=== PATIENT | female | born 1945 | race Caucasian/White ===

== ENCOUNTER 2018-11-07 16:55 | Inpatient (IN) | payer MEDICARE, OTHER ==
[2018-11-07] MEDS ORDERED: NORMAL SALINE 1000 ML 1,000 ML IV ONE ×2 (17:21→18:58)
[2018-11-07] MEDS ORDERED: ONDANSETRON HCL INJ/PF 4 MG/2 ML SDV IV ONE (17:22)
[2018-11-07 18:18] LABS: ABSOLUTE BASOPHILS # (AUTO) 0.2 10^3/uL (0.0-0.2); ABSOLUTE EOSINOPHILS # (AUTO) 0.2 10^3/uL (0.0-0.6); ABSOLUTE LYMPHOCYTES (AUTO) 2.1 10^3/uL (0.5-4.7); ABSOLUTE MONOCYTES (AUTO) 0.5 10^3/uL (0.1-1.4); ABSOLUTE NEUT (AUTO) 16.9 10^3/uL (1.7-8.2); EOSINOPHILS % (AUTO) 0.8 % (0-6); HEMATOCRIT 38.7 % (36.0-47.0); HEMOGLOBIN 12.6 g/dL (12.0-15.5); LYMPHOCYTES % (AUTO) 10.6 % (13-45); MEAN CORPUSCULAR HEMOGLOBIN 31.2 pg (27.0-33.4); MEAN CORPUSCULAR HGB CONC 32.7 g/dL (32.0-36.0); MEAN CORPUSCULAR VOLUME 96 fl (80-97); MONOCYTES % (AUTO) 2.7 % (3-13); PLATELET COUNT 299 10^3/uL (150-450); RED BLOOD COUNT 4.05 10^6/uL (3.72-5.28); SEGMENTED NEUTROPHILS % (AUTO) 84.9 % (42-78); TOTAL CELLS COUNTED % (AUTO) 100 %; WHITE BLOOD COUNT 19.8 10^3/uL (4.0-10.5)
[2018-11-07 18:19] LABS: VENOUS BLOOD BASE EXCESS -6.8 mmol/L; VENOUS BLOOD HCO3 18.5 mmol/L (20-32); VENOUS BLOOD PCO2 36.7 mmHg (35-63); VENOUS BLOOD PH 7.32 (7.30-7.42)
[2018-11-07 18:37] LABS: ALANINE AMINOTRANSFERASE 18 U/L (9-52); ALKALINE PHOSPHATASE 115 U/L (38-126); ANION GAP 16 (5-19); ASPARTATE AMINO TRANSFERASE 36 U/L (14-36); BILIRUBIN,DIRECT 0.2 mg/dL (0.0-0.4); BILIRUBIN,TOTAL 0.7 mg/dL (0.2-1.3); BLOOD UREA NITROGEN 23 mg/dL (7-20); CALCIUM 9.4 mg/dL (8.4-10.2); CARBON DIOXIDE 19 mmol/L (22-30); CHLORIDE 100 mmol/L (98-107); LIPASE 81.9 U/L (23-300); POTASSIUM 5.9 mmol/L (3.6-5.0); SODIUM 134.8 mmol/L (137-145); TOTAL PROTEIN 8.2 g/dL (6.3-8.2)
[2018-11-07 18:45] LABS: GLUCOSE 498 mg/dL (75-110)
--- NOTE | 2018-11-07 18:53 | EKG REPORT ---
SEVERITY:- OTHERWISE NORMAL ECG - SINUS TACHYCARDIA : Confirmed by: Esequiel Vicente MD 07-Nov-2018 18:52:47
[2018-11-07] MEDS ORDERED: INSULIN REG, HUMAN 100 UNIT/ML 3 ML VIAL (PYX) IV ONE (19:17)
[2018-11-07] MEDS ORDERED: CALCIUM GLUCONATE 1000 MG/10 ML INJ IV ONE (19:17)
--- NOTE | 2018-11-07 21:27 | RADIOLOGY REPORT (SQ) ---
XR CHEST 2 VIEWS HISTORY: Nausea and vomiting. COMPARISON: None. FINDINGS: The heart size is normal. The lungs are clear. No pleural effusions or pneumothorax is seen. No acute bony findings. IMPRESSION: No evidence of acute cardiopulmonary disease.
[2018-11-07] MEDS ORDERED: PIPERACILLIN/TAZOBACTAM 3.375 GM VIAL IV ONE (22:18)
--- NOTE | 2018-11-07 22:22 | ER Document Report ---
ED General - General Chief Complaint: Nausea/Vomiting Stated Complaint: ABDOMINAL PAIN Time Seen by Provider: 11/07/18 17:21 TRAVEL OUTSIDE OF THE [place] IN LAST 30 DAYS: No - HPI Patient complains to provider of: nausea Onset: Other - 73-year-old female with diabetes type 2 that presents for evaluation of profound weakness and fatigue as well as persistent nausea which began gradually earlier today and worsened acutely while she was showering leading her to feel profoundly nauseous lightheaded and like she might fall to the ground at which time she laid in the bed at her 's behest only to have an increase in nausea anytime she moved thereafter. She has never felt li ke this in the past, she did have some abdominal pain and cramping associated with this. She notes that she had one massive bowel movement this morning with a little bit of blood but no other symptoms. She denies any episodes of chest pain shortness of breath recent rashes recent illnesses recent medication changes or other illnesses. - Related Data Allergies/Adverse Reactions: acetaminophen [From Darvocet-N] Allergy (Verified 11/07/18 18:11) propoxyphene [From Darvocet-N] Allergy (Verified 11/07/18 18:11) warfarin Allergy (Verified 11/07/18 18:11) Penicillins Adverse Reaction (Verified 11/07/18 18:11) pcn Adverse Reaction (Uncoded 11/07/18 18:11) Past Medical History - General Information source: Patient, Relative - Social History Smoking Status: Never Smoker Chew tobacco use (# tins/day): No Frequency of alcohol use: None Family History: None Patient has suicidal ideation: No Patient has homicidal ideation: No Renal/ Medical History: Denies: Hx Peritoneal Dialysis Review of Systems - Review of Systems -: Yes All other systems reviewed and negative Physical Exam - Vital signs Vitals: Resp 25 H 11/07/18 16:59 - General General appearance: Anxious, Lethargic In distress: Moderate - HEENT Head: Normocephalic Eyes: Normal Conjunctiva: Normal Cornea: Normal Eyelashes: Normal Pupils: PERRL - Respiratory Respiratory status: Tachypnea Chest status: Nontender Breath sounds: Normal Chest palpation: Normal - Cardiovascular Rhythm: Tachycardia Heart sounds: Normal auscultation - Abdominal Inspection: Normal Distension: No distension Bowel sounds: Normal Tenderness: Nontender - Back Back: Normal, Nontender - Extremities General upper extremity: Normal inspection, Nontender, Normal strength, Normal temperature General lower extremity: Normal inspection, Nontender, Normal strength, Normal temperature - Neurological Neuro grossly intact: Yes Cognition: Normal Orientation: AAOx4 [place] Coma Scale Eye Opening: Spontaneous [place] Coma Scale Verbal: Oriented [place] Coma Scale Motor: Obeys Commands [place] Coma Scale Total: 15 Speech: Normal Cranial nerves: Normal Cerebellar coordination: Normal Motor strength normal: LUE, RUE, LLE, RLE - Psychological Associated symptoms: Normal affect Course - Re-evaluation Re-evalutation: Here is a woman who upon arrival appeared in obvious distress, she was di aphoretic, clammy skin and with active retching in the bed. She is complaining of profound nausea without obvious pain anywhere. Had been doing okay prior to this. Because of her ill appearance initiated broad workup including CBC CMP lactic acid chest x-ray EKG troponin. Administered Zofran for patient's nausea as well as initiated fluids. Was contacted as this patient's initial lactic acid was profoundly elevated at greater than 5. Patient was noted to have hyperglycemia, hyperkalemia, and a profound leukocytosis. Administered insulin as well as calcium gluconate for patient's potassium. She had an EKG performed which was nondiagnostic. Following administration of Zofran and IV fluids the patient noted that her nausea persisted but she was actually feeling much better at this time her heart rate work of breathing and blood pressure had normalized. A more thorough physical examination was undertaken at this time, she was given a head to toe skin examination which did not demonstrate any decubitus ulcers, obvious injuries, no rashes, no abrasions. Her lung sounds were clear. Her abdominal examination remained benign on repeated examination. She had approximately 4 examinations. She continued to have intermittent belching and retching. Proceeded with a second troponin which was again negative for this patient. Repeated lactate was undertaken. Her repeated lactate was elevated in comparison to previous, the determination was made to administer prophylactic antibiotics in case of any abdominal catastrophe and pending. Because of the patient's limited exam secondary to her habitus proceeded with CT imaging of the abdomen and pelvis in case of any underlying abscess or potential underlying ischemia. CT abdomen and pelvis did not demonstrate any obvious cause for this patient's profound nausea, abdominal symptoms, lightheadedness and weakness. Because this patient has derangements including a leukocytosis, elevated lactate, some shortness of breath and an AK I as well as hyperkalemia believe she would benefit from admission to the hospital reassessment and monitoring. She has been admitted to the hospitalist Dr. Rankin who agrees to evaluate and admit this patient. At this time she says that her nausea is likely result of her underlying reflux that she would like something to help with it, will order Pepcid as well as fentanyl for this patient's reflux. - Vital Signs Vital signs: Temp Pulse Resp BP Pulse Ox 98.7 F 12 103/48 L 99 11/07/18 23:28 11/07/18 23:01 11/07/18 23:01 11/07/18 23:01 - Laboratory Result Diagrams: 11/07/18 18:00 11/07/18 18:00 Laboratory results interpreted by me: 11/07/18 11/07/18 11/07/18 17:03 18:00 18:00 WBC 19.8 H Seg Neutrophils % 84.9 H Lymphocytes % 10.6 L Monocytes % 2.7 L Absolute Neutrophils 16.9 H VBG HCO3 Sodium 134.8 L Potassium 5.9 H Carbon Dioxide 19 L BUN 23 H Creatinine 1.30 H Est GFR ( Amer) 49 L Est GFR (Non-Af Amer) 40 L Glucose 498 H* POC Glucose 353 H Lactic Acid Urine Protein Urine Glucose (UA) Urine Ketones Urine Blood 11/07/18 11/07/18 11/07/18 18:00 18:00 21:13 WBC Seg Neutrophils % Lymphocytes % Monocytes % Absolute Neutrophils VBG HCO3 18.5 L Sodium Potassium Carbon Dioxide BUN Creatinine Est GFR ( Amer) Est GFR (Non-Af Amer) Glucose POC Glucose Lactic Acid 5.7 H Urine Protein 30 H Urine Glucose (UA) >=500 H Urine Ketones TRACE H Urine Blood LARGE H 11/07/18 21:45 WBC Seg Neutrophils % Lymphocytes % Monocytes % Absolute Neutrophils VBG HCO3 Sodium Potassium Carbon Dioxide BUN Creatinine Est GFR ( Amer) Est GFR (Non-Af Amer) Glucose POC Glucose Lactic Acid 6.2 H Urine Protein Urine Glucose (UA) Urine Ketones Urine Blood Discharge - Discharge Clinical Impression: Nausea, Lactic acid acidosis Leukocytosis Qualifiers: Leukocytosis type: unspecified Qualified Code(s): D72.829 - Elevated white bl ood cell count, unspecified Condition: Stable Disposition: ADMITTED INPATIENT Admitting Provider: Hospitalist Unit Admitted: Medical Floor
[2018-11-07 22:31] LABS: APPEARANCE,URINE CLOUDY; BILIRUBIN,URINE NEGATIVE (NEGATIVE); COLOR,URINE AMBER; GLUCOSE, URINE >=500 mg/dL (NEGATIVE); KETONES,URINE TRACE mg/dL (NEGATIVE); LEUKOCYTE ESTERASE,URINE NEGATIVE (NEGATIVE); NITRITE,URINE NEGATIVE (NEGATIVE); PROTEIN,URINE 30 mg/dL (NEGATIVE); URINE SPECIFIC GRAVITY 1.018; UROBILINOGEN,URINE NEGATIVE mg/dL (<2.0)
[2018-11-07] MEDS: NORMAL SALINE 1000 ML 1,000 ML IV PRN (23:48)
--- NOTE | 2018-11-07 23:58 | RADIOLOGY REPORT (SQ) ---
CT ABDOMEN PELVIS WITH IV CONTRAST HISTORY: Lower back pain. COMPARISON: None. TECHNIQUE: CT scan of the abdomen and pelvis with IV contrast. This exam was performed according to our departmental dose-optimization program, which includes automated exposure control, adjustment of the mA and/or kV according to patient size and/or use of iterative reconstruction technique. FINDINGS: The lung bases are clear. No pleural or pericardial effusions. There is hepatic steatosis. The gallbladder, spleen, pancreas, adrenal glands, and kidneys are unremarkable. No obstructing urinary stones. A simple renal cyst is seen in the left kidney. The pelvic organs are also unremarkable. No small bowel obstruction. There are scattered colonic diverticula without surrounding inflammatory changes. There has been a prior appendectomy. There is intramural wall thickening of the colon suggesting sequela of colitis. No intraperitoneal free fluid or free air is seen. The aorta is normal caliber and contains atherosclerotic calcifications. An infrarenal IVC filter is present. Prior L4-L5 posterior spinal and interbody fusion. Prior total left hip arthroplasty. 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 IMPRESSION: 1. No acute intra-abdominal pathology. 2. Diverticulosis without inflammatory findings. 3. L4-L5 posterior spinal fusion with hardware grossly intact. 4. 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
[2018-11-08] MEDS ORDERED: INSULIN REG, HUMAN 100 UNIT/ML 3 ML VIAL (PYX) IV ONE (00:04)
[2018-11-08] MEDS ORDERED: FAMOTIDINE 20 MG TABLET PO ONE (00:29)
[2018-11-08] MEDS ORDERED: FENTANYL CITRATE INJ/PF 100 MCG/2 ML AMPUL IV ONE (00:29)
[2018-11-08] MEDS ORDERED: MAGNESIUM HYDROXIDE SUSP 30 ML UDCUP PO PRN (01:51)
[2018-11-08] MEDS ORDERED: MAG HYDROX/AL HYDROX/SIMETH SUSP 30 ML UDCUP PO PRN (01:51)
[2018-11-08] MEDS ORDERED: HYDRALAZINE HCL INJ/PF 20 MG/1 ML SDV IV PRN (01:59)
[2018-11-08] MEDS ORDERED: GLUCAGON,HUMAN RECOMB 1 MG INJ IM PRN (02:03)
[2018-11-08] MEDS ORDERED: DEXTROSE 50%-WATER 25 GM/50 ML DISP.SYRIN IV PRN ×2 (02:03)
[2018-11-08] MEDS ORDERED: DEXTROSE 40% GEL 15 GM TUBE PO PRN ×2 (02:03)
[2018-11-08] MEDS ORDERED: INSULIN REG, HUMAN 100 UNIT/ML 3 ML VIAL (PYX) SUBCUT PRN (02:03)
[2018-11-08] MEDS: NORMAL SALINE 1000 ML 1,000 ML IV PRN ×5 (02:07→21:25)
[2018-11-08] MEDS ORDERED: SODIUM POLYSTYRENE SULFONATE 15 GM/60 ML PO ONE (02:30)
[2018-11-08 04:23] LABS: ABSOLUTE LYMPHOCYTES (AUTO) 1.7 10^3/uL (0.5-4.7); ABSOLUTE MONOCYTES (AUTO) 0.7 10^3/uL (0.1-1.4); BASOPHILS % (AUTO) 0.3 % (0-2); EOSINOPHILS % (AUTO) 0.1 % (0-6); HEMATOCRIT 35.3 % (36.0-47.0); HEMOGLOBIN 11.4 g/dL (12.0-15.5); MEAN CORPUSCULAR HEMOGLOBIN 30.8 pg (27.0-33.4); MEAN CORPUSCULAR HGB CONC 32.3 g/dL (32.0-36.0); MEAN CORPUSCULAR VOLUME 96 fl (80-97); MONOCYTES % (AUTO) 4.8 % (3-13); PLATELET COUNT 166 10^3/uL (150-450); RED CELL DISTRIBUTION WIDTH 13.8 % (11.5-14.0); SEGMENTED NEUTROPHILS % (AUTO) 83.8 % (42-78); TOTAL CELLS COUNTED % (AUTO) 100 %; WHITE BLOOD COUNT 15.5 10^3/uL (4.0-10.5)
[2018-11-08] MEDS: NALBUPHINE HCL INJ 10 MG/1 ML AMPULE IV PRN ×2 (04:35→14:50)
[2018-11-08 04:41] LABS: ANION GAP 15 (5-19); BLOOD UREA NITROGEN 27 mg/dL (7-20); CALCIUM 8.2 mg/dL (8.4-10.2); CARBON DIOXIDE 18 mmol/L (22-30); CHLORIDE 105 mmol/L (98-107); CHOLESTEROL 210.79 mg/dL (0-200); POTASSIUM 5.5 mmol/L (3.6-5.0); SODIUM 137.5 mmol/L (137-145); TRIGLYCERIDES 243 mg/dL (<150)
[2018-11-08 04:53] LABS: DIRECT LDL 106 mg/dL (<100)
[2018-11-08 04:55] LABS: CREATINE KINASE MB 0.81 ng/mL (<4.55); TROPONIN I 0.018 ng/mL
[2018-11-08 05:00] LABS: FREE T3 2.62 pg/mL (2.77-5.27); FREE T4 (FREE THYROXINE) 1.53 ng/dL (0.78-2.19)
[2018-11-08 05:08] LABS: VLDL CHOLESTEROL 48.6 mg/dL (10-31)
[2018-11-08 05:09] LABS: GLUCOSE 455 mg/dL (75-110)
[2018-11-08 05:14] LABS: THYROID STIMULATING HORMONE 2.74 uIU/mL (0.47-4.68)
--- NOTE | 2018-11-08 05:14 | PDOC H&P ---
History of Present Illness Admission Date/PCP: 11/08/18 00:33 LOU EDWARDS MD Patient complains of: Generalized weakness History of Present Illness: ZAID DONALDSON is a 73 year old female presented to the emergency room with a 1 day history of severe generalized weakness. Patient admits that she began feeling severely weak earlier today and also noted intermittent mild nausea and a brief episode of mild abdominal cramping pain of a vague generalized nature. She decided to take a shower, however she soon had worsening of her weakness and became very lightheaded feeling like she may fall in the shower. She made her way to the bedroom and laid down on the bed and seemed to improve a little bit as long as she did not move. Any movement resulted in a significant increase in her sensation of weakness and nausea. She had a large bowel movement this morn ing and noticed a small amount of blood when she wiped which is not unusual for her. She denies prior similar episodes and has not identified any additional aggravating or ameliorating factors for her symptoms. In the emergency room she was found to to be hemodynamically stable, but to have a blood sugar of 498 as well as a leukocytosis of greater than 19,000. Her serum potassium was 5.9 and her serum lactate was initially 5.7 rising to 6.2 after receiving IV fluid therapy. Her BUN was slightly elevated at 23 and her creatinine was slightly elevated at 1.3. With these findings patient was admitted for further evaluation and treatment of her SIRS syndrome. Past Medical History Cardiac Medical History: Denies: Atrial Fibrillation, Coronary Artery Disease, DVT, Hyperlipidema, Hypertension, Pulmonary Embolism Pulmonary Medical History: Denies: Asthma, Chronic Obstructive Pulmonary Disease (COPD) EENT Medical History: Reports: Other - Bad teeth Denies: Cataracts Neurological Medical History: Denies: Multiple Sclerosis, Seizures Endocrine Medical History: Reports: Diabetes Mellitus Type 2, Hypothyroidism, Obesity Denies: Diabetes Mellitus Type 1, Hyperthyroidism Renal/ Medical History: Denies: Chronic Kidney Disease, Nephrolithiasis Malignancy Medical History: Reports: None GI Medical History: Denies: Cirrhosis, Hepatitis Musculoskeltal Medical History: Reports: Arthritis, Other - Recent right hip pain Denies: Fibromyalgia, Gout Skin Medical History: Denies: Eczema, Psoriasis Psychiatric Medical History: Denies: Alcohol Dependency, Substance Abuse, Tobacco Dependency Traumatic Medical History: Reports: None Hematology: Denies: Anemia, Bleeding Tendencies Infectious Medical History: Reports: None Past Surgical History Past Surgical History: Reports: Hip Replacement, Orthopedic Surgery - Left hip replacement Social History Information Source: Patient Lives with: Spouse/Significant other Smoking Status: Never Smoker Frequency of Alcohol Use: None Hx Recreational Drug Use: No Drugs: None Hx Prescription Drug Abuse: No - Advance Directive Resuscitation Status: Full Code Surrogate healthcare decision maker:: Family History Family History: Arthritis, DM, Thyroid Disfunction Parental Family History Reviewed: Yes Children Family History Reviewed: No Sibling(s) Family History Reviewed.: Yes Medication/Allergy Allergies/Adverse Reactions: acetaminophen [From Darvocet-N] Allergy (Verified 11/07/18 18:11) propoxyphene [From Darvocet-N] Allergy (Verified 11/07/18 18:11) warfarin Allergy (Verified 11/07/18 18:11) Penicillins Adverse Reaction (Verified 11/07/18 18:11) pcn Adverse Reaction (Uncoded 11/07/18 18:11) Review of Systems Constitutional: ABSENT: chills, fever(s) Eyes: ABSENT: visual disturbances, other - Ocular pain Ears: ABSENT: hearing changes, other - Ear pain Nose, Mouth, and Throat: ABSENT: mouth pain, sore throat Cardiovascular: ABSENT: chest pain, dyspnea on exertion, palpitations Respiratory: ABSENT: cough, dyspnea Gastrointestinal: PRESENT: as per HPI, abdominal pain - Mild cramping, nausea - With gagging. ABSENT: constipation, diarrhea Genitourinary: ABSENT: dysuria, hematuria Musculoskeletal: ABSENT: deformity, joint swelling Integumentary: ABSENT: pruritus, rash Neurological: ABSENT: confusion, convulsions, memory loss, tremor(s) Psychiatric: ABSENT: anxiety, depression Endocrine: ABSENT: cold intolerance, heat intolerance Hematologic/Lymphatic: ABSENT: easy bleeding, easy bruising Physical Exam Vital Signs: Temp Pulse Resp BP Pulse Ox 98.7 F 12 103/48 L 99 11/07/18 23:28 11/07/18 23:01 11/07/18 23:01 11/07/18 23:01 Intake & Output 11/06/18 11/07/18 11/08/18 23:59 23:59 23:59 Intake Total 1999 Balance 1999 Weight 111.13 kg General appearance: PRESENT: no acute distress, cooperative, morbidly obese Head exam: PRESENT: atraumatic, normocephalic Eye exam: PRESENT: conjunctiva pink, EOMI. ABSENT: scleral icterus Ear exam: PRESENT: normal external ear exam. ABSENT: bleeding, drainage Mouth exam: PRESENT: dry mucosa, neck supple Teeth exam: PRESENT: poor dentation Neck exam: ABSENT: thyromegaly, tracheal deviation Respiratory exam: PRESENT: clear to auscultation heron, symmetrical, unlabored Cardiovascular exam: PRESENT: RRR. ABSENT: clicks, gallop, rubs Pulses: PRESENT: normal radial pulses, normal dorsalis pedis pul Vascular exam: PRESENT: normal capillary refill. ABSENT: pallor GI/Abdominal exam: PRESENT: normal bowel sounds, soft. ABSENT: tenderness Rectal exam: PRESENT: deferred Extremities exam: ABSENT: joint swelling, pedal edema Musculoskeletal exam: ABSENT: deformity, dislocation Neurological exam: PRESENT: alert, oriented to person, oriented to place, oriented to time, oriented to situation, CN II-XII grossly intact. ABSENT: motor sensory deficit Psychiatric exam: PRESENT: appropriate affect, normal mood Skin exam: PRESENT: dry, intact, warm. ABSENT: jaundice, rash, urticaria Results Laboratory Results: 11/07/18 18:00 11/07/18 18:00 11/07/18 11/07/18 11/07/18 18:00 18:00 18:00 WBC 19.8 H RBC 4.05 Hgb 12.6 Hct 38.7 MCV 96 MCH 31.2 MCHC 32.7 RDW 14.0 Plt Count 299 Seg Neutrophils % 84.9 H Lymphocytes % 10.6 L Monocytes % 2.7 L Eosinophils % 0.8 Basophils % 1.0 Absolute Neutrophils 16.9 H Absolute Lymphocytes 2.1 Absolute Monocytes 0.5 Absolute Eosinophils 0.2 Absolute Basophils 0.2 VBG pH VBG pCO2 VBG HCO3 VBG Base Excess Sodium 134.8 L Potassium 5.9 H Chloride 100 Carbon Dioxide 19 L Anion Gap 16 BUN 23 H Creatinine 1.30 H Est GFR ( Amer) 49 L Est GFR (Non-Af Amer) 40 L Glucose 498 H* Lactic Acid 5.7 H Calcium 9.4 Total Bilirubin 0.7 AST 36 ALT 18 Alkaline Phosphatase 115 Total Protein 8.2 Albumin 5.0 Lipase 81.9 Urine Color Urine Appearance Urine pH Ur Specific [place] Urine Protein Urine Glucose (UA) Urine Ketones Urine Blood Urine Nitrite Ur Leukocyte Esterase Urine WBC (Auto) Urine RBC (Auto) 11/07/18 11/07/18 11/07/18 18:00 21:13 21:45 WBC RBC Hgb Hct MCV MCH MCHC RDW Plt Count Seg Neutrophils % Lymphocytes % Monocytes % Eosinophils % Basophils % Absolute Neutrophils Absolute Lymphocytes Absolute Monocytes Absolute Eosinophils Absolute Basophils VBG pH 7.32 VBG pCO2 36.7 VBG HCO3 18.5 L VBG Base Excess -6.8 Sodium Potassium Chloride Carbon Dioxide Anion Gap BUN Creatinine Est GFR ( Amer) Est GFR (Non-Af Amer) Glucose Lactic Acid 6.2 H Calcium Total Bilirubin AST ALT Alkaline Phosphatase Total Protein Albumin Lipase Urine Color ALEX Urine Appearance CLOUDY Urine pH 5.0 Ur Specific [place] 1.018 Urine Protein 30 H Urine Glucose (UA) >=500 H Urine Ketones TRACE H Urine Blood LARGE H Urine Nitrite NEGATIVE Ur Leukocyte Esterase NEGATIVE Urine WBC (Auto) 4 Urine RBC (Auto) 63 11/07/18 11/07/18 18:00 20:33 Troponin I < 0.012 < 0.012 Impressions: Chest X-Ray 11/07/18 19:06 IMPRESSION: No evidence of acute cardiopulmonary disease. Abdomen/Pelvis CT 11/07/18 22:18 IMPRESSION: 1. No acute intra-abdominal pathology. 2. Diverticulosis without inflammatory findings. 3. L4-L5 posterior spinal fusion with hardware grossly intact. 4. 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 Assessment & Plan - Diagnosis (1) SIRS (systemic inflammatory response syndrome) Is this a current diagnosis for this admission?: Yes Plan: Patient significant changes with an elevated lactic acid worsening after hydration and a significant leukocytosis. She does not have hypertension or an obvious source of infection. She will be observed closely for further signs or symptoms that might confirm sepsis. Blood cultures are pending and Daily CBCs as well as serial lactic acids will be obtained. She will use Nubain 10 mg IV every 3 hours as needed for pain in her abdomen or hip. (2) Generalized weakness Is this a current diagnosis for this admission?: Yes Plan: Patient be treated with supportive cares including IV fluids. She will also receive symptomatic cares as needed. Her clinical exam will be followed on a daily basis for assessment of her weakness and a physical therapy consult will be obtained. She will use Nubain 10 mg IV every 3 hours as needed for pain in her abdomen or hip. (3) Hyperkalemia Is this a current diagnosis for this admission?: Yes Plan: Patient's hyperkalemia will be treated with Kayexalate x1 dose and her potassium will be followed in our regular basis with daily laboratory evaluations. (4) Diabetes mellitus type 2 in obese Is this a current diagnosis for this admission?: Yes Plan: The patient will have an aggressive effort at controlling her diabetes mellitus as she reports her diabetes is poorly controlled at home. Hemoglobin A1c will be obtained to determine her degree of home control and her home regiment will be reassessed in light of that value. (5) Hypothyroidism Qualifiers: Hypothyroidism type: unspecified Qualified Code(s): E03.9 - Hypothyroidism, unspecified Is this a current diagnosis for this admission?: Yes Plan: A thyroid profile will be obtained in the patient's current thyroid replacement will be re-evaluated based upon those results (6) Morbid obesity with BMI of 40.0-44.9, adult Is this a current diagnosis for this admission?: Yes Plan: Patient will be seen by the dietitian for dietary recommendations to assist her in controlling her diabetes and in achieving weight loss which will substantially improve her overall health. - Time Time Spent: 50 to 70 Minutes Critical Time spent with patient: Less than 15 minutes Medications reviewed and adjusted accordingly: Yes Anticipated discharge: Home - Inpatient Certification Based on my medical assessment, after consideration of the patient's comorbidities, presenting symptoms, or acuity I expect that the services needed warrant INPATIENT care.: Yes I certify that my determination is in accordance with my understanding of Medicare's requirements for reasonable and necessary INPATIENT services [42 CFR 412.3e].: Yes Medical Necessity: Significant Comorbidiites Make Outpatient Treatment Too Risky, Need Close Monitoring Due to Risk of Patient Decompensation, Need For IV Fluids, Need for Pain Control, Risk of Complication if Not Cared For in Hospital
[2018-11-08] MEDS: HEPARIN SOD (PORCINE) 5,000 UNIT/ML 1 ML SYRINGE SUBCUT SCH ×3 (06:16→21:45)
[2018-11-08 06:45] LABS: ARTERIAL BLOOD H2CO3 0.96 mmol/L (1.05-1.35); ARTERIAL BLOOD HCO3 14.6 mmol/L (20-24); ARTERIAL BLOOD O2 SATURATION 91.3 % (94-98); ARTERIAL BLOOD PCO2 31.9 mmHg (35-45); ARTERIAL BLOOD PH 7.28 (7.35-7.45); ARTERIAL BLOOD PO2 67.1 mmHg (80-100); ARTERIAL BLOOD TOTAL CO2 15.6 mmol/L (21-25)
[2018-11-08 06:48] LABS: ARTERIAL BLOOD FIO2 ROOM AIR
[2018-11-08] MEDS: METOCLOPRAMIDE HCL 10 MG TABLET PO SCH ×4 (08:09→21:24)
[2018-11-08] MEDS: FAMOTIDINE 20 MG TABLET PO SCH ×4 (08:10→21:24)
[2018-11-08] MEDS: SUCRALFATE SUSP 1 GM/10 ML UDCUP PO SCH ×4 (08:13→21:25)
[2018-11-08] MEDS: INSULIN GLARGINE,HUM.REC.ANLOG 300 UNIT/3 ML INSULN.PEN SUBCUT SCH (09:25)
[2018-11-08 10:51] LABS: CREATINE KINASE MB 0.93 ng/mL (<4.55); TROPONIN I 0.023 ng/mL
[2018-11-08] MEDS: DOCUSATE SODIUM 100 MG CAPSULE PO SCH ×2 (10:53→17:52)
[2018-11-08] MEDS: INSULIN REG, HUMAN 100 UNIT/ML 3 ML VIAL (PYX) SUBCUT SCH ×3 (12:57→21:44)
[2018-11-08] MEDS ORDERED: NALBUPHINE HCL INJ 10 MG/1 ML AMPULE ONE (14:46)
[2018-11-08 17:03] LABS: ANION GAP 16 (5-19); BLOOD UREA NITROGEN 34 mg/dL (7-20); CALCIUM 8.2 mg/dL (8.4-10.2); CARBON DIOXIDE 16 mmol/L (22-30); CHLORIDE 104 mmol/L (98-107); CREATINE KINASE 59 U/L (30-135); GLUCOSE 388 mg/dL (75-110); POTASSIUM 5.4 mmol/L (3.6-5.0)
[2018-11-08 17:12] LABS: CREATINE KINASE MB 0.86 ng/mL (<4.55); TROPONIN I 0.027 ng/mL
[2018-11-09] MEDS: HEPARIN SOD (PORCINE) 5,000 UNIT/ML 1 ML SYRINGE SUBCUT SCH ×3 (05:21→22:34)
[2018-11-09 05:30] LABS: ABSOLUTE BASOPHILS # (AUTO) 0.1 10^3/uL (0.0-0.2); ABSOLUTE EOSINOPHILS # (AUTO) 0.2 10^3/uL (0.0-0.6); ABSOLUTE LYMPHOCYTES (AUTO) 2.2 10^3/uL (0.5-4.7); ABSOLUTE MONOCYTES (AUTO) 1.2 10^3/uL (0.1-1.4); ABSOLUTE NEUT (AUTO) 12.6 10^3/uL (1.7-8.2); BASOPHILS % (AUTO) 0.7 % (0-2); EOSINOPHILS % (AUTO) 1.4 % (0-6); HEMATOCRIT 35.3 % (36.0-47.0); HEMOGLOBIN 11.6 g/dL (12.0-15.5); LYMPHOCYTES % (AUTO) 13.4 % (13-45); MEAN CORPUSCULAR HEMOGLOBIN 31.1 pg (27.0-33.4); MEAN CORPUSCULAR HGB CONC 32.8 g/dL (32.0-36.0); MEAN CORPUSCULAR VOLUME 95 fl (80-97); MONOCYTES % (AUTO) 7.6 % (3-13); PLATELET COUNT 119 10^3/uL (150-450); RED BLOOD COUNT 3.73 10^6/uL (3.72-5.28); RED CELL DISTRIBUTION WIDTH 13.6 % (11.5-14.0); SEGMENTED NEUTROPHILS % (AUTO) 76.9 % (42-78); TOTAL CELLS COUNTED % (AUTO) 100 %; WHITE BLOOD COUNT 16.4 10^3/uL (4.0-10.5)
[2018-11-09 05:58] LABS: ANION GAP 15 (5-19); BLOOD UREA NITROGEN 40 mg/dL (7-20); CALCIUM 7.8 mg/dL (8.4-10.2); CARBON DIOXIDE 15 mmol/L (22-30); CHLORIDE 106 mmol/L (98-107); GLUCOSE 306 mg/dL (75-110); SODIUM 136.2 mmol/L (137-145)
[2018-11-09 06:06] LABS: POTASSIUM 6.6 mmol/L (3.6-5.0)
[2018-11-09 06:22] LABS: ARTERIAL BLOOD BASE EXCESS -12.7 mmol/L; ARTERIAL BLOOD H2CO3 0.82 mmol/L (1.05-1.35); ARTERIAL BLOOD HCO3 12.4 mmol/L (20-24); ARTERIAL BLOOD O2 SATURATION 92.8 % (94-98); ARTERIAL BLOOD PCO2 27.4 mmHg (35-45); ARTERIAL BLOOD PH 7.27 (7.35-7.45); ARTERIAL BLOOD PO2 71.8 mmHg (80-100); ARTERIAL BLOOD TOTAL CO2 13.3 mmol/L (21-25)
[2018-11-09 06:23] LABS: ARTERIAL BLOOD FIO2 ROOM AIR
[2018-11-09] MEDS ORDERED: CALCIUM GLUCONATE 1,000 MG in DEXTROSE 5%-WATER 50 ML IV ONE (07:00)
[2018-11-09] MEDS: NORMAL SALINE 1000 ML 1,000 ML IV PRN (07:28)
[2018-11-09] MEDS ORDERED: CALCIUM GLUCONATE 1000 MG/10 ML INJ IV ONE ×2 (08:00)
[2018-11-09 08:02] LABS: ANION GAP 15 (5-19); BLOOD UREA NITROGEN 40 mg/dL (7-20); CALCIUM 7.6 mg/dL (8.4-10.2); CARBON DIOXIDE 13 mmol/L (22-30); CHLORIDE 107 mmol/L (98-107); GLUCOSE 338 mg/dL (75-110); SODIUM 134.6 mmol/L (137-145)
[2018-11-09 08:05] LABS: POTASSIUM 6.1 mmol/L (3.6-5.0)
--- NOTE | 2018-11-09 08:10 | EKG REPORT ---
SEVERITY:- BORDERLINE ECG - SINUS TACHYCARDIA LVH BY VOLTAGE : Confirmed by: Esequiel Vicente MD 09-Nov-2018 08:09:50
[2018-11-09] MEDS: INSULIN REG, HUMAN 100 UNIT/ML 3 ML VIAL (PYX) SUBCUT SCH ×4 (08:35→22:39)
[2018-11-09] MEDS: METOCLOPRAMIDE HCL 10 MG TABLET PO SCH ×4 (08:35→22:28)
[2018-11-09] MEDS: FAMOTIDINE 20 MG TABLET PO SCH ×4 (08:35→22:30)
[2018-11-09] MEDS: SUCRALFATE SUSP 1 GM/10 ML UDCUP PO SCH ×4 (08:35→22:27)
[2018-11-09] MEDS: INSULIN GLARGINE,HUM.REC.ANLOG 300 UNIT/3 ML INSULN.PEN SUBCUT SCH (08:36)
[2018-11-09] MEDS: DOCUSATE SODIUM 100 MG CAPSULE PO SCH ×2 (09:09→18:03)
[2018-11-09 12:39] LABS: ANION GAP 16 (5-19); BLOOD UREA NITROGEN 42 mg/dL (7-20); CALCIUM 7.8 mg/dL (8.4-10.2); CARBON DIOXIDE 15 mmol/L (22-30); CHLORIDE 102 mmol/L (98-107); GLUCOSE 365 mg/dL (75-110); POTASSIUM 5.7 mmol/L (3.6-5.0); SODIUM 132.8 mmol/L (137-145)
[2018-11-09 15:22] LABS: URINE AMPHETAMINES SCREEN NEGATIVE; URINE BARBITURATES SCREEN NEGATIVE; URINE BENZODIAZEPINES SCREEN NEGATIVE; URINE COCAINE SCREEN NEGATIVE; URINE MARIJUANA (THC) SCREEN NEGATIVE; URINE METHADONE SCREEN NEGATIVE; URINE PHENCYCLIDINE SCREEN NEGATIVE
[2018-11-09 15:26] LABS: URINE CREATININE 267.2 mg/dL (15-278); URINE PROTEIN 24.5 mg/dL (<12)
[2018-11-09 15:30] LABS: UR PRO/CREAT RATIO RESULT 0.1 mg/mg (0.0-0.2); URINE CREATININE 267.2 mg/dL (15-278); URINE PROTEIN 24.5 mg/dL (<12)
[2018-11-09] MEDS ORDERED: SODIUM POLYSTYRENE SULFONATE 15 GM/60 ML PO ONE ×2 (15:30→18:30)
[2018-11-09 15:33] LABS: URINE SODIUM < 5 mmol/L (30-90)
[2018-11-09 15:38] LABS: EOSINOPHIL SMEAR NO EOSINOPHILS SEEN; SPECIMEN TYPE URINE
[2018-11-09] MEDS ORDERED: FUROSEMIDE INJ/PF 40 MG/4 ML SDV IV ONE (17:00)
--- NOTE | 2018-11-09 17:11 | PDOC PROGRESS REPORT ---
Subjective Progress Note for:: 11/09/18 Subjective:: Patient was seen and examined today. She is actually feeling better. Her kidney function is deteriorating. Her potassium is elevated. She is acidotic. Glucose levels improved. She has been on aggressive IV fluids and she is barely making any urine. Reason For Visit: HYPERGLYCEMIA,HYPERKALEMIA Physical Exam Vital Signs: Temp Pulse Resp BP Pulse Ox 98.1 F 110 H 20 141/72 H 100 11/09/18 14:29 11/09/18 15:29 11/09/18 14:29 11/09/18 14:29 11/09/18 14:29 Intake & Output 11/08/18 11/09/18 11/10/18 06:59 06:59 06:59 Intake Total 4114 4126 1000 Balance 4114 4126 1000 Weight 249 lb 1.957 oz 249 lb 1.957 oz General appearance: PRESENT: no acute distress, cooperative, obese Head exam: PRESENT: atraumatic, normocephalic Eye exam: ABSENT: conjunctival injection Mouth exam: PRESENT: moist, neck supple Neck exam: ABSENT: meningismus, tenderness Respiratory exam: PRESENT: clear to auscultation heron. ABSENT: accessory muscle use Cardiovascular exam: PRESENT: RRR Pulses: PRESENT: normal radial pulses GI/Abdominal exam: PRESENT: normal bowel sounds, soft. ABSENT: tenderness Rectal exam: PRESENT: deferred Musculoskeletal exam: ABSENT: deformity Neurological exam: PRESENT: alert, awake, oriented to person, oriented to place, oriented to time, oriented to situation Psychiatric exam: PRESENT: appropriate affect. ABSENT: agitated, anxious Results Laboratory Results: 11/09/18 04:12 11/09/18 11:40 11/08/18 11/09/18 11/09/18 16:15 04:12 04:12 WBC 16.4 H RBC 3.73 Hgb 11.6 L Hct 35.3 L MCV 95 MCH 31.1 MCHC 32.8 RDW 13.6 Plt Count 119 L Seg Neutrophils % 76.9 Lymphocytes % 13.4 Monocytes % 7.6 Eosinophils % 1.4 Basophils % 0.7 Absolute Neutrophils 12.6 H Absolute Lymphocytes 2.2 Absolute Monocytes 1.2 Absolute Eosinophils 0.2 Absolute Basophils 0.1 Carbonic Acid HCO3/H2CO3 Ratio ABG pH ABG pCO2 ABG pO2 ABG HCO3 ABG O2 Saturation ABG Base Excess FiO2 Sodium 136.0 L 136.2 L Potassium 5.4 H 6.6 H* D Chloride 104 106 Carbon Dioxide 16 L 15 L Anion Gap 16 15 BUN 34 H 40 H Creatinine 2.60 H 3.41 H Est GFR ( Amer) 22 L 16 L Est GFR (Non-Af Amer) 18 L 13 L Glucose 388 H 306 H Lactic Acid Calcium 8.2 L 7.8 L Magnesium 1.3 L 11/09/18 11/09/18 11/09/18 05:59 07:21 09:22 WBC RBC Hgb Hct MCV MCH MCHC RDW Plt Count Seg Neutrophils % Lymphocytes % Monocytes % Eosinophils % Basophils % Absolute Neutrophils Absolute Lymphocytes Absolute Monocytes Absolute Eosinophils Absolute Basophils Carbonic Acid 0.82 L HCO3/H2CO3 Ratio 15:1 ABG pH 7.27 L ABG pCO2 27.4 L ABG pO2 71.8 L ABG HCO3 12.4 L ABG O2 Saturation 92.8 L ABG Base Excess -12.7 FiO2 ROOM AIR Sodium 134.6 L Potassium 6.1 H* Chloride 107 Carbon Dioxide 13 L Anion Gap 15 BUN 40 H Creatinine 3.44 H Est GFR ( Amer) 16 L Est GFR (Non-Af Amer) 13 L Glucose 338 H Lactic Acid 3.0 H Calcium 7.6 L Magnesium 11/09/18 11:40 WBC RBC Hgb Hct MCV MCH MCHC RDW Plt Count Seg Neutrophils % Lymphocytes % Monocytes % Eosinophils % Basophils % Absolute Neutrophils Absolute Lymphocytes Absolute Monocytes Absolute Eosinophils Absolute Basophils Carbonic Acid HCO3/H2CO3 Ratio ABG pH ABG pCO2 ABG pO2 ABG HCO3 ABG O2 Saturation ABG Base Excess FiO2 Sodium 132.8 L Potassium 5.7 H Chloride 102 Carbon Dioxide 15 L Anion Gap 16 BUN 42 H Creatinine 3.44 H Est GFR ( Amer) 16 L Est GFR (Non-Af Amer) 13 L Glucose 365 H Lactic Acid Calcium 7.8 L Magnesium 11/07/18 11/07/18 11/08/18 18:00 20:33 04:10 Creatine Kinase 48 CK-MB (CK-2) Troponin I < 0.012 < 0.012 11/08/18 11/08/18 11/08/18 04:10 10:10 10:10 Creatine Kinase 54 CK-MB (CK-2) 0.81 0.93 Troponin I 0.018 0.023 11/08/18 11/08/18 16:15 16:15 Creatine Kinase 59 CK-MB (CK-2) 0.86 Troponin I 0.027 Impressions: Chest X-Ray 11/07/18 19:06 IMPRESSION: No evidence of acute cardiopulmonary disease. Abdomen/Pelvis CT 11/07/18 22:18 IMPRESSION: 1. No acute intra-abdominal pathology. 2. Diverticulosis without inflammatory findings. 3. L4-L5 posterior spinal fusion with hardware grossly intact. 4. 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 Assessment & Plan - Diagnosis (1) Acute renal failure Is this a current diagnosis for this admission?: Yes Plan: Fractional excretion of sodium is 0.04% Received aggressive IV fluids, creatinine is worsening Discussed with Dr. Cason and patient will start emergent dialysis today Check kidney ultrasound (2) Hyperglycemia due to type 2 diabetes mellitus Is this a current diagnosis for this admission?: Yes Plan: Continue insulin coverage. Monitor glucose levels (3) Hyperkalemia Is this a current diagnosis for this admission?: Yes Plan: Patient will undergo emergent dialysis today. Will give Kayexalate. (4) Hypothyroidism Qualifiers: Hypothyroidism type: unspecified Qualified Code(s): E03.9 - Hypothyroidism, unspecified Is this a current diagnosis for this admission?: Yes Plan: TSH is normal. (5) Morbid obesity with BMI of 40.0-44.9, adult Is this a current diagnosis for this admission?: Yes Plan: Recommend lifestyle modifications
--- NOTE | 2018-11-09 17:22 | OPERATIVE REPORT E ---
Operative Report NAME: ZAID DONALDSON : 1945 AGE: 73Y DATE OF SURGERY: 11/08/2018 ROOM: 315 PREOPERATIVE DIAGNOSIS: PATIENT WITH ACUTE RENAL FAILURE, NEEDED DIALYSIS ACCESS. POSTOPERATIVE DIAGNOSIS: PATIENT WITH ACUTE RENAL FAILURE, NEEDED DIALYSIS ACCESS. OPERATION: PLACEMENT OF TRIALYSIS CATHETER THROUGH THE RIGHT INTERNAL JUGULAR VEIN UNDER ULTRASOUND GUIDANCE. SURGEON: SPENCER STAPLES M.D. ANESTHESIA: Local. INDICATION: This 73-year-old female is noted to have acute renal failure and needed acute dialysis. PROCEDURE: The patient was placed in Trendelenburg position, and the right neck prepped and draped in the usual sterile fashion. With the use of the ultrasound, the right internal jugular vein was identified and local anesthesia infiltrated in the skin just above the clavicle. The right internal jugular vein was then punctured with the aid of the ultrasound, and the guidewire passed through the needle toward the area of the superior vena cava. A guidewire was then passed through the needle and the needle pulled out. Insertion site was then dilated. A Trialysis 20 cm long catheter was then threaded through the guidewire to a distance of about 19 cm. All the ports of the Trialysis catheter were aspirated blood easily and instilled saline easily. The catheter was then anchored to the skin with 3-0 Nylon. A Biopatch was placed at the insertion site and a transparent sterile dressing was then placed over the Biopatch and catheter. A chest x-ray will be performed to make sure of the placement and to rule out any pneumothorax. The patient tolerated the procedure well. DICTATING PHYSICIAN: SPENCER STAPLES M.D. [id number] Y#: [id number] ID: [id number] JOB#: [id number] ACCT: [id number] cc:SPENCER STAPLES M.D. >
--- NOTE | 2018-11-09 17:39 | RADIOLOGY REPORT (SQ) ---
EXAM DESCRIPTION: U/S RETROPERITON LTD COMPLETED DATE/TIME: 11/09/2018 5:31 pm REASON FOR STUDY: KERI COMPARISON: None. TECHNIQUE: Dynamic and static grayscale images acquired of the kidneys and bladder and recorded on P ACS. Additional selected color Doppler and spectral images recorded. LIMITATIONS: None. FINDINGS: RIGHT KIDNEY: Normal size. Normal echogenicity. No solid or suspicious masses. No h ydronephrosis. No calcifications. LEFT KIDNEY: Normal size. Normal echogenicity. There is a small cyst off the inferior pole measu red 2 cm in greatest diameter. No hydronephrosis. No calcifications. BLADDER: The bladder is decompressed by Aleman catheter. OTHER FINDINGS: No other significant finding. IMPRESSION: Small left renal cyst. The bladder is decompressed by Aleman catheter. No other signifi cant findings. TECHNICAL DOCUMENTATION: JOB ID: [id number] [email or web address]- All Rights Reserved Reading location - IP/workstation name: [email or web address]
--- NOTE | 2018-11-09 18:06 | RADIOLOGY REPORT (SQ) ---
EXAM DESCRIPTION: CHEST SINGLE VIEW COMPLETED DATE/TIME: 11/09/2018 5:52 pm REASON FOR STUDY: line placement COMPARISON: 11/07/2018 EXAM PARAMETERS: NUMBER OF VIEWS: One view. TECHNIQUE: Single frontal radiographic view of the chest acquired. RADIATION DOSE: NA LIMITATIONS: None. FINDINGS: LUNGS AND PLEURA: Right-sided dialysis catheter is in place. Catheter tip overlies the ri ght atrium. No pneumothorax. Lung alex are clear. MEDIASTINUM AND HILAR STRUCTURES: No masses. Contour normal. HEART AND VASCULAR STRUCTURES: Heart normal in size. Normal vasculature. BONES: No acute findings. HARDWARE: None in the chest. OTHER: No other significant finding. IMPRESSION: Right-sided dialysis catheter has been placed and is in good position. TECHNICAL DOCUMENTATION: JOB ID: [id number] [employer]- All Rights Reserved Reading location - IP/workstation name: [email or web address]
--- NOTE | 2018-11-09 20:18 | PDOC CONSULTATION ---
Consultation Consult Date: 11/09/18 Attending physician:: FLORINA JUAREZ Consult reason:: I was asked to see the patient because of acute kidney injury and decreased urine output. History of Present Illness Admission Date/PCP: 11/08/18 00:33 History of Present Illness: ZAID DONALDSON is a 73 year old female history of diabetes mellitus and obesity who was admitted yesterday because of acute onset of weakness. She also presented with history of some nausea and abdominal cramping. In the emergency room she was noted to be hyperglycemic with blood sugar of 498 and hyperkalemic with potassium of 5.9 with initial bicarbonate of 19. Her initial kidney function showed a BUN of 23, creatinine of 1.3 with estimated GFR of 40. She had initial mild sodium of 134.8. Her urinalysis showed minimal protein of 30 glucose greater than 500, large blood with RBC of 63 which I presume could be a catheterized specimen. Her chest x-ray was negative. She also had CT of the abdomen and pelvis with IV contrast which did not show any acute pathology except for diverticulosis without any inflammation. She was then treated with IV fluid boluses, calcium gluconate and a dose of Kayexalate 60 g last night. Subsequent blood work showed worsening kidney function the most current one with a BUN of 42, creatinine 3.44, with estimated GFR of 13. Sodium is now 132.8 and potassium has risen to 6.6 and has come down to 5.7 currently. Her bicarbonate has gone down to 13-15 today. Due to IV fluid boluses she is approximately 9 L positive. She is incontinent of urine so no urine output was quantified. When I saw her at around noontime Aleman catheter was inserted and only 60 mL of urine was obtained. No urine output was noted since then. Patient relates that for the last few weeks she has been experiencing urinary urgency to the point that she lost control of her bladder. She noted decreased urine output for about a week during the day but she said she goes to the bathroom about every 2 hours at nighttime. She denies any foamy urine or blood in the urine. She denies any nausea, vomiting, diarrhea. She denies any chest pains no shortness of breath. She has been using Mobic 15 mg for 3 months. She was given to Pain medications. She claims that her appetite is good although it was somewhat decreased for the last couple of days. She is drinking good amount of fluids. She denies any cough no other respiratory complaints. Past Medical History EENT Medical History: Reports: Other - Bad teeth Endocrine Medical History: Reports: Diabetes Mellitus Type 2, Hypothyroidism, Obesity Musculoskeltal Medical History: Reports: Arthritis, Other - Recent right hip pain Psychiatric Medical History: Reports: Depression Past Surgical History Past Surgical History: Reports: Appendectomy, Hip Replacement, Orthopedic Surgery - Left hip replacement, back surgeries, Thyroidectomy, Other - Oophorectomy Social History Information Source: Patient Lives with: Spouse/Significant other Smoking Status: Former Smoker Frequency of Alcohol Use: Occasional Hx Recreational Drug Use: Yes Drugs: None Hx Prescription Drug Abuse: No - Advance Directive Resuscitation Status: Full Code Family History Family History: Other - Emphysema in her father Parental Family History Reviewed: Yes Children Family History Reviewed: Yes Sibling(s) Family History Reviewed.: Yes Medication/Allergy Home Medications: Aspirin [Ecotrin 81 mg EC Tablet] 81 mg PO DAILY 11/08/18 Diclofenac Sodium [Voltaren 50 Mg Tablet.Dr] 50 mg PO Q8HP PRN 11/08/18 Duloxetine HCl [Cymbalta] 60 mg PO DAILY 11/08/18 Glimepiride [Amaryl 4 mg Tablet] 4 mg PO DAILY 11/08/18 Krill/Om-3/Dha/Epa/Phospho/Ast [Megared Magnolia-3 Krill Oil Sfgl] 1 each PO DAILY 11/08/18 Lutein/Zeaxanthin [Lutein-Zeaxanthin 25-5 mg Sfgl] 1 each PO DAILY 11/08/18 Methocarbamol [Robaxin 500 mg Tablet] 500 mg PO Q12HP PRN 11/08/18 Omeprazole 20 mg PO DAILY 11/08/18 Ubidecarenone/Vit E Acet [Co Q-10 100 mg Softgel] 1 each PO DAILY 11/08/18 Allergies/Adverse Reactions: acetaminophen [From Darvocet-N] Allergy (Verified 11/07/18 18:11) propoxyphene [From Darvocet-N] Allergy (Verified 11/07/18 18:11) warfarin Allergy (Verified 11/07/18 18:11) Penicillins Adverse Reaction (Verified 11/07/18 18:11) pcn Adverse Reaction (Uncoded 11/07/18 18:11) Review of Systems All systems: reviewed and no additional remarkable complaints except as stated Review of Systems: Constitutional: ABSENT: chills, fatigue, fever(s), headache(s), weight gain, weight loss; admits to generalized weakness Eyes: ABSENT: visual disturbances Ears: ABSENT: hearing changes Cardiovascular: ABSENT: chest pain, dyspnea on exertion, edema, orthropnea, palpitations Respiratory: ABSENT: cough, dyspnea, hemoptysis Gastrointestinal: ABSENT: abdominal pain, constipation, diarrhea, hematemesis, hematochezia, nausea, vomiting Genitourinary: ABSENT: dysuria, hematuria; admits urinary urgency, incontinence, decreased urine output Musculoskeletal: ABSENT: joint swelling Integumentary: ABSENT: rash, wounds Neurological: ABSENT: abnormal gait, abnormal speech, confusion, dizziness, focal weakness, numbness, syncope Psychiatric: ABSENT: anxiety, depression Endocrine: ABSENT: cold intolerance, heat intolerance, polydipsia, polyuria Hematologic/Lymphatic: ABSENT: easy bleeding, easy bruising, lymphadenopathy Physical Exam Vital Signs: Temp Pulse Resp BP Pulse Ox 98.7 F 117 H 18 141/67 H 94 11/09/18 19:22 11/09/18 19:22 11/09/18 19:22 11/09/18 19:22 11/09/18 19:22 Intake & Output 11/08/18 11/09/18 11/10/18 06:59 06:59 06:59 Intake Total 4114 4126 1200 Output Total 25 Balance 4114 4126 1175 Weight 113 kg 113 kg Exam: General appearance: No acute distress, cooperative, well-developed, well- nourished, morbidly obese Head exam: PRESENT: atraumatic, normocephalic Eye exam: PRESENT: Conjunctiva slightly pale, EOMI, PERRLA. ABSENT: conjunctival injection, scleral icterus Mouth exam: PRESENT: moist, neck supple, tongue midline Neck exam: PRESENT: full ROM. ABSENT: carotid bruit, JVD, lymphadenopathy, thyromegaly Respiratory exam: PRESENT: clear to auscultation bilaterally. ABSENT: rales, rhonchi, stridor, wheezes Cardiovascular exam: PRESENT: RRR, +S1, +S2. ABSENT: systolic murmur Pulses: PRESENT: normal radial pulses, normal dorsalis pedis pulses GI/Abdominal exam: PRESENT: normal bowel sounds, soft. Obese ABSENT: guarding, mass, tenderness Rectal exam: Deferred Extremities exam: PRESENT: full ROM. ABSENT: calf tenderness, pedal edema Musculoskeletal: PRESENT: full ROM. ABSENT: deformity Neurological exam: PRESENT: alert, Awake, Oriented to person, Oriented to place, Oriented to time, reflexes normal, CN II-XII grossly intact. ABSENT: motor sensory deficit Psychiatric exam: PRESENT: appropriate affect, normal mood. ABSENT: homicidal ideation, suicidal ideation Skin exam: PRESENT: intact, dry, warm. ABSENT: rash Results Laboratory Results: 11/09/18 04:12 11/09/18 11:40 11/09/18 11/09/18 11/09/18 04:12 04:12 05:59 WBC 16.4 H RBC 3.73 Hgb 11.6 L Hct 35.3 L MCV 95 MCH 31.1 MCHC 32.8 RDW 13.6 Plt Count 119 L Seg Neutrophils % 76.9 Lymphocytes % 13.4 Monocytes % 7.6 Eosinophils % 1.4 Basophils % 0.7 Absolute Neutrophils 12.6 H Absolute Lymphocytes 2.2 Absolute Monocytes 1.2 Absolute Eosinophils 0.2 Absolute Basophils 0.1 Carbonic Acid 0.82 L HCO3/H2CO3 Ratio 15:1 ABG pH 7.27 L ABG pCO2 27.4 L ABG pO2 71.8 L ABG HCO3 12.4 L ABG O2 Saturation 92.8 L ABG Base Excess -12.7 FiO2 ROOM AIR Sodium 136.2 L Potassium 6.6 H* D Chloride 106 Carbon Dioxide 15 L Anion Gap 15 BUN 40 H Creatinine 3.41 H Est GFR ( Amer) 16 L Est GFR (Non-Af Amer) 13 L Glucose 306 H Lactic Acid Calcium 7.8 L Magnesium 1.3 L 11/09/18 11/09/18 11/09/18 07:21 09:22 11:40 WBC RBC Hgb Hct MCV MCH MCHC RDW Plt Count Seg Neutrophils % Lymphocytes % Monocytes % Eosinophils % Basophils % Absolute Neutrophils Absolute Lymphocytes Absolute Monocytes Absolute Eosinophils Absolute Basophils Carbonic Acid HCO3/H2CO3 Ratio ABG pH ABG pCO2 ABG pO2 ABG HCO3 ABG O2 Saturation ABG Base Excess FiO2 Sodium 134.6 L 132.8 L Potassium 6.1 H* 5.7 H Chloride 107 102 Carbon Dioxide 13 L 15 L Anion Gap 15 16 BUN 40 H 42 H Creatinine 3.44 H 3.44 H Est GFR ( Amer) 16 L 16 L Est GFR (Non-Af Amer) 13 L 13 L Glucose 338 H 365 H Lactic Acid 3.0 H Calcium 7.6 L 7.8 L Magnesium 11/07/18 11/07/18 11/08/18 18:00 20:33 04:10 Creatine Kinase 48 CK-MB (CK-2) Troponin I < 0.012 < 0.012 11/08/18 11/08/18 11/08/18 04:10 10:10 10:10 Creatine Kinase 54 CK-MB (CK-2) 0.81 0.93 Troponin I 0.018 0.023 11/08/18 11/08/18 16:15 16:15 Creatine Kinase 59 CK-MB (CK-2) 0.86 Troponin I 0.027 Impressions: Abdomen/Pelvis CT 11/07/18 22:18 IMPRESSION: 1. No acute intra-abdominal pathology. 2. Diverticulosis without inflammatory findings. 3. L4-L5 posterior spinal fusion with hardware grossly intact. 4. 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 Chest X-Ray 11/09/18 00:00 IMPRESSION: Right-sided dialysis catheter has been placed and is in good position. Renal Ultrasound 11/09/18 00:00 IMPRESSION: Small left renal cyst. The bladder is decompressed by Aleman catheter. No other significant findings. Assessment & Plan - Diagnosis (1) Acute kidney injury Is this a current diagnosis for this admission?: Yes Plan: Patient's kidney function has gotten worse since admission until now which is most likely secondary to contrast-induced nephropathy and she had a CT scan done on admission. This costs acute tubular necrosis. Currently the patient is anuric. She does not have any significant proteinuria and doubt any significant microhematuria. Clinically she does not look uremic though. She is not in any respiratory distress either. Nevertheless she would need acute renal replacement therapy. Since our services for hemodialysis is limited we will do her first hemodialysis treatment tomorrow as she appears to be clinically stable at this point. Patient already had a trialysis catheter placed with Dr. Lucia. Agree with discontinuation of IV fluids. Meanwhile I will give her a trial of diuretics tonight. Will increase dose depending on response. (2) Contrast dye induced nephropathy Is this a current diagnosis for this admission?: Yes (3) Hyperkalemia Is this a current diagnosis for this admission?: Yes Plan: Initial hyperkalemia is most likely secondary to hyperglycemia which has persisted due to worsening kidney function and acute kidney injury. (4) Metabolic acidosis Is this a current diagnosis for this admission?: Yes Plan: It appears that the patient might have mild DKA on presentation with hyperglyc emia, metabolic acidosis and trace ketones in the urine. She also has elevated lactic acid but no apparent source of any obvious infection. I doubt that she is septic at this point. Her acidosis is now complicated and worsened by acute kidney injury and aggressive IV fluid hydration since admission. Hopefully this will improve with initiation of hemodialysis tomorrow. (5) Hyponatremia Is this a current diagnosis for this admission?: Yes Plan: This is due to hypervolemic state. (6) Generalized weakness Is this a current diagnosis for this admission?: Yes (7) Hyperglycemia due to type 2 diabetes mellitus Is this a current diagnosis for this admission?: Yes Plan: Defer to hospitalist. (8) Hypothyroidism Qualifiers: Hypothyroidism type: unspecified Qualified Code(s): E03.9 - Hypothyroidism, unspecified Is this a current diagnosis for this admission?: Yes (9) Morbid obesity with BMI of 40.0-44.9, adult Is this a current diagnosis for this admission?: Yes - Notes Notes: Thank you very much for this consultation. I will follow the patient with you. - Time Time Spent: Greater than 70 Minutes
--- NOTE | 2018-11-10 00:02 | OPERATIVE REPORT E ---
Operative Report NAME: ZAID DONALDSON : 1945 AGE: 73Y DATE OF SURGERY: 11/09/2018 ROOM: 315 PREOPERATIVE DIAGNOSIS: ACUTE RENAL FAILURE, NEEDED DIALYSIS ACCESS. POSTOPERATIVE DIAGNOSIS: ACUTE RENAL FAILURE, NEEDED DIALYSIS ACCESS. OPERATION: Placement of Trialysis catheter via the right internal jugular vein under ultrasound guidance. SURGEON: SPENCER STAPLES M.D. ANESTHESIA: Local. INDICATION: This is a 73-year-old female who was diagnosed to have acute renal failure and needed emergency hemodialysis and needed hemodialysis access. DESCRIPTION OF PROCEDURE: The patient was placed in the Trendelenburg position and right neck area prepped and draped in the usual sterile fashion. With use of the ultrasound the right internal jugular vein was then identified and the skin injected with 1% lidocaine. The right internal jugular vein was then punctured under ultrasound guidance. The guidewire was then passed through the needle towards the area of the superior vena cava. The needle was removed and the puncture site dilated and a Trialysis catheter inserted through the guidewire to a distance of about 19 cm. All the ports of the Trialysis aspirated blood easily and instilled saline easily. It was then anchored to the skin with 3-0 Nylon. Biopatch placed at the insertion site and transparent sterile dressing was placed over the Biopatch and catheter. The patient tolerated the procedure well. A chest x-ray will be obtained for placement. DICTATING PHYSICIAN: SPENCER STAPLES M.D. [id number] PHY#: [id number] ID: [id number] JOB#: [id number] ACCT: [id number] cc:SPENCER STAPLES M.D. >
[2018-11-10] MEDS ORDERED: NORMAL SALINE 1000 ML 1,000 ML IV PRN (05:00)
[2018-11-10 05:35] LABS: ABSOLUTE BASOPHILS # (AUTO) 0.1 10^3/uL (0.0-0.2); ABSOLUTE EOSINOPHILS # (AUTO) 0.3 10^3/uL (0.0-0.6); ABSOLUTE LYMPHOCYTES (AUTO) 2.1 10^3/uL (0.5-4.7); ABSOLUTE MONOCYTES (AUTO) 1.1 10^3/uL (0.1-1.4); ABSOLUTE NEUT (AUTO) 13.4 10^3/uL (1.7-8.2); BASOPHILS % (AUTO) 0.7 % (0-2); EOSINOPHILS % (AUTO) 1.6 % (0-6); HEMATOCRIT 32.5 % (36.0-47.0); HEMOGLOBIN 10.9 g/dL (12.0-15.5); LYMPHOCYTES % (AUTO) 12.2 % (13-45); MEAN CORPUSCULAR HEMOGLOBIN 31.4 pg (27.0-33.4); MEAN CORPUSCULAR HGB CONC 33.5 g/dL (32.0-36.0); MEAN CORPUSCULAR VOLUME 94 fl (80-97); MONOCYTES % (AUTO) 6.7 % (3-13); RED BLOOD COUNT 3.47 10^6/uL (3.72-5.28); RED CELL DISTRIBUTION WIDTH 13.4 % (11.5-14.0); SEGMENTED NEUTROPHILS % (AUTO) 78.8 % (42-78); TOTAL CELLS COUNTED % (AUTO) 100 %
[2018-11-10 05:56] LABS: ANION GAP 17 (5-19); BLOOD UREA NITROGEN 50 mg/dL (7-20); CALCIUM 7.9 mg/dL (8.4-10.2); CARBON DIOXIDE 14 mmol/L (22-30); CHLORIDE 101 mmol/L (98-107); GLUCOSE 315 mg/dL (75-110); SODIUM 132.4 mmol/L (137-145)
[2018-11-10 05:57] LABS: PLATELET COUNT 85 10^3/uL (150-450)
[2018-11-10 06:11] LABS: POTASSIUM 4.5 mmol/L (3.6-5.0)
[2018-11-10] MEDS: HEPARIN SOD (PORCINE) 5,000 UNIT/ML 1 ML SYRINGE SUBCUT SCH ×3 (06:43→21:29)
[2018-11-10] MEDS: INSULIN REG, HUMAN 100 UNIT/ML 3 ML VIAL (PYX) SUBCUT SCH ×4 (11:09→21:34)
[2018-11-10] MEDS: SUCRALFATE SUSP 1 GM/10 ML UDCUP PO SCH ×4 (11:09→21:34)
[2018-11-10] MEDS: DOCUSATE SODIUM 100 MG CAPSULE PO SCH ×2 (11:10→17:13)
[2018-11-10] MEDS: MAGNESIUM SULFATE/D5W 1 GM/100 ML RTUPB IV SCH ×3 (11:24→13:57)
[2018-11-10] MEDS: METOCLOPRAMIDE HCL 10 MG TABLET PO SCH ×4 (11:24→21:35)
[2018-11-10] MEDS: FAMOTIDINE 20 MG TABLET PO SCH ×3 (11:24→21:34)
[2018-11-10] MEDS: INSULIN GLARGINE,HUM.REC.ANLOG 300 UNIT/3 ML INSULN.PEN SUBCUT SCH (11:25)
[2018-11-10] MEDS: MAGNESIUM SULFATE 1 GM/D5W 100 ML IV SCH ×2 (13:33→13:57)
[2018-11-10] MEDS: ACETAMINOPHEN 325 MG TABLET PO PRN ×2 (13:57→21:36)
--- NOTE | 2018-11-10 14:07 | PDOC PROGRESS REPORT ---
Subjective Progress Note for:: 11/10/18 Subjective:: I saw the patient on dialysis this morning at around 9:00 AM. She is a little bit sleepy but arousable and communicative. She is tolerating dialysis except that he cannot get much ultrafiltration because her blood pressure goes down pretty fast so we have to do it slowly. She denies any shortness of breath nor chest pains. She did not make any significant amount of urine after the Lasix dose that they gave last night unfortunately. Yesterday she only made a total of 115 mL of urine after reinserted the Aleman catheter. So far today she only had 40 mL of urine in her Aleman bag. Reason For Visit: HYPERGLYCEMIA,HYPERKALEMIA Physical Exam Vital Signs: Temp Pulse Resp BP Pulse Ox 97.7 F 108 H 18 123/62 94 11/10/18 12:00 11/10/18 12:00 11/10/18 12:00 11/10/18 12:00 11/10/18 12:00 Intake & Output 11/09/18 11/10/18 11/11/18 06:59 06:59 06:59 Intake Total 4126 1650 100 Output Total 55 1440 Balance 4126 1595 -1340 Weight 113 kg 123.9 kg Vitals urinalysis: Blood pressure 117/56, heart rate of 111, blood flow rate of 250 mL/min, dialysate flow rate of 500 mm/min. Exam: General appearance: PRESENT: no acute distress, cooperative, well-developed, well-nourished, somnolent but arousable Head exam: PRESENT: atraumatic, normocephalic Eye exam: PRESENT: conjunctiva slightly pale, PERRLA. ABSENT: scleral icterus Neck exam: ABSENT: JVD Respiratory exam: PRESENT: Normal breath sounds. ABSENT: crackles, rales, rhonchi, unlabored, wheezes Cardiovascular exam: PRESENT: Regular rate rhythm -+S1, +S2. ABSENT: diastolic murmur, systolic murmur GI/Abdominal exam: PRESENT: normal bowel sounds, soft. ABSENT: guarding, mass, tenderness Extremities exam: Grade 2 bilateral lower extremity pitting edema Neurological exam: PRESENT: Somnolent as above, oriented to person, place and time. Skin exam: PRESENT: dry, warm, Results Laboratory Results: 11/10/18 04:31 11/10/18 04:31 11/10/18 11/10/18 04:31 04:31 WBC 17.0 H RBC 3.47 L Hgb 10.9 L Hct 32.5 L MCV 94 MCH 31.4 MCHC 33.5 RDW 13.4 Plt Count 85 L Seg Neutrophils % 78.8 H Lymphocytes % 12.2 L Monocytes % 6.7 Eosinophils % 1.6 Basophils % 0.7 Absolute Neutrophils 13.4 H Absolute Lymphocytes 2.1 Absolute Monocytes 1.1 Absolute Eosinophils 0.3 Absolute Basophils 0.1 Sodium 132.4 L Potassium 4.5 D Chloride 101 Carbon Dioxide 14 L Anion Gap 17 BUN 50 H Creatinine 4.04 H Est GFR ( Amer) 13 L Est GFR (Non-Af Amer) 11 L Glucose 315 H Calcium 7.9 L Magnesium 1.2 L* 11/07/18 11/07/18 11/08/18 18:00 20:33 04:10 Creatine Kinase 48 CK-MB (CK-2) Troponin I < 0.012 < 0.012 11/08/18 11/08/18 11/08/18 04:10 10:10 10:10 Creatine Kinase 54 CK-MB (CK-2) 0.81 0.93 Troponin I 0.018 0.023 11/08/18 11/08/18 16:15 16:15 Creatine Kinase 59 CK-MB (CK-2) 0.86 Troponin I 0.027 Impressions: Abdomen/Pelvis CT 11/07/18 22:18 IMPRESSION: 1. No acute intra-abdominal pathology. 2. Diverticulosis without inflammatory findings. 3. L4-L5 posterior spinal fusion with hardware grossly intact. 4. 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 Chest X-Ray 11/09/18 00:00 IMPRESSION: Right-sided dialysis catheter has been placed and is in good position. Renal Ultrasound 11/09/18 00:00 IMPRESSION: Small left renal cyst. The bladder is decompressed by Aleman catheter. No other significant findings. Assessment & Plan - Diagnosis (1) Acute kidney injury Is this a current diagnosis for this admission?: Yes Plan: Due to contrast-induced nephropathy leading to ATN. Currently still anuric. Patient requires renal replacement therapy. We did dialysis today for 2.5 hours, using the patient's right IJ trialysis catheter, with 2 potassium bath, blood flow rate of 250 mL per minute, dialysate flow rate of 500 mL per minute, ultrafiltration 1-2 L as tolerated but we ended up only getting about 1400 mL, no heparin and no Procrit. Patient was monitored throughout dialysis treatment and prescription adjusted accordingly especially the ultrafiltration in relation to her blood pressure. We will plan for next dialysis tomorrow. (2) Contrast dye induced nephropathy Is this a current diagnosis for this admission?: Yes (3) Hyperkalemia Is this a current diagnosis for this admission?: Yes Plan: Improved with Kayexalate yesterday but will probably be better with dialysis. (4) Metabolic acidosis Is this a current diagnosis for this admission?: Yes Plan: This will improve with dialysis. (5) Hypomagnesemia Is this a current diagnosis for this admission?: Yes Plan: Replace magnesium as ordered by the hospitalist service. (6) Hyponatremia Is this a current diagnosis for this admission?: Yes Plan: Mild due to hypervolemic state. (7) Generalized weakness Is this a current diagnosis for this admission?: Yes (8) Hyperglycemia due to type 2 diabetes mellitus Is this a current diagnosis for this admission?: Yes Plan: Likely to have mild DKA on admission. Discussed with Dr. Williamson. (9) Hypothyroidism Qualifiers: Hypothyroidism type: unspecified Qualified Code(s): E03.9 - Hypothyroidism, unspecified Is this a current diagnosis for this admission?: Yes (10) Morbid obesity with BMI of 40.0-44.9, adult Is this a current diagnosis for this admission?: Yes - Time Time with patient: 15-25 minutes
[2018-11-10] MEDS ORDERED: TUBERCULIN,PURIF.PROT.DERIV. 5 TU/0.1 ML TEST 1 ML VIAL ID ONE (15:00)
--- NOTE | 2018-11-10 15:26 | PDOC PROGRESS REPORT ---
Subjective Progress Note for:: 11/10/18 Subjective:: Patient was seen on dialysis. This was her first dialysis session today. She is feeling better and feels that she is improving. She still has decreased urine output. Reason For Visit: HYPERGLYCEMIA,HYPERKALEMIA Physical Exam Vital Signs: Temp Pulse Resp BP Pulse Ox 97.7 F 98 18 123/62 94 11/10/18 12:00 11/10/18 14:00 11/10/18 12:00 11/10/18 12:00 11/10/18 12:00 Intake & Output 11/09/18 11/10/18 11/11/18 06:59 06:59 06:59 Intake Total 4126 1650 200 Output Total 55 1440 Balance 4126 1595 -1240 Weight 249 lb 1.957 oz 273 lb 2.444 oz General appearance: PRESENT: no acute distress, cooperative Head exam: PRESENT: atraumatic, normocephalic Mouth exam: PRESENT: moist, neck supple Neck exam: ABSENT: meningismus, tenderness Respiratory exam: PRESENT: accessory muscle use, clear to auscultation heron Cardiovascular exam: PRESENT: RRR Pulses: PRESENT: normal radial pulses GI/Abdominal exam: PRESENT: normal bowel sounds, soft Rectal exam: PRESENT: deferred Neurological exam: PRESENT: alert, awake, oriented to person, oriented to place, oriented to time, oriented to situation Psychiatric exam: ABSENT: agitated, anxious Results Laboratory Results: 11/10/18 04:31 11/10/18 04:31 11/10/18 11/10/18 04:31 04:31 WBC 17.0 H RBC 3.47 L Hgb 10.9 L Hct 32.5 L MCV 94 MCH 31.4 MCHC 33.5 RDW 13.4 Plt Count 85 L Seg Neutrophils % 78.8 H Lymphocytes % 12.2 L Monocytes % 6.7 Eosinophils % 1.6 Basophils % 0.7 Absolute Neutrophils 13.4 H Absolute Lymphocytes 2.1 Absolute Monocytes 1.1 Absolute Eosinophils 0.3 Absolute Basophils 0.1 Sodium 132.4 L Potassium 4.5 D Chloride 101 Carbon Dioxide 14 L Anion Gap 17 BUN 50 H Creatinine 4.04 H Est GFR ( Amer) 13 L Est GFR (Non-Af Amer) 11 L Glucose 315 H Calcium 7.9 L Magnesium 1.2 L* 11/07/18 11/07/1811/08/19 18:00 20:33 04:10 Creatine Kinase 48 CK-MB (CK-2) Troponin I < 0.012 < 0.012 11/08/18 11/08/18 11/08/18 04:10 10:10 10:10 Creatine Kinase 54 CK-MB (CK-2) 0.81 0.93 Troponin I 0.018 0.023 11/08/18 11/08/18 16:15 16:15 Creatine Kinase 59 CK-MB (CK-2) 0.86 Troponin I 0.027 Impressions: Abdomen/Pelvis CT 11/07/18 22:18 IMPRESSION: 1. No acute intra-abdominal pathology. 2. Diverticulosis without inflammatory findings. 3. L4-L5 posterior spinal fusion with hardware grossly intact. 4. 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 Chest X-Ray 11/09/18 00:00 IMPRESSION: Right-sided dialysis catheter has been placed and is in good position. Renal Ultrasound 11/09/18 00:00 IMPRESSION: Small left renal cyst. The bladder is decompressed by Aleman catheter. No other significant findings. Assessment & Plan - Diagnosis (1) Acute renal failure Is this a current diagnosis for this admission?: Yes Plan: Fractional excretion of sodium is 0.04% Diagnostic impression is contrast-induced nephrotoxicity per nephrology Received her first hemodialysis session today. (2) Hyperglycemia due to type 2 diabetes mellitus Is this a current diagnosis for this admission?: Yes Plan: Continue insulin coverage. Monitor glucose levels (3) Hyperkalemia Is this a current diagnosis for this admission?: Yes Plan: Improved. Received dialysis today. (4) Hypothyroidism Qualifiers: Hypothyroidism type: unspecified Qualified Code(s): E03.9 - Hypothyroidism, unspecified Is this a current diagnosis for this admission?: Yes Plan: TSH is normal. (5) Morbid obesity with BMI of 40.0-44.9, adult Is this a current diagnosis for this admission?: Yes Plan: Recommend lifestyle modifications
[2018-11-11] MEDS ORDERED: NORMAL SALINE 1000 ML 1,000 ML IV PRN (05:00)
[2018-11-11] MEDS: HEPARIN SOD (PORCINE) 5,000 UNIT/ML 1 ML SYRINGE SUBCUT SCH ×3 (05:10→21:27)
[2018-11-11 06:15] LABS: ARTERIAL BLOOD BASE EXCESS -4.4 mmol/L; ARTERIAL BLOOD FIO2 21%; ARTERIAL BLOOD HCO3 19.2 mmol/L (20-24); ARTERIAL BLOOD O2 SATURATION 95.7 % (94-98); ARTERIAL BLOOD PH 7.42 (7.35-7.45); ARTERIAL BLOOD PO2 76.3 mmHg (80-100); ARTERIAL BLOOD TOTAL CO2 20.1 mmol/L (21-25)
[2018-11-11] MEDS: INSULIN REG, HUMAN 100 UNIT/ML 3 ML VIAL (PYX) SUBCUT SCH ×5 (07:00→21:30)
[2018-11-11 07:41] LABS: HEPATITIS A AB IGM Negative (Negative); HEPATITIS B CORE AB IGM Negative (Negative); HEPATITS B SURFACE ANTIGEN Negative (Negative)
[2018-11-11 08:41] LABS: COMPLEMENT C4 39 mg/dL (14-44)
[2018-11-11 09:58] LABS: COMPLEMENT C3 175 mg/dL (82-167); COMPLEMENT TOTAL (CH50) >60 U/mL (>41); HEPATITIS C VIRUS ANTIBODY <0.1 s/co ratio (0.0-0.9)
[2018-11-11] MEDS ORDERED: INSULIN GLARGINE,HUM.REC.ANLOG 300 UNIT/3 ML INSULN.PEN SUBCUT SCH (10:00)
[2018-11-11] MEDS ORDERED: INSULIN GLARGINE,HUM.REC.ANLOG 1,000 UNIT/10 ML UNIT SUBCUT SCH (10:00)
[2018-11-11 10:15] LABS: ABSOLUTE EOSINOPHILS # (AUTO) 0.4 10^3/uL (0.0-0.6); ABSOLUTE LYMPHOCYTES (AUTO) 1.7 10^3/uL (0.5-4.7); ABSOLUTE MONOCYTES (AUTO) 0.8 10^3/uL (0.1-1.4); ABSOLUTE NEUT (AUTO) 10.2 10^3/uL (1.7-8.2); BASOPHILS % (AUTO) 0.2 % (0-2); EOSINOPHILS % (AUTO) 3.2 % (0-6); HEMATOCRIT 30.1 % (36.0-47.0); HEMOGLOBIN 10.2 g/dL (12.0-15.5); LYMPHOCYTES % (AUTO) 12.6 % (13-45); MEAN CORPUSCULAR HEMOGLOBIN 31.4 pg (27.0-33.4); MEAN CORPUSCULAR HGB CONC 33.9 g/dL (32.0-36.0); MEAN CORPUSCULAR VOLUME 93 fl (80-97); MONOCYTES % (AUTO) 6.3 % (3-13); RED BLOOD COUNT 3.25 10^6/uL (3.72-5.28); RED CELL DISTRIBUTION WIDTH 13.5 % (11.5-14.0); SEGMENTED NEUTROPHILS % (AUTO) 77.7 % (42-78); TOTAL CELLS COUNTED % (AUTO) 100 %; WHITE BLOOD COUNT 13.2 10^3/uL (4.0-10.5)
[2018-11-11 10:30] LABS: ALANINE AMINOTRANSFERASE 14 U/L (9-52); ALBUMIN 3.8 g/dL (3.5-5.0); ALKALINE PHOSPHATASE 92 U/L (38-126); ANION GAP 17 (5-19); ASPARTATE AMINO TRANSFERASE 19 U/L (14-36); BILIRUBIN,DIRECT 0.3 mg/dL (0.0-0.4); BILIRUBIN,TOTAL 0.6 mg/dL (0.2-1.3); BLOOD UREA NITROGEN 56 mg/dL (7-20); CALCIUM 7.8 mg/dL (8.4-10.2); CARBON DIOXIDE 21 mmol/L (22-30); CHLORIDE 94 mmol/L (98-107); GLUCOSE 277 mg/dL (75-110); POTASSIUM 3.5 mmol/L (3.6-5.0); SODIUM 131.7 mmol/L (137-145); TOTAL PROTEIN 6.4 g/dL (6.3-8.2)
[2018-11-11 11:15] LABS: PLATELET COUNT 71 10^3/uL (150-450)
[2018-11-11] MEDS: SUCRALFATE SUSP 1 GM/10 ML UDCUP PO SCH ×4 (11:24→21:30)
[2018-11-11] MEDS: METOCLOPRAMIDE HCL 10 MG TABLET PO SCH ×4 (11:25→21:30)
[2018-11-11] MEDS: FAMOTIDINE 20 MG TABLET PO SCH ×2 (11:26→21:30)
[2018-11-11] MEDS: DOCUSATE SODIUM 100 MG CAPSULE PO SCH ×2 (11:27→19:05)
[2018-11-11] MEDS: NALBUPHINE HCL INJ 10 MG/1 ML AMPULE IV PRN (11:35)
[2018-11-11 12:38] LABS: ANTICHROMATIN AB <0.2 AI (0.0-0.9); CENTROMERE B AB >8.0 AI (0.0-0.9); JO-1 ANTIBODY (ANACOMP) <0.2 AI (0.0-0.9); SJOGREN'S ANTI-SS-B AB <0.2 AI (0.0-0.9); SJOGREN'S SS-A ANTIBODY <0.2 AI (0.0-0.9)
[2018-11-11 12:53] LABS: DNA DOUBLE STRAND ANTIBODY ANA 1 IU/mL (0-9)
--- NOTE | 2018-11-11 17:37 | PDOC PROGRESS REPORT ---
Subjective Progress Note for:: 11/11/18 Subjective:: Patient was seen and examined. She had her first dialysis yesterday. She is doing better today. Her potassium is actually low today. Her creatinine slightly improved to 3.96. She has Raynaud's disease with chronic discoloration of her toes bilaterally. 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 Reason For Visit: HYPERGLYCEMIA,HYPERKALEMIA Physical Exam Vital Signs: Temp Pulse Resp BP Pulse Ox 97.9 F 91 16 144/60 H 94 11/11/18 10:46 11/11/18 10:46 11/11/18 10:46 11/11/18 10:46 11/11/18 10:46 Intake & Output 11/10/18 11/11/18 11/12/18 06:59 06:59 06:59 Intake Total 1650 450 Output Total 55 1590 75 Balance 1595 -1140 -75 Weight 273 lb 2.444 oz 274 lb 4.081 oz General appearance: PRESENT: no acute distress, cooperative, obese Head exam: PRESENT: atraumatic, normocephalic Ear exam: ABSENT: bleeding, drainage Mouth exam: PRESENT: moist, neck supple Neck exam: ABSENT: meningismus, tenderness Respiratory exam: PRESENT: clear to auscultation heron. ABSENT: accessory muscle use Cardiovascular exam: PRESENT: RRR Pulses: PRESENT: normal radial pulses GI/Abdominal exam: PRESENT: normal bowel sounds, soft Rectal exam: PRESENT: deferred Neurological exam: PRESENT: alert, awake, oriented to person, oriented to place, oriented to time, oriented to situation Psychiatric exam: ABSENT: agitated, anxious Skin exam: PRESENT: other - Chronic bluish discoloration of her toes Results Laboratory Results: 11/11/18 10:00 11/11/18 10:00 11/11/18 11/11/18 11/11/18 06:05 10:00 10:00 WBC 13.2 H RBC 3.25 L Hgb 10.2 L Hct 30.1 L MCV 93 MCH 31.4 MCHC 33.9 RDW 13.5 Plt Count 71 L Seg Neutrophils % 77.7 Lymphocytes % 12.6 L Monocytes % 6.3 Eosinophils % 3.2 Basophils % 0.2 Absolute Neutrophils 10.2 H Absolute Lymphocytes 1.7 Absolute Monocytes 0.8 Absolute Eosinophils 0.4 Absolute Basophils 0.0 Carbonic Acid 0.90 L HCO3/H2CO3 Ratio 21:1 ABG pH 7.42 ABG pCO2 30.0 L ABG pO2 76.3 L ABG HCO3 19.2 L ABG O2 Saturation 95.7 ABG Base Excess -4.4 FiO2 21% Sodium 131.7 L Potassium 3.5 L Chloride 94 L Carbon Dioxide 21 L Anion Gap 17 BUN 56 H Creatinine 3.96 H Est GFR ( Amer) 13 L Est GFR (Non-Af Amer) 11 L Glucose 277 H Calcium 7.8 L Magnesium 2.0 Total Bilirubin 0.6 AST 19 ALT 14 Alkaline Phosphatase 92 Total Protein 6.4 Albumin 3.8 11/09/18 14:02 Aleman Catheter Urine Culture - Final NO GROWTH 2 DAYS 11/07/18 11/07/18 11/08/18 18:00 20:33 04:10 Creatine Kinase 48 CK-MB (CK-2) Troponin I < 0.012 < 0.012 11/08/18 11/08/18 11/08/18 04:10 10:10 10:10 Creatine Kinase 54 CK-MB (CK-2) 0.81 0.93 Troponin I 0.018 0.023 11/08/18 11/08/18 16:15 16:15 Creatine Kinase 59 CK-MB (CK-2) 0.86 Troponin I 0.027 Impressions: Abdomen/Pelvis CT 11/07/18 22:18 IMPRESSION: 1. No acute intra-abdominal pathology. 2. Diverticulosis without inflammatory findings. 3. L4-L5 posterior spinal fusion with hardware grossly intact. 4. 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 Chest X-Ray 11/09/18 00:00 IMPRESSION: Right-sided dialysis catheter has been placed and is in good position. Renal Ultrasound 11/09/18 00:00 IMPRESSION: Small left renal cyst. The bladder is decompressed by Aleman catheter. No other significant findings. Assessment & Plan - Diagnosis (1) Acute renal failure Is this a current diagnosis for this admission?: Yes Plan: Fractional excretion of sodium is 0.04% Diagnostic impression is contrast-induced nephrotoxicity per nephrology Received her first hemodialysis session yesterday. Anticentromere antibody is positive. Patient known to have Raynaud's disease Nephrology is following (2) Hyperglycemia due to type 2 diabetes mellitus Is this a current diagnosis for this admission?: Yes Plan: Continue insulin coverage. Monitor glucose levels (3) Hyperkalemia Is this a current diagnosis for this admission?: Yes Plan: Resolved. She actually hypokalemic today. (4) Hypothyroidism Qualifiers: Hypothyroidism type: unspecified Qualified Code(s): E03.9 - Hypothyroidism, unspecified Is this a current diagnosis for this admission?: Yes Plan: TSH is normal. (5) Morbid obesity with BMI of 40.0-44.9, adult Is this a current diagnosis for this admission?: Yes Plan: Recommend lifestyle modifications
--- NOTE | 2018-11-11 18:23 | PDOC PROGRESS REPORT ---
Subjective Progress Note for:: 11/11/18 Subjective:: I saw the patient during dialysis this afternoon. She said she is feeling fine and does not really have any complaint except for hip pain. She has an SI joint on the right and she has hip replacement on the left. She was given a dose of Nubain but it made her sleepy. Her blood pressure is somewhat elevated today. She was tolerating dialysis when I saw her. No issues during dialysis. Reason For Visit: HYPERGLYCEMIA,HYPERKALEMIA Physical Exam Vital Signs: Temp Pulse Resp BP Pulse Ox 97.9 F 91 16 144/60 H 94 11/11/18 10:46 11/11/18 10:46 11/11/18 10:46 11/11/18 10:46 11/11/18 10:46 Intake & Output 11/10/18 11/11/18 11/12/18 06:59 06:59 06:59 Intake Total 1650 450 Output Total 55 1590 225 Balance 1595 -1140 -225 Weight 123.9 kg 124.4 kg Vitals during dialysis: Blood pressure of 181/83, heart rate of 93, blood flow rate of 250 mL/min, dialysate flow rate of 500 mL/min. Exam: General appearance: PRESENT: no acute distress, cooperative, well-developed, well-nourished Head exam: PRESENT: atraumatic, normocephalic Eye exam: PRESENT: conjunctiva slightly pale, PERRLA. ABSENT: scleral icterus Neck exam: ABSENT: JVD Respiratory exam: PRESENT: Diminished breath sounds. ABSENT: crackles, rales, rhonchi, unlabored, wheezes Cardiovascular exam: PRESENT: Regular rate rhythm -+S1, +S2. ABSENT: diastolic murmur, systolic murmur GI/Abdominal exam: PRESENT: normal bowel sounds, soft. ABSENT: guarding, mass, tenderness Extremities exam: Grade 2 bilateral lower extremity pitting edema Neurological exam: PRESENT: Somnolent, awake, oriented to person, place and time. Skin exam: PRESENT: dry, warm, she has cyanotic toes on both feet which she said was chronic. Results Laboratory Results: 11/11/18 10:00 11/11/18 10:00 11/11/18 11/11/18 11/11/18 06:05 10:00 10:00 WBC 13.2 H RBC 3.25 L Hgb 10.2 L Hct 30.1 L MCV 93 MCH 31.4 MCHC 33.9 RDW 13.5 Plt Count 71 L Seg Neutrophils % 77.7 Lymphocytes % 12.6 L Monocytes % 6.3 Eosinophils % 3.2 Basophils % 0.2 Absolute Neutrophils 10.2 H Absolute Lymphocytes 1.7 Absolute Monocytes 0.8 Absolute Eosinophils 0.4 Absolute Basophils 0.0 Carbonic Acid 0.90 L HCO3/H2CO3 Ratio 21:1 ABG pH 7.42 ABG pCO2 30.0 L ABG pO2 76.3 L ABG HCO3 19.2 L ABG O2 Saturation 95.7 ABG Base Excess -4.4 FiO2 21% Sodium 131.7 L Potassium 3.5 L Chloride 94 L Carbon Dioxide 21 L Anion Gap 17 BUN 56 H Creatinine 3.96 H Est GFR ( Amer) 13 L Est GFR (Non-Af Amer) 11 L Glucose 277 H Calcium 7.8 L Magnesium 2.0 Total Bilirubin 0.6 AST 19 ALT 14 Alkaline Phosphatase 92 Total Protein 6.4 Albumin 3.8 11/09/18 14:02 Aleman Catheter Urine Culture - Final NO GROWTH 2 DAYS 11/07/18 11/07/18 11/08/18 18:00 20:33 04:10 Creatine Kinase 48 CK-MB (CK-2) Troponin I < 0.012 < 0.012 11/08/18 11/08/18 11/08/18 04:10 10:10 10:10 Creatine Kinase 54 CK-MB (CK-2) 0.81 0.93 Troponin I 0.018 0.023 11/08/18 11/08/18 16:15 16:15 Creatine Kinase 59 CK-MB (CK-2) 0.86 Troponin I 0.027 Impressions: Abdomen/Pelvis CT 11/07/18 22:18 IMPRESSION: 1. No acute intra-abdominal pathology. 2. Diverticulosis without inflammatory findings. 3. L4-L5 posterior spinal fusion with hardware grossly intact. 4. 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 Chest X-Ray 11/09/18 00:00 IMPRESSION: Right-sided dialysis catheter has been placed and is in good position. Renal Ultrasound 11/09/18 00:00 IMPRESSION: Small left renal cyst. The bladder is decompressed by Aleman catheter. No other significant findings. Assessment & Plan - Diagnosis (1) Acute kidney injury Is this a current diagnosis for this admission?: Yes Plan: Patient remains to be oligo anuric although her urine output is very slowly improving. She still requires renal replacement therapy. We will do dialysis today for 2.5 hours, using the patient's right IJ trialysis catheter, with 2 potassium bath subsequently changed to 3K, blood flow rate of 250 mL per minute, dialysate flow rate of 500 mL per minute, ultrafiltration 1-2 L as tolerated, no heparin and no Procrit. Patient tolerated tolerated dialysis without any problems. (2) Contrast dye induced nephropathy Is this a current diagnosis for this admission?: Yes (3) Hyperkalemia Is this a current diagnosis for this admission?: Yes Plan: Resolved. Currently the patient is actually hypokalemic. Since we changed p otassium bath on dialysis a little bit late I will give her a dose of 20 mEq of potassium chloride orally. (4) Metabolic acidosis Is this a current diagnosis for this admission?: Yes Plan: Improved with dialysis. (5) Hypomagnesemia Is this a current diagnosis for this admission?: Yes Plan: Resolved. (6) Hyponatremia Is this a current diagnosis for this admission?: Yes Plan: Mild due to hypervolemic state. (7) Generalized weakness Is this a current diagnosis for this admission?: Yes (8) Hyperglycemia due to type 2 diabetes mellitus Is this a current diagnosis for this admission?: Yes Plan: Likely to have mild DKA on admission. Discussed with Dr. Williamson. (9) Hypocalcemia Is this a current diagnosis for this admission?: Yes Plan: Start oyster Shell calcium 500 mg p.o. twice daily. (10) Chronic SI joint pain Is this a current diagnosis for this admission?: Yes Plan: May give tramadol 50 mg every 6 as needed. (11) Hypothyroidism Qualifiers: Hypothyroidism type: unspecified Qualified Code(s): E03.9 - Hypothyroidism, unspecified Is this a current diagnosis for this admission?: Yes (12) Morbid obesity with BMI of 40.0-44.9, adult Is this a current diagnosis for this admission?: Yes - Time Time with patient: 15-25 minutes
[2018-11-11] MEDS ORDERED: POTASSIUM CHLORIDE 10 MEQ CAPSULE.ER PO ONE (19:00)
[2018-11-11] MEDS: CALCIUM CARBONATE 500 MG TABLET PO SCH (19:09)
[2018-11-11] MEDS: INSULIN DETEMIR 100 UNIT/ML 3 ML PEN SUBCUT SCH (21:31)
[2018-11-12 04:18] LABS: HEMOGLOBIN 9.2 g/dL (12.0-15.5); MEAN CORPUSCULAR HEMOGLOBIN 31.5 pg (27.0-33.4); MEAN CORPUSCULAR HGB CONC 34.2 g/dL (32.0-36.0); MEAN CORPUSCULAR VOLUME 92 fl (80-97); RED BLOOD COUNT 2.93 10^6/uL (3.72-5.28); RED CELL DISTRIBUTION WIDTH 13.4 % (11.5-14.0)
[2018-11-12 04:33] LABS: ANION GAP 14 (5-19); BLOOD UREA NITROGEN 47 mg/dL (7-20); CALCIUM 7.9 mg/dL (8.4-10.2); CARBON DIOXIDE 25 mmol/L (22-30); CHLORIDE 92 mmol/L (98-107); GLUCOSE 222 mg/dL (75-110); PHOSPHORUS 5.9 mg/dL (2.5-4.5); PLATELET COUNT 81 10^3/uL (150-450); POTASSIUM 3.2 mmol/L (3.6-5.0); SODIUM 130.6 mmol/L (137-145)
[2018-11-12] MEDS: HEPARIN SOD (PORCINE) 5,000 UNIT/ML 1 ML SYRINGE SUBCUT SCH ×3 (05:07→21:10)
--- NOTE | 2018-11-12 07:08 | PDOC CONSULTATION ---
Consultation Consult Date: 11/12/18 Consult reason:: Right hip pain History of Present Illness Admission Date/PCP: 11/08/18 00:33 History of Present Illness: ZAID DONALDSON is a 73 year old female The patient is a 73-year-old white female with very located past medical history and list comorbidities that include dialysis, obesity, and adult-onset diabetes. She is status post a left hip arthroplasty in [place] 2 years ago without complication. She is now admitted for medical reasons but is complaining of right hip pain since this past summer while vacuuming her house. 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 The patient has been seen by physical therapy and a chiropractor without any significant benefit. Past Medical History Cardiac Medical History: Denies: Atrial Fibrillation, Coronary Artery Disease, DVT, Hyperlipidema, Hypertension, Pulmonary Embolism Pulmonary Medical History: Denies: Asthma, Chronic Obstructive Pulmonary Disease (COPD) EENT Medical History: Reports: Other - Bad teeth Denies: Cataracts Neurological Medical History: Denies: Multiple Sclerosis, Seizures Endocrine Medical History: Reports: Diabetes Mellitus Type 2, Hypothyroidism, Obesity Denies: Diabetes Mellitus Type 1, Hyperthyroidism Renal/ Medical History: Denies: Chronic Kidney Disease, Nephrolithiasis Malignancy Medical History: Reports: None GI Medical History: Denies: Cirrhosis, Hepatitis Musculoskeltal Medical History: Reports: Arthritis, Other - Recent right hip pain Denies: Fibromyalgia, Gout Skin Medical History: Denies: Eczema, Psoriasis Psychiatric Medical History: Reports: Depression Denies: Alcohol Dependency, Substance Abuse, Tobacco Dependency Traumatic Medical History: Reports: None Hematology: Reports: Other - Bad teeth Denies: Anemia, Bleeding Tendencies Infectious Medical History: Reports: None Past Surgical History Past Surgical History: Reports: Appendectomy, Hip Replacement, Orthopedic Surgery - Left hip replacement in [place] in 2016, back surgeries, Thyroidectomy, Other - Oophorectomy Social History Information Source: Patient, [facility] Records Lives with: Spouse/Significant other Smoking Status: Former Smoker Frequency of Alcohol Use: Occasional Hx Recreational Drug Use: Yes Drugs: None Hx Prescription Drug Abuse: No - Advance Directive Resuscitation Status: Full Code Family History Family History: Arthritis, DM, Thyroid Disfunction Parental Family History Reviewed: No Children Family History Reviewed: No Sibling(s) Family History Reviewed.: No Medication/Allergy Home Medications: Aspirin [Ecotrin 81 mg EC Tablet] 81 mg PO DAILY 11/08/18 Diclofenac Sodium [Voltaren 50 Mg Tablet.Dr] 50 mg PO Q8HP PRN 11/08/18 Duloxetine HCl [Cymbalta] 60 mg PO DAILY 11/08/18 Glimepiride [Amaryl 4 mg Tablet] 4 mg PO DAILY 11/08/18 Krill/Om-3/Dha/Epa/Phospho/Ast [Megared [place]-3 Krill Oil Sfgl] 1 each PO DAILY 11/08/18 Lutein/Zeaxanthin [Lutein-Zeaxanthin 25-5 mg Sfgl] 1 each PO DAILY 11/08/18 Methocarbamol [Robaxin 500 mg Tablet] 500 mg PO Q12HP PRN 11/08/18 Omeprazole 20 mg PO DAILY 11/08/18 Ubidecarenone/Vit E Acet [Co Q-10 100 mg Softgel] 1 each PO DAILY 11/08/18 Allergies/Adverse Reactions: propoxyphene [From Darvocet-N] Allergy (Verified 11/07/18 18:11) warfarin Allergy (Verified 11/07/18 18:11) Penicillins Adverse Reaction (Verified 11/07/18 18:11) Review of Systems All systems: as per PMH Physical Exam Vital Signs: Temp Pulse Resp BP Pulse Ox 36.8 C 90 14 145/59 H 96 11/12/18 03:13 11/12/18 03:13 11/12/18 03:13 11/12/18 03:13 11/12/18 03:13 Intake & Output 11/11/18 11/12/18 11/13/18 06:59 06:59 06:59 Intake Total 450 537 Output Total 1590 2455 Balance -1140 -1918 Weight 124.4 kg 127.9 kg Physical Exam: The patient is an obese middle-aged white female lying in hospital bed. She does not appear uncomfortable. She is alert, oriented, and appropriate. She is gives a coherent medical history. General appearance: PRESENT: no acute distress, obese Head exam: PRESENT: normocephalic Respiratory exam: PRESENT: unlabored Cardiovascular exam: PRESENT: RRR Pulses: PRESENT: +1 pedal pulses bilateral Vascular exam: PRESENT: normal capillary refill GI/Abdominal exam: PRESENT: soft Rectal exam: PRESENT: deferred Extremities exam: PRESENT: other - Passive range of motion of the right hip is painful. Leg lengths are equal. Distal neurovascular examination is intact. Neurological exam: PRESENT: alert, awake, oriented to person, oriented to place, oriented to time, oriented to situation. ABSENT: motor sensory deficit Psychiatric exam: PRESENT: appropriate affect, normal mood. ABSENT: homicidal ideation, suicidal ideation Skin exam: PRESENT: dry, intact, warm. ABSENT: cyanosis, rash Results Laboratory Results: 11/12/18 04:00 11/12/18 04:00 11/11/18 11/11/18 11/12/18 10:00 10:00 04:00 WBC 13.2 H 14.0 H RBC 3.25 L 2.93 L Hgb 10.2 L 9.2 L Hct 30.1 L 27.0 L MCV 93 92 MCH 31.4 31.5 MCHC 33.9 34.2 RDW 13.5 13.4 Plt Count 71 L 81 L Seg Neutrophils % 77.7 Lymphocytes % 12.6 L Monocytes % 6.3 Eosinophils % 3.2 Basophils % 0.2 Absolute Neutrophils 10.2 H Absolute Lymphocytes 1.7 Absolute Monocytes 0.8 Absolute Eosinophils 0.4 Absolute Basophils 0.0 Sodium 131.7 L Potassium 3.5 L Chloride 94 L Carbon Dioxide 21 L Anion Gap 17 BUN 56 H Creatinine 3.96 H Est GFR ( Amer) 13 L Est GFR (Non-Af Amer) 11 L Glucose 277 H Calcium 7.8 L Phosphorus Magnesium 2.0 Total Bilirubin 0.6 AST 19 ALT 14 Alkaline Phosphatase 92 Total Protein 6.4 Albumin 3.8 11/12/18 04:00 WBC RBC Hgb Hct MCV MCH MCHC RDW Plt Count Seg Neutrophils % Lymphocytes % Monocytes % Eosinophils % Basophils % Absolute Neutrophils Absolute Lymphocytes Absolute Monocytes Absolute Eosinophils Absolute Basophils Sodium 130.6 L Potassium 3.2 L Chloride 92 L Carbon Dioxide 25 Anion Gap 14 BUN 47 H Creatinine 2.95 H Est GFR ( Amer) 19 L Est GFR (Non-Af Amer) 16 L Glucose 222 H Calcium 7.9 L Phosphorus 5.9 H Magnesium 1.9 Total Bilirubin AST ALT Alkaline Phosphatase Total Protein Albumin 11/09/18 14:02 Aleman Catheter Urine Culture - Final NO GROWTH 2 DAYS 11/07/18 11/07/18 11/08/18 18:00 20:33 04:10 Creatine Kinase 48 CK-MB (CK-2) Troponin I < 0.012 < 0.012 11/08/18 11/08/18 11/08/18 04:10 10:10 10:10 Creatine Kinase 54 CK-MB (CK-2) 0.81 0.93 Troponin I 0.018 0.023 11/08/18 11/08/18 16:15 16:15 Creatine Kinase 59 CK-MB (CK-2) 0.86 Troponin I 0.027 Impressions: Abdomen/Pelvis CT 11/07/18 22:18 IMPRESSION: 1. No acute intra-abdominal pathology. 2. Diverticulosis without inflammatory findings. 3. L4-L5 posterior spinal fusion with hardware grossly intact. 4. 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 Chest X-Ray 11/09/18 00:00 IMPRESSION: Right-sided dialysis catheter has been placed and is in good position. Renal Ultrasound 11/09/18 00:00 IMPRESSION: Small left renal cyst. The bladder is decompressed by Aleman catheter. No other significant findings. Status: Imported from PACS Assessment & Plan - Diagnosis (1) Avascular necrosis Is this a current diagnosis for this admission?: Yes Plan: 73-year-old female status post left hip arthroplasty present with for avascular necrosis 2 years ago in [place] now with progressive right hip pain and ev idence of avascular necrosis on CT scan. At this point the patient is not a surgical candidate because of her comorbidities. I do think eventually a total hip arthroplasty would be beneficial for the patient. In the interim I think physical therapy may be beneficial. The patient is not going to be candidate for anti-inflammatory medication because of her renal compromise. - Time Time Spent: 50 to 70 Minutes Anticipated discharge: Other Within: Other
[2018-11-12] MEDS: INSULIN REG, HUMAN 100 UNIT/ML 3 ML VIAL (PYX) SUBCUT SCH ×4 (08:10→22:02)
[2018-11-12] MEDS: SUCRALFATE SUSP 1 GM/10 ML UDCUP PO SCH ×4 (08:14→21:04)
[2018-11-12] MEDS: METOCLOPRAMIDE HCL 10 MG TABLET PO SCH ×4 (08:14→21:04)
[2018-11-12] MEDS: TRAMADOL HCL 50 MG TABLET PO PRN (08:28)
[2018-11-12] MEDS: DOCUSATE SODIUM 100 MG CAPSULE PO SCH ×2 (09:49→17:43)
[2018-11-12] MEDS: FAMOTIDINE 20 MG TABLET PO SCH ×2 (09:49→21:04)
[2018-11-12] MEDS: CALCIUM CARBONATE 500 MG TABLET PO SCH ×2 (09:49→17:43)
[2018-11-12] MEDS: INSULIN DETEMIR 100 UNIT/ML 3 ML PEN SUBCUT SCH ×2 (09:50→22:03)
--- NOTE | 2018-11-12 12:11 | PDOC PROGRESS REPORT ---
Subjective Progress Note for:: 11/12/18 Subjective:: Patient was seen and examined. She had her first dialysis 11/10/2018. Creatinine improved to 2.95 today. She was seen by orthopedic surgery and recommend hip replacement outpatient when she is more stable. Reason For Visit: HYPERGLYCEMIA,HYPERKALEMIA Physical Exam Vital Signs: Temp Pulse Resp BP Pulse Ox 98.0 F 90 16 141/57 H 100 11/12/18 10:55 11/12/18 10:55 11/12/18 10:55 11/12/18 10:55 11/12/18 10:55 Intake & Output 11/11/18 11/12/18 11/13/18 06:59 06:59 06:59 Intake Total 450 537 Output Total 1590 2455 Balance -1140 -1918 Weight 274 lb 4.081 oz 281 lb 15.539 oz General appearance: PRESENT: no acute distress, cooperative, obese Head exam: PRESENT: atraumatic, normocephalic Eye exam: PRESENT: EOMI, PERRLA. ABSENT: conjunctival injection Mouth exam: PRESENT: moist, neck supple Neck exam: ABSENT: meningismus, tenderness Respiratory exam: PRESENT: clear to auscultation heron. ABSENT: accessory muscle use Cardiovascular exam: PRESENT: RRR Pulses: PRESENT: normal radial pulses, +2 pedal pulses bilateral GI/Abdominal exam: PRESENT: normal bowel sounds, soft Rectal exam: PRESENT: deferred Neurological exam: PRESENT: alert, awake, oriented to person, oriented to place, oriented to time, oriented to situation Results Laboratory Results: 11/12/18 04:00 11/12/18 04:00 11/12/18 11/12/18 04:00 04:00 WBC 14.0 H RBC 2.93 L Hgb 9.2 L Hct 27.0 L MCV 92 MCH 31.5 MCHC 34.2 RDW 13.4 Plt Count 81 L Sodium 130.6 L Potassium 3.2 L Chloride 92 L Carbon Dioxide 25 Anion Gap 14 BUN 47 H Creatinine 2.95 H Est GFR ( Amer) 19 L Est GFR (Non-Af Amer) 16 L Glucose 222 H Calcium 7.9 L Phosphorus 5.9 H Magnesium 1.9 11/09/18 14:02 Aleman Catheter Urine Culture - Final NO GROWTH 2 DAYS 11/07/18 11/07/18 11/08/18 18:00 20:33 04:10 Creatine Kinase 48 CK-MB (CK-2) Troponin I < 0.012 < 0.012 11/08/18 11/08/18 11/08/18 04:10 10:10 10:10 Creatine Kinase 54 CK-MB (CK-2) 0.81 0.93 Troponin I 0.018 0.023 11/08/18 11/08/18 16:15 16:15 Creatine Kinase 59 CK-MB (CK-2) 0.86 Troponin I 0.027 Impressions: Abdomen/Pelvis CT 11/07/18 22:18 IMPRESSION: 1. No acute intra-abdominal pathology. 2. Diverticulosis without inflammatory findings. 3. L4-L5 posterior spinal fusion with hardware grossly intact. 4. 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 Chest X-Ray 11/09/18 00:00 IMPRESSION: Right-sided dialysis catheter has been placed and is in good position. Renal Ultrasound 11/09/18 00:00 IMPRESSION: Small left renal cyst. The bladder is decompressed by Aleman catheter. No other significant findings. Assessment & Plan - Diagnosis (1) Acute renal failure Is this a current diagnosis for this admission?: Yes Plan: Fractional excretion of sodium is 0.04% Diagnostic impression is contrast-induced nephrotoxicity per nephrology Received her first hemodialysis session 11/10/2018. Anticentromere antibody is positive. Patient known to have Raynaud's disease Nephrology is following (2) Hyperglycemia due to type 2 diabetes mellitus Is this a current diagnosis for this admission?: Yes Plan: Insulin dose adjusted. Monitor glucose levels (3) Hyperkalemia Is this a current diagnosis for this admission?: Yes Plan: Resolved. She actually hypokalemic today. Defer to nephrology. Monitor potassium levels. (4) Hypothyroidism Qualifiers: Hypothyroidism type: unspecified Qualified Code(s): E03.9 - Hypothyroidism, unspecified Is this a current diagnosis for this admission?: Yes Plan: TSH is normal. (5) Morbid obesity with BMI of 40.0-44.9, adult Is this a current diagnosis for this admission?: Yes Plan: Recommend lifestyle modifications (6) Toe cyanosis Is this a current diagnosis for this admission?: Yes Plan: Patient has Raynaud's disease and has good pulsations. But toes are a lot darker than usual and started demarcate. Arterial ultrasound of the lower extremities is pending. Vascular surgery consult placed.
--- NOTE | 2018-11-12 18:15 | XCELERA REPORT ---
[address] [address] Lower Extremity Arterial Evaluation Name: ZAID DONALDSON Age: 73 yrs Gender: Female : 1945 Patient Status: Inpatient Patient Location: ^[facility]^A Study Date: 11/10/2018 05:30 PM Procedure: A color flow and duplex scan of the lower extremity arteries was performed bilaterally with velocity and waveform anaylsis. Reason For Study: pain/discoloration Ordering Physician: VERONIQUE^Susy^^MD Performed By: Raquel Ram Measurements and Calculations Right Left BUSINESS PROCESS MODELER PSV 177.2 135.5 cm/sec Prox PFA PSV -103.7 -85.0 cm/sec Prox Pop A PSV 58.7 53.4 cm/sec Mid NGOC PSV 29.6 cm/sec Kevin Pedis PSV -139.7 -46.5 cm/sec Right Side Arterial Evaluation Normal velocity and triphasic waveforms noted from the Common Femoral artery to the Dorsalis Pedis artery .Unable to evaluate other infrageniculate vessels due to leg swelling and body habitus. Ankle Brachial index not obtained . Left Side Arterial Evaluation Normal velocity and triphasic waveforms noted in the Common Femoral artery. Biphasic with normal velocity in the Deep Femoral and to the Anterior Tibial . Could not visualize the Posterior Tibial due to swelling, body habitus. Ankle Brachial index not obtained . Interpretation Summary No hemodynamically significant lesions in the right lower extremity only, on duplex imaging, at rest. Moderate hemodynamically significant lesions in the left lower extremity only, on duplex imaging, at rest. Evaluated vessels on the right seem normal. on the left compromise in the Deep and Femoral arteries is noted. Of note the study is suboptimal due to inability to visualize some infrageniculate vessels as noted. : LARRY^FLORINA^Susy^^ > Sim Echols
[2018-11-13] MEDS: HEPARIN SOD (PORCINE) 5,000 UNIT/ML 1 ML SYRINGE SUBCUT SCH ×2 (05:09→14:55)
[2018-11-13 06:22] LABS: HEMATOCRIT 27.1 % (36.0-47.0); HEMOGLOBIN 9.2 g/dL (12.0-15.5); MEAN CORPUSCULAR HEMOGLOBIN 31.5 pg (27.0-33.4); MEAN CORPUSCULAR HGB CONC 34.1 g/dL (32.0-36.0); MEAN CORPUSCULAR VOLUME 92 fl (80-97); PLATELET COUNT 106 10^3/uL (150-450); RED BLOOD COUNT 2.94 10^6/uL (3.72-5.28); RED CELL DISTRIBUTION WIDTH 13.6 % (11.5-14.0); WHITE BLOOD COUNT 14.5 10^3/uL (4.0-10.5)
[2018-11-13 06:52] LABS: ALANINE AMINOTRANSFERASE 22 U/L (9-52); ALBUMIN 3.4 g/dL (3.5-5.0); ALKALINE PHOSPHATASE 87 U/L (38-126); ANION GAP 12 (5-19); ASPARTATE AMINO TRANSFERASE 21 U/L (14-36); BILIRUBIN,DIRECT 0.2 mg/dL (0.0-0.4); BILIRUBIN,TOTAL 0.6 mg/dL (0.2-1.3); BLOOD UREA NITROGEN 62 mg/dL (7-20); CALCIUM 8.6 mg/dL (8.4-10.2); CARBON DIOXIDE 25 mmol/L (22-30); CHLORIDE 93 mmol/L (98-107); GLUCOSE 159 mg/dL (75-110); POTASSIUM 3.1 mmol/L (3.6-5.0); SODIUM 130.2 mmol/L (137-145); TOTAL PROTEIN 5.8 g/dL (6.3-8.2)
[2018-11-13] MEDS: METOCLOPRAMIDE HCL 10 MG TABLET PO SCH ×4 (08:03→21:25)
[2018-11-13] MEDS: SUCRALFATE SUSP 1 GM/10 ML UDCUP PO SCH ×4 (08:03→21:25)
[2018-11-13] MEDS: INSULIN REG, HUMAN 100 UNIT/ML 3 ML VIAL (PYX) SUBCUT SCH ×4 (08:03→22:19)
[2018-11-13] MEDS: CALCIUM CARBONATE 500 MG TABLET PO SCH ×2 (09:15→18:22)
[2018-11-13] MEDS: FAMOTIDINE 20 MG TABLET PO SCH ×2 (09:16→21:25)
[2018-11-13] MEDS: DOCUSATE SODIUM 100 MG CAPSULE PO SCH ×2 (09:16→18:22)
[2018-11-13] MEDS: INSULIN DETEMIR 100 UNIT/ML 3 ML PEN SUBCUT SCH ×2 (09:17→22:20)
[2018-11-13] MEDS: POLYETHYLENE GLYCOL 3350 POWDER 17 GM/1 PACKET PO SCH (11:03)
--- NOTE | 2018-11-13 12:19 | PDOC PROGRESS REPORT ---
Subjective Progress Note for:: 11/13/18 Subjective:: Patient was seen and examined. She had her first dialysis 11/10/2018. creatinine is slightly better today at 2.74. She was seen by orthopedic surgery and recommend hip replacement outpatient when she is more stable. Reason For Visit: HYPERGLYCEMIA,HYPERKALEMIA Physical Exam Vital Signs: Temp Pulse Resp BP Pulse Ox 98.4 F 83 18 138/55 H 100 11/13/18 11:56 11/13/18 11:56 11/13/18 11:56 11/13/18 11:56 11/13/18 11:56 Intake & Output 11/12/18 11/13/18 11/14/18 06:59 06:59 06:59 Intake Total 537 150 Output Total 2455 400 Balance -1918 -250 Weight 281 lb 15.539 oz 286 lb 9.615 oz General appearance: PRESENT: no acute distress, cooperative, obese Head exam: PRESENT: atraumatic, normocephalic Ear exam: ABSENT: bleeding, drainage Mouth exam: PRESENT: moist, neck supple Neck exam: ABSENT: meningismus, tenderness Respiratory exam: PRESENT: clear to auscultation heron. ABSENT: accessory muscle use Cardiovascular exam: PRESENT: RRR Pulses: PRESENT: normal radial pulses GI/Abdominal exam: PRESENT: normal bowel sounds, soft Rectal exam: PRESENT: deferred Extremities exam: PRESENT: other - Bluish discoloration of toes bilaterally Neurological exam: PRESENT: alert, awake, oriented to person, oriented to place, oriented to time, oriented to situation Psychiatric exam: PRESENT: anxious Results Laboratory Results: 11/13/18 06:15 11/13/18 06:15 11/13/18 11/13/18 06:15 06:15 WBC 14.5 H RBC 2.94 L Hgb 9.2 L Hct 27.1 L MCV 92 MCH 31.5 MCHC 34.1 RDW 13.6 Plt Count 106 L Sodium 130.2 L Potassium 3.1 L Chloride 93 L Carbon Dioxide 25 Anion Gap 12 BUN 62 H Creatinine 2.74 H Est GFR ( Amer) 21 L Est GFR (Non-Af Amer) 17 L Glucose 159 H Calcium 8.6 Total Bilirubin 0.6 AST 21 ALT 22 Alkaline Phosphatase 87 Total Protein 5.8 L Albumin 3.4 L 11/07/18 11/07/18 11/08/18 18:00 20:33 04:10 Creatine Kinase 48 CK-MB (CK-2) Troponin I < 0.012 < 0.012 11/08/18 11/08/18 11/08/18 04:10 10:10 10:10 Creatine Kinase 54 CK-MB (CK-2) 0.81 0.93 Troponin I 0.018 0.023 11/08/18 11/08/18 16:15 16:15 Creatine Kinase 59 CK-MB (CK-2) 0.86 Troponin I 0.027 Impressions: Abdomen/Pelvis CT 11/07/18 22:18 IMPRESSION: 1. No acute intra-abdominal pathology. 2. Diverticulosis without inflammatory findings. 3. L4-L5 posterior spinal fusion with hardware grossly intact. 4. 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 Chest X-Ray 11/09/18 00:00 IMPRESSION: Right-sided dialysis catheter has been placed and is in good position. Renal Ultrasound 11/09/18 00:00 IMPRESSION: Small left renal cyst. The bladder is decompressed by Aleman catheter. No other significant findings. Assessment & Plan - Diagnosis (1) Acute renal failure Is this a current diagnosis for this admission?: Yes Plan: Fractional excretion of sodium is 0.04% Diagnostic impression is contrast-induced nephrotoxicity per nephrology Received her first hemodialysis session 11/10/2018. Anticentromere antibody is positive. Patient known to have Raynaud's disease Nephrology is following Did not receive any dialysis this week, possible dialysis tomorrow. (2) Hyperglycemia due to type 2 diabetes mellitus Is this a current diagnosis for this admission?: Yes Plan: Insulin dose adjusted. Continue to monitor glucose levels (3) Hyperkalemia Is this a current diagnosis for this admission?: Yes Plan: She actually hypokalemic today. We will give 40 mEq of potassium orally. Monitor potassium levels. (4) Hypothyroidism Qualifiers: Hypothyroidism type: unspecified Qualified Code(s): E03.9 - Hypothyroidism, unspecified Is this a current diagnosis for this admission?: Yes Plan: TSH is normal. (5) Morbid obesity with BMI of 40.0-44.9, adult Is this a current diagnosis for this admission?: Yes Plan: Recommend lifestyle modifications (6) Toe cyanosis Is this a current diagnosis for this admission?: Yes Plan: Patient has Raynaud's disease and has good pulsations. But toes are a lot darker than usual and started demarcate. Arterial ultrasound of the lower extremities shows moderate stenosis in the left femoral arteries. Vascular surgery consulted and are aware. We will start amlodipine.
[2018-11-13] MEDS: AMLODIPINE BESYLATE 5 MG TABLET PO SCH (12:40)
[2018-11-13] MEDS ORDERED: POTASSIUM CHLORIDE 10 MEQ CAPSULE.ER PO ONE (13:00)
[2018-11-13] MEDS ORDERED: HEPARIN SODIUM,PORCINE/D5W 25,000 UNIT/250 ML RTUINJ IV PRN (14:23)
[2018-11-13 15:44] LABS: HEMATOCRIT 27.6 % (36.0-47.0); HEMOGLOBIN 9.5 g/dL (12.0-15.5); INTERNATIONAL RATION (INR) 1.03; MEAN CORPUSCULAR HEMOGLOBIN 31.6 pg (27.0-33.4); MEAN CORPUSCULAR HGB CONC 34.2 g/dL (32.0-36.0); MEAN CORPUSCULAR VOLUME 92 fl (80-97); PLATELET COUNT 116 10^3/uL (150-450); RED CELL DISTRIBUTION WIDTH 13.7 % (11.5-14.0); WHITE BLOOD COUNT 13.4 10^3/uL (4.0-10.5)
[2018-11-13 15:45] LABS: PARTIAL THROMBOPLASTIN TIME 31.9 SEC (23.5-35.8)
[2018-11-13 16:02] LABS: ABSOLUTE MONOCYTES # (MANUAL) 0.7 10^3/uL (0.1-1.4); ABSOLUTE NEUTROPHILS# (MANUAL) 10.1 10^3/uL (1.7-8.2); BASOPHILS % (MANUAL) 0 % (0-2); EOSINOPHILS % (MANUAL) 5 % (0-6); LYMPHOCYTES % (MANUAL) 15 % (13-45); MONOCYTES % (MANUAL) 5 % (3-13); PLATELET COMMENT DECREASED; SEGMENTED NEUTROPHILS % (MAN) 75 % (42-78); TOTAL CELLS COUNTED 100; TOXIC GRANULATION 1+
[2018-11-13 18:14] LABS: APPEARANCE,URINE CLOUDY; BILIRUBIN,URINE NEGATIVE (NEGATIVE); COLOR,URINE YELLOW; GLUCOSE, URINE 50 mg/dL (NEGATIVE); KETONES,URINE NEGATIVE (NEGATIVE); LEUKOCYTE ESTERASE,URINE NEGATIVE (NEGATIVE); NITRITE,URINE NEGATIVE (NEGATIVE); PROTEIN,URINE NEGATIVE (NEGATIVE); URINE SPECIFIC GRAVITY 1.012; UROBILINOGEN,URINE NEGATIVE mg/dL (<2.0)
[2018-11-13] MEDS ORDERED: AMIODARONE HCL INJ 150 MG/3 ML VIAL IV ONE (20:18)
[2018-11-13] MEDS ORDERED: FONDAPARINUX SODIUM INJ 10 MG/0.8 ML DISP.SYRIN SUBCUT ONE ×2 (20:30→20:48)
[2018-11-14 04:52] LABS: HEMATOCRIT 27.3 % (36.0-47.0); HEMOGLOBIN 9.5 g/dL (12.0-15.5); MEAN CORPUSCULAR HEMOGLOBIN 31.7 pg (27.0-33.4); MEAN CORPUSCULAR HGB CONC 34.9 g/dL (32.0-36.0); MEAN CORPUSCULAR VOLUME 91 fl (80-97); PLATELET COUNT 146 10^3/uL (150-450); RED BLOOD COUNT 3.01 10^6/uL (3.72-5.28); RED CELL DISTRIBUTION WIDTH 13.6 % (11.5-14.0); WHITE BLOOD COUNT 13.9 10^3/uL (4.0-10.5)
[2018-11-14 05:15] LABS: ANION GAP 11 (5-19); BLOOD UREA NITROGEN 63 mg/dL (7-20); CALCIUM 8.8 mg/dL (8.4-10.2); CARBON DIOXIDE 25 mmol/L (22-30); CHLORIDE 94 mmol/L (98-107); GLUCOSE 156 mg/dL (75-110); POTASSIUM 3.6 mmol/L (3.6-5.0); SODIUM 130.4 mmol/L (137-145)
[2018-11-14] MEDS: 1/2 NORMAL SALINE 1,000 ML IV PRN (09:00)
[2018-11-14] MEDS: POLYETHYLENE GLYCOL 3350 POWDER 17 GM/1 PACKET PO SCH (09:14)
[2018-11-14] MEDS: SUCRALFATE SUSP 1 GM/10 ML UDCUP PO SCH ×4 (09:14→21:48)
[2018-11-14] MEDS: DOCUSATE SODIUM 100 MG CAPSULE PO SCH ×2 (09:14→17:40)
[2018-11-14] MEDS: FAMOTIDINE 20 MG TABLET PO SCH ×2 (09:14→21:48)
[2018-11-14] MEDS: METOCLOPRAMIDE HCL 10 MG TABLET PO SCH ×4 (09:15→21:48)
[2018-11-14] MEDS: AMLODIPINE BESYLATE 5 MG TABLET PO SCH (09:15)
[2018-11-14] MEDS: INSULIN REG, HUMAN 100 UNIT/ML 3 ML VIAL (PYX) SUBCUT SCH ×4 (09:15→21:47)
[2018-11-14] MEDS: CALCIUM CARBONATE 500 MG TABLET PO SCH ×2 (09:15→17:40)
[2018-11-14] MEDS: INSULIN DETEMIR 100 UNIT/ML 3 ML PEN SUBCUT SCH ×2 (09:16→21:48)
--- NOTE | 2018-11-14 09:34 | PDOC PROGRESS REPORT ---
Subjective Progress Note for:: 11/14/18 Subjective:: Bilateral feet pain only with movement and ambulation. There was no acute events overnight. c/o of constipation for the last 4 days. She is not anuric anymore. Denies any fever, shortness of breath, chills, nausea, diarrhea, abdominal pain or any urinary symptoms. Reason For Visit: HYPERGLYCEMIA,HYPERKALEMIA Physical Exam Vital Signs: Temp Pulse Resp BP Pulse Ox 97.8 F 82 16 146/59 H 94 11/14/18 07:44 11/14/18 07:44 11/14/18 07:44 11/14/18 07:44 11/14/18 07:44 Intake & Output 11/13/18 11/14/18 11/15/18 06:59 06:59 06:59 Intake Total 150 927 Output Total 400 2100 Balance -250 -1173 Weight 130 kg 129.4 kg General appearance: PRESENT: no acute distress, morbidly obese, well-developed, well-nourished Head exam: PRESENT: atraumatic, normocephalic Respiratory exam: PRESENT: clear to auscultation heron. ABSENT: rales, rhonchi, wheezes Cardiovascular exam: PRESENT: RRR. ABSENT: diastolic murmur, rubs, systolic murmur GI/Abdominal exam: PRESENT: normal bowel sounds, soft. ABSENT: distended, guarding, mass, organolmegaly, rebound, tenderness Musculoskeletal exam: PRESENT: other - Bilateral metatarsals with black discoloration of the skin with bilateral bullae over the dorsal aspect of great toes approximately 4 x 4 cm. Results Laboratory Results: 11/14/18 04:45 11/14/18 04:45 11/13/18 11/13/18 11/13/18 06:15 15:20 17:54 WBC 13.4 H RBC 3.00 L Hgb 9.5 L Hct 27.6 L MCV 92 MCH 31.6 MCHC 34.2 RDW 13.7 Plt Count 116 L Seg Neutrophils % Not Reportable Lymphocytes % Not Reportable Monocytes % Not Reportable Eosinophils % Not Reportable Basophils % Not Reportable Absolute Neutrophils Not Reportable Absolute Lymphocytes Not Reportable Absolute Monocytes Not Reportable Absolute Eosinophils Not Reportable Absolute Basophils Not Reportable Sodium Potassium Chloride Carbon Dioxide Anion Gap BUN Creatinine Est GFR ( Amer) Est GFR (Non-Af Amer) Glucose Calcium Magnesium 1.9 Urine Color YELLOW Urine Appearance CLOUDY Urine pH 5.0 Ur Specific [place] 1.012 Urine Protein NEGATIVE Urine Glucose (UA) 50 H Urine Ketones NEGATIVE Urine Blood NEGATIVE Urine Nitrite NEGATIVE Ur Leukocyte Esterase NEGATIVE Urine WBC (Auto) 3 Urine RBC (Auto) 3 11/14/18 11/14/18 04:45 04:45 WBC 13.9 H RBC 3.01 L Hgb 9.5 L Hct 27.3 L MCV 91 MCH 31.7 MCHC 34.9 RDW 13.6 Plt Count 146 L Seg Neutrophils % Lymphocytes % Monocytes % Eosinophils % Basophils % Absolute Neutrophils Absolute Lymphocytes Absolute Monocytes Absolute Eosinophils Absolute Basophils Sodium 130.4 L Potassium 3.6 Chloride 94 L Carbon Dioxide 25 Anion Gap 11 BUN 63 H Creatinine 2.35 H Est GFR ( Amer) 25 L Est GFR (Non-Af Amer) 20 L Glucose 156 H Calcium 8.8 Magnesium 2.0 Urine Color Urine Appearance Urine pH Ur Specific [place] Urine Protein Urine Glucose (UA) Urine Ketones Urine Blood Urine Nitrite Ur Leukocyte Esterase Urine WBC (Auto) Urine RBC (Auto) 11/07/18 11/07/18 11/08/18 18:00 20:33 04:10 Creatine Kinase 48 CK-MB (CK-2) Troponin I < 0.012 < 0.012 11/08/18 11/08/18 11/08/18 04:10 10:10 10:10 Creatine Kinase 54 CK-MB (CK-2) 0.81 0.93 Troponin I 0.018 0.023 11/08/18 11/08/18 16:15 16:15 Creatine Kinase 59 CK-MB (CK-2) 0.86 Troponin I 0.027 Impressions: Abdomen/Pelvis CT 11/07/18 22:18 IMPRESSION: 1. No acute intra-abdominal pathology. 2. Diverticulosis without inflammatory findings. 3. L4-L5 posterior spinal fusion with hardware grossly intact. 4. 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 Chest X-Ray 11/09/18 00:00 IMPRESSION: Right-sided dialysis catheter has been placed and is in good position. Renal Ultrasound 11/09/18 00:00 IMPRESSION: Small left renal cyst. The bladder is decompressed by Aleman catheter. No other significant findings. Assessment & Plan - Diagnosis (1) Acute renal failure Is this a current diagnosis for this admission?: Yes Plan: Improving. Urine output 2100/24 hours up from 400. Creatinine on admission 1.3. Highest creatinine 4.04 to 2.35 today. Likely secondary to contrast-induced nephropathy. Patient had a CT abdomen with contrast on admission. 11/09/2018. Renal ultrasound small left renal cyst otherwise normal kidneys. 11/10/2018 patient received hemodialysis. Hemodialysis on hold as her kidney function improving. Does not look uremic. Continue IV fluids guided by volume status. Strict in and out. BMP tomorrow. Nephrology following. Avoid nephrotoxic meds. (2) Morbid obesity with BMI of 50.0-59.9, adult Is this a current diagnosis for this admission?: Yes Plan: Diet and lifestyle modification. (3) Diabetes mellitus type 2 in obese Is this a current diagnosis for this admission?: Yes Plan: A1c on admission 10.7%. Fasting blood glucose 156. POC glucose 157-258. Diabetic diet, long-acting insulin, pre-meal insulin, adding a scale insulin, adjust dosage. Patient may benefit from oral hypoglycemics as outpatient after her kidney function has improved. (4) Hyperkalemia Is this a current diagnosis for this admission?: Yes Plan: Resolved. Tomorrow. Replace as needed. (5) Hypothyroidism Qualifiers: Hypothyroidism type: unspecified Qualified Code(s): E03.9 - Hypothyroidism, unspecified Is this a current diagnosis for this admission?: Yes Plan: 11/08/2018. TSH 2.74, free T4 1.53, free T3 2.62. Patient does not take thyroid replacement therapy at home. (6) Toe cyanosis Is this a current diagnosis for this admission?: Yes Plan: Likely due to underlying Raynaud's or limited scleroderma. Anticentromere antibodies > 8. C3 175 C4 39. Anti-Eneida 1, SSA, SSB negative Rheumatoid factor LISETTE pending. Outpatient rheumatology follow-up. 11/12/2018. Bilateral lower extremity arterial Doppler. No hemodynamically significant lesions in the right lower extremity only ,on duplex imaging, at rest. Moderate hemodynamically significant lesions in the left lower extremity only, on duplex imaging, at rest. Evaluated vessels on the right seem normal. On the left compromise in the deep and femoral arteries is noted. Suboptimal study. Vascular surgery has been consulted no intervention at this point. She is to start amlodipine and heparin drip. Patient has thrombocytopenia since admission she received heparin on admission while use fondaparinux instead of just in case this is heparin-induced thrombocytopenia. PF4 pending. (7) Avascular necrosis Is this a current diagnosis for this admission?: Yes Plan: 11/07/2018. 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 Orthopedic surgery has been consulted. A surgical candidate at this point. Outpatient follow-up with orthopedic surgery. Continue supportive measures. (8) Thrombocytopenia Is this a current diagnosis for this admission?: Yes Plan: Resolved. Platelets on admission 299 dropped to 85 3 days later. She had received heparin subcutaneous for DVT prophylaxis. Will use fondaparinux instead of heparin while lying out heparin-induced thrombocytopenia. PLT4 pending. Repeat tomorrow. Monitor for bleeding.
[2018-11-14] MEDS ORDERED: BISACODYL 5 MG TABEC PO PRN (09:35)
[2018-11-14] MEDS: MORPHINE SULFATE 10 MG/ML INJ IV PRN ×2 (11:19→17:37)
--- NOTE | 2018-11-14 14:52 | PDOC PROGRESS REPORT ---
Subjective Progress Note for:: 11/14/18 Reason For Visit: Patient seen today. Her charts were reviewed. Discussions were done with the treating nurse Jo. Patient feels much better than apparently last week when her partner had seen her. She denies any history of chest pain or shortness of breath. Has a good appetite. She admits to the fact that her toes blue from Raynauds and sometimes it persists for days. She denies any pain. She is inactive and being in bed. Some constipation issues. Labs were reviewed with her which shows slight decreasing creatinine. She has had a good urine output of 2000+ cc of urine. Physical Exam Vital Signs: Temp Pulse Resp BP Pulse Ox 98.4 F 79 16 157/55 H 95 11/14/18 11:31 11/14/18 11:31 11/14/18 11:31 11/14/18 11:31 11/14/18 11:31 Intake & Output 11/13/18 11/14/18 11/15/18 06:59 06:59 06:59 Intake Total 150 927 Output Total 400 2100 Balance -250 -1173 Weight 130 kg 129.4 kg General appearance: PRESENT: no acute distress Respiratory exam: PRESENT: clear to auscultation heron. ABSENT: crackles Cardiovascular exam: PRESENT: +S1, +S2, systolic murmur GI/Abdominal exam: PRESENT: normal bowel sounds, soft. ABSENT: organomegaly, tenderness Extremities exam: ABSENT: pedal edema Neurological exam: PRESENT: alert, awake, oriented to person, oriented to place Skin exam: ABSENT: erythema, mottled, rash Results Laboratory Results: 11/14/18 04:45 11/14/18 04:45 11/13/18 11/13/18 11/14/18 15:20 17:54 04:45 WBC 13.4 H 13.9 H RBC 3.00 L 3.01 L Hgb 9.5 L 9.5 L Hct 27.6 L 27.3 L MCV 92 91 MCH 31.6 31.7 MCHC 34.2 34.9 RDW 13.7 13.6 Plt Count 116 L 146 L Seg Neutrophils % Not Reportable Lymphocytes % Not Reportable Monocytes % Not Reportable Eosinophils % Not Reportable Basophils % Not Reportable Absolute Neutrophils Not Reportable Absolute Lymphocytes Not Reportable Absolute Monocytes Not Reportable Absolute Eosinophils Not Reportable Absolute Basophils Not Reportable Sodium Potassium Chloride Carbon Dioxide Anion Gap BUN Creatinine Est GFR ( Amer) Est GFR (Non-Af Amer) Glucose Calcium Magnesium Urine Color YELLOW Urine Appearance CLOUDY Urine pH 5.0 Ur Specific [place] 1.012 Urine Protein NEGATIVE Urine Glucose (UA) 50 H Urine Ketones NEGATIVE Urine Blood NEGATIVE Urine Nitrite NEGATIVE Ur Leukocyte Esterase NEGATIVE Urine WBC (Auto) 3 Urine RBC (Auto) 3 11/14/18 04:45 WBC RBC Hgb Hct MCV MCH MCHC RDW Plt Count Seg Neutrophils % Lymphocytes % Monocytes % Eosinophils % Basophils % Absolute Neutrophils Absolute Lymphocytes Absolute Monocytes Absolute Eosinophils Absolute Basophils Sodium 130.4 L Potassium 3.6 Chloride 94 L Carbon Dioxide 25 Anion Gap 11 BUN 63 H Creatinine 2.35 H Est GFR ( Amer) 25 L Est GFR (Non-Af Amer) 20 L Glucose 156 H Calcium 8.8 Magnesium 2.0 Urine Color Urine Appearance Urine pH Ur Specific [place] Urine Protein Urine Glucose (UA) Urine Ketones Urine Blood Urine Nitrite Ur Leukocyte Esterase Urine WBC (Auto) Urine RBC (Auto) 11/07/18 11/07/18 11/08/18 18:00 20:33 04:10 Creatine Kinase 48 CK-MB (CK-2) Troponin I < 0.012 < 0.012 11/08/18 11/08/18 11/08/18 04:10 10:10 10:10 Creatine Kinase 54 CK-MB (CK-2) 0.81 0.93 Troponin I 0.018 0.023 11/08/18 11/08/18 16:15 16:15 Creatine Kinase 59 CK-MB (CK-2) 0.86 Troponin I 0.027 Impressions: Abdomen/Pelvis CT 11/07/18 22:18 IMPRESSION: 1. No acute intra-abdominal pathology. 2. Diverticulosis without inflammatory findings. 3. L4-L5 posterior spinal fusion with hardware grossly intact. 4. 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 Chest X-Ray 11/09/18 00:00 IMPRESSION: Right-sided dialysis catheter has been placed and is in good position. Renal Ultrasound 11/09/18 00:00 IMPRESSION: Small left renal cyst. The bladder is decompressed by Aleman c atheter. No other significant findings. Assessment & Plan - Diagnosis (1) Acute kidney injury Is this a current diagnosis for this admission?: Yes Plan: Currently nonoliguric. She has just produced a good diuresis of 2000+ cc of urine as she is now going through an expected diuretic phase of ATN recovery.Clinically she looks dry. We will started on gentle fluid hydration. Labs are stable but for mildly low sodium. No indications for renal replacements. Discussions were done with her as were the treating nurse Jo in my dialysis nurse.Monitor for hydration and electrolyte imbalances. (2) Avascular necrosis Is this a current diagnosis for this admission?: Yes Plan: Of the right hip. Awaiting outpatient surgical treatment once she gets to her present crisis. (3) Contrast dye induced nephropathy Is this a current diagnosis for this admission?: Yes Plan: That led to her present AK I. Seems like she is recovering. Monitor. (4) Diabetes mellitus type 2 in obese Is this a current diagnosis for this admission?: Yes Plan: Advised tight control. (5) Hyperkalemia Is this a current diagnosis for this admission?: Yes (6) Thrombocytasthenia Is this a current diagnosis for this admission?: Yes Plan: Currently has improved to 146. (7) Hyponatremia Is this a current diagnosis for this admission?: Yes Plan: Advised fluid restriction. Will monitor. (8) Raynaud's disease Plan: Leading to bluish lazo discoloration of multiple toes in both feet.Sometimes she says it persist for days. Both hospitalist and surgeons are following.
[2018-11-14] MEDS ORDERED: FUROSEMIDE INJ/PF 20 MG/2 ML SDV IV ONE (16:00)
[2018-11-14 16:46] LABS: APPEARANCE,URINE SLIGHTLY-CLOUDY; BILIRUBIN,URINE NEGATIVE (NEGATIVE); COLOR,URINE YELLOW; GLUCOSE, URINE 50 mg/dL (NEGATIVE); KETONES,URINE NEGATIVE (NEGATIVE); LEUKOCYTE ESTERASE,URINE NEGATIVE (NEGATIVE); NITRITE,URINE NEGATIVE (NEGATIVE); PROTEIN,URINE NEGATIVE (NEGATIVE); URINE SPECIFIC GRAVITY 1.011; UROBILINOGEN,URINE NEGATIVE mg/dL (<2.0)
[2018-11-14] MEDS: FONDAPARINUX SODIUM INJ 10 MG/0.8 ML DISP.SYRIN SUBCUT SCH (21:49)
[2018-11-15] MEDS: 1/2 NORMAL SALINE 1,000 ML IV PRN (00:29)
[2018-11-15] MEDS: SUCRALFATE SUSP 1 GM/10 ML UDCUP PO SCH ×4 (08:06→21:18)
[2018-11-15] MEDS: METOCLOPRAMIDE HCL 10 MG TABLET PO SCH ×4 (08:06→21:20)
[2018-11-15] MEDS: INSULIN REG, HUMAN 100 UNIT/ML 3 ML VIAL (PYX) SUBCUT SCH ×4 (08:13→21:20)
[2018-11-15 08:21] LABS: ANION GAP 12 (5-19); BLOOD UREA NITROGEN 59 mg/dL (7-20); CALCIUM 8.7 mg/dL (8.4-10.2); CARBON DIOXIDE 23 mmol/L (22-30); CHLORIDE 97 mmol/L (98-107); GLUCOSE 134 mg/dL (75-110); POTASSIUM 3.5 mmol/L (3.6-5.0); SODIUM 131.6 mmol/L (137-145)
[2018-11-15] MEDS: FAMOTIDINE 20 MG TABLET PO SCH ×2 (09:49→21:20)
[2018-11-15] MEDS: AMLODIPINE BESYLATE 5 MG TABLET PO SCH (09:49)
[2018-11-15] MEDS: CALCIUM CARBONATE 500 MG TABLET PO SCH ×2 (09:50→17:26)
[2018-11-15] MEDS: DOCUSATE SODIUM 100 MG CAPSULE PO SCH ×2 (09:50→17:25)
[2018-11-15] MEDS: POLYETHYLENE GLYCOL 3350 POWDER 17 GM/1 PACKET PO SCH (09:50)
[2018-11-15] MEDS: INSULIN DETEMIR 100 UNIT/ML 3 ML PEN SUBCUT SCH ×2 (09:50→21:20)
--- NOTE | 2018-11-15 15:11 | PDOC PROGRESS REPORT ---
Subjective Progress Note for:: 11/15/18 Subjective:: No acute events overnight. She is very pleasant and cooperative with physical examination. P.o. tolerant, having normal bowel and bladder movements. Constipation is improved. Will start she still having bilateral metatarsal necrotic skin changes with enlarging fluid-filled vesicles are only painful to palpation. Denies any fever, chills, nausea, vomiting, diarrhea, constipation or any urinary symptoms. Reason For Visit: HYPERGLYCEMIA,HYPERKALEMIA Physical Exam Vital Signs: Temp Pulse Resp BP Pulse Ox 97.4 F 79 16 119/40 L 99 11/15/18 11:31 11/15/18 11:31 11/15/18 11:31 11/15/18 11:31 11/15/18 11:31 Intake & Output 11/14/18 11/15/18 11/16/18 06:59 06:59 06:59 Intake Total 927 1487 Output Total 2100 2355 Balance -1173 -868 Weight 129.4 kg 129.1 kg General appearance: PRESENT: no acute distress, obese, well-developed, well- nourished Head exam: PRESENT: atraumatic, normocephalic Respiratory exam: PRESENT: clear to auscultation heron. ABSENT: rales, rhonchi, wheezes Cardiovascular exam: PRESENT: RRR. ABSENT: diastolic murmur, rubs, systolic murmur GI/Abdominal exam: PRESENT: normal bowel sounds, soft. ABSENT: distended, guarding, mass, organolmegaly, rebound, tenderness Extremities exam: PRESENT: full ROM, tenderness - Bilateral metatarsal necrotic skin, bilateral bullae about 4 x 4 cm on the dorsal/medial aspect of the bilateral feet. Neurovascularly intact. ABSENT: calf tenderness, clubbing, pedal edema Neurological exam: PRESENT: alert, awake, oriented to person, oriented to place, oriented to time, oriented to situation, CN II-XII grossly intact. ABSENT: motor sensory deficit Results Laboratory Results: 11/14/18 04:45 11/15/18 06:00 11/14/18 11/15/18 15:44 06:00 Sodium 131.6 L Potassium 3.5 L Chloride 97 L Carbon Dioxide 23 Anion Gap 12 BUN 59 H Creatinine 1.60 H Est GFR ( Amer) 38 L Est GFR (Non-Af Amer) 32 L Glucose 134 H Calcium 8.7 Urine Color YELLOW Urine Appearance SLIGHTLY-CLOUDY Urine pH 5.0 Ur Specific [place] 1.011 Urine Protein NEGATIVE Urine Glucose (UA) 50 H Urine Ketones NEGATIVE Urine Blood NEGATIVE Urine Nitrite NEGATIVE Ur Leukocyte Esterase NEGATIVE Urine WBC (Auto) 1 Urine RBC (Auto) 0 11/07/18 11/07/18 11/08/18 18:00 20:33 04:10 Creatine Kinase 48 CK-MB (CK-2) Troponin I < 0.012 < 0.012 11/08/18 11/08/18 11/08/18 04:10 10:10 10:10 Creatine Kinase 54 CK-MB (CK-2) 0.81 0.93 Troponin I 0.018 0.023 11/08/18 11/08/18 16:15 16:15 Creatine Kinase 59 CK-MB (CK-2) 0.86 Troponin I 0.027 Impressions: Abdomen/Pelvis CT 11/07/18 22:18 IMPRESSION: 1. No acute intra-abdominal pathology. 2. Diverticulosis without inflammatory findings. 3. L4-L5 posterior spinal fusion with hardware grossly intact. 4. 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 Chest X-Ray 11/09/18 00:00 IMPRESSION: Right-sided dialysis catheter has been placed and is in good position. Renal Ultrasound 11/09/18 00:00 IMPRESSION: Small left renal cyst. The bladder is decompressed by Aleman catheter. No other significant findings. Assessment & Plan - Diagnosis (1) Acute renal failure Is this a current diagnosis for this admission?: Yes Plan: Improving. Urine output 2355, fluid balance -868. Creatinine on admission 1.3. Highest creatinine 4.04. Creatinine 1.6 down from 2.35. Likely secondary to contrast-induced nephropathy. Patient had a CT abdomen with contrast on admission. 11/09/2018. Renal ultrasound small left renal cyst otherwise normal kidneys. 11/10/2018 patient received hemodialysis. Hemodialysis on hold as her kidney function improving. Does not look uremic. Continue IV fluids guided by volume status. Strict in and out. BMP tomorrow. Nephrology following. Avoid nephrotoxic meds. (2) Toe cyanosis Is this a current diagnosis for this admission?: Yes Plan: Likely due to underlying Raynaud's or limited scleroderma. Anticentromere antibodies > 8. C3 175 C4 39. Anti-Eneida 1, SSA, SSB negative Rheumatoid factor LISETTE pending. Outpatient rheumatology follow-up. Discussion has been made with the patient for possible transfer to another tertiary center where there are no other subspecialties but at this time she does not want to be transferred as her is here in [place] and it would be very difficult for him to visit her. Would like to be discharged home and follow-up with bilingual call center representative as outpatient. 11/12/2018. Bilateral lower extremity arterial Doppler. No hemodynamically significant lesions in the right lower extremity only ,on duplex imaging, at rest. Moderate hemodynamically significant lesions in the left lower extremity only, on duplex imaging, at rest. Evaluated vessels on the right seem normal. On the left compromise in the deep and femoral arteries is noted. Suboptimal study. Vascular surgery has been consulted no intervention at this point. She is to start amlodipine and heparin drip. Patient has thrombocytopenia since admission she received heparin on admission while use fondaparinux instead of just in case this is heparin-induced thrombocytopenia. PF4 pending. (3) Morbid obesity with BMI of 50.0-59.9, adult Is this a current diagnosis for this admission?: Yes Plan: Diet and lifestyle modification. (4) Diabetes mellitus type 2 in obese Is this a current diagnosis for this admission?: Yes Plan: A1c on admission 10.7%. Fasting blood glucose 156. POC glucose 157-258. Diabetic diet, long-acting insulin, pre-meal insulin, adding a scale insulin, adjust dosage. Patient may benefit from oral hypoglycemics as outpatient after her kidney function has improved. (5) Hyperkalemia Is this a current diagnosis for this admission?: Yes Plan: Resolved. (6) Hypothyroidism Qualifiers: Hypothyroidism type: unspecified Qualified Code(s): E03.9 - Hypothyroidism, unspecified Is this a current diagnosis for this admission?: Yes Plan: 11/08/2018. TSH 2.74, free T4 1.53, free T3 2.62. Patient does not take thyroid replacement therapy at home. (7) Avascular necrosis Is this a current diagnosis for this admission?: Yes Plan: 11/07/2018. 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 Orthopedic surgery has been consulted. A surgical candidate at this point. Outpatient follow-up with orthopedic surgery. Continue supportive measures. (8) Thrombocytopenia Is this a current diagnosis for this admission?: Yes
--- NOTE | 2018-11-15 15:11 | PDOC PROGRESS REPORT ---
Subjective Progress Note for:: 11/15/18 Reason For Visit: Patient seen today. Generally doing well. She says she tried to do physical therapy but was unable to bear any weight because of the painful blisters on her feet. She is making good urine output. Labs and medications were reviewed with the patient that shows improving creatinine. Physical Exam Vital Signs: Temp Pulse Resp BP Pulse Ox 97.4 F 79 16 119/40 L 99 11/15/18 11:31 11/15/18 11:31 11/15/18 11:31 11/15/18 11:31 11/15/18 11:31 Intake & Output 11/14/18 11/15/18 11/16/18 06:59 06:59 06:59 Intake Total 927 1487 Output Total 2100 2355 Balance -1173 -868 Weight 129.4 kg 129.1 kg General appearance: PRESENT: no acute distress Respiratory exam: PRESENT: clear to auscultation heron. ABSENT: crackles Cardiovascular exam: PRESENT: +S1, +S2, systolic murmur GI/Abdominal exam: PRESENT: normal bowel sounds, soft. ABSENT: organomegaly, tenderness Extremities exam: ABSENT: pedal edema Neurological exam: PRESENT: alert, awake, oriented to person, oriented to place Results Laboratory Results: 11/14/18 04:45 11/15/18 06:00 11/14/18 11/15/18 15:44 06:00 Sodium 131.6 L Potassium 3.5 L Chloride 97 L Carbon Dioxide 23 Anion Gap 12 BUN 59 H Creatinine 1.60 H Est GFR ( Amer) 38 L Est GFR (Non-Af Amer) 32 L Glucose 134 H Calcium 8.7 Urine Color YELLOW Urine Appearance SLIGHTLY-CLOUDY Urine pH 5.0 Ur Specific [place] 1.011 Urine Protein NEGATIVE Urine Glucose (UA) 50 H Urine Ketones NEGATIVE Urine Blood NEGATIVE Urine Nitrite NEGATIVE Ur Leukocyte Esterase NEGATIVE Urine WBC (Auto) 1 Urine RBC (Auto) 0 11/07/18 11/07/18 11/08/18 18:00 20:33 04:10 Creatine Kinase 48 CK-MB (CK-2) Troponin I < 0.012 < 0.012 11/08/18 11/08/18 11/08/18 04:10 10:10 10:10 Creatine Kinase 54 CK-MB (CK-2) 0.81 0.93 Troponin I 0.018 0.023 01/29/19 01/29/19 16:15 16:15 Creatine Kinase 59 CK-MB (CK-2) 0.86 Troponin I 0.027 Impressions: Abdomen/Pelvis CT 11/07/18 22:18 IMPRESSION: 1. No acute intra-abdominal pathology. 2. Diverticulosis without inflammatory findings. 3. L4-L5 posterior spinal fusion with hardware grossly intact. 4. 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 Chest X-Ray 11/09/18 00:00 IMPRESSION: Right-sided dialysis catheter has been placed and is in good p osition. Renal Ultrasound 11/09/18 00:00 IMPRESSION: Small left renal cyst. The bladder is decompressed by Aleman catheter. No other significant findings. Assessment & Plan - Diagnosis (1) Acute kidney injury Is this a current diagnosis for this admission?: Yes Plan: Currently nonoliguric. She is continuing to make good amounts of urine as she is recovering nicely from her ATN injury.Labs were reviewed with her and it shows improving creatinine. Her creatinine is any better from today tomorrow morning then she should should have a IJ catheter removed by the surgeons as she would not be requiring any more dialysis support. From a renal point of view she is doing very well. (2) Contrast dye induced nephropathy Is this a current diagnosis for this admission?: Yes Plan: That led to her present AK I. She is recovering. Monitor. (3) Diabetes mellitus type 2 in obese Is this a current diagnosis for this admission?: Yes Plan: Advised tight control. (4) Hyperkalemia Is this a current diagnosis for this admission?: Yes Plan: Resolved (5) Hyponatremia Is this a current diagnosis for this admission?: Yes Plan: Mild. Advised fluid restriction. Will monitor. (6) Raynaud's disease Plan: Leading to bluish lazo discoloration of multiple toes in both feet.Sometimes she says it persist for days. Both hospitalist and surgeons are following.
[2018-11-15] MEDS: SILVER SULFADIAZINE 1% CREAM 400 GM TP SCH (17:26)
[2018-11-15] MEDS: MORPHINE SULFATE 10 MG/ML INJ IV PRN (18:45)
[2018-11-15] MEDS: ACETAMINOPHEN 325 MG TABLET PO PRN (21:19)
[2018-11-15] MEDS: FONDAPARINUX SODIUM INJ 10 MG/0.8 ML DISP.SYRIN SUBCUT SCH (21:21)
--- NOTE | 2018-11-15 23:48 | OPERATIVE REPORT E ---
Operative Report NAME: ZAID DONALDSON : 1945 AGE: 73Y DATE OF SURGERY: 11/15/2018 ROOM: 315 PREOPERATIVE DIAGNOSIS: BLISTERS ON BOTH FEET AND TOES WITH DARK DISCOLORATION OF THE TOES. POSTOPERATIVE DIAGNOSIS: BLISTERS ON BOTH FEET AND TOES WITH DARK DISCOLORATION OF THE TOES. PROCEDURE: Sharp debridement of blisters on both feet and removal of the toes. The right blister roughly measured 10 cm x 12 cm wide and left foot 5 cm long x 12 cm wide. SURGEON: SPENCER STAPLES M.D. DESCRIPTION OF PROCEDURE: The left blister was incised with an 11 blade and further excised with the use of scissors. The blister went to the midfoot and all over the left toes which were noted to be darkly discolored. The patient did not have any pain. These blisters partly started about 3 days ago and when it was noted the SCDs were discontinued. The patient had a history of Raynaud's disease and most likely this is due to Raynaud's disease with distal arterial insufficiency. All the blisters were removed, including around the toes and also removal of the toenails of all toes. The left big toenail needed to be pulled out, compared to the other toes were the toenails just came out together with removal of the blisters. The distal ends of the toes are primarily the ones discolored. Attention directed to the right foot were again the blisters were opened with an 11 blade and sharply removed with the use of scissors. The inner part of the blister this time had some more exudate and specimen was sent for C and S of the exudate. All the blisters were removed and all the toenails came out quite easily when pulling up the blisters. The blisters went around the toes. Again, the distal toes were the ones darkly discolored. The patient had good dorsalis pedis artery pulse on both feet. After removal of the blisters which has good underlying tissue underneath except the distal ends of all the toes. A Silvadene dressing was then placed by the nurse following debridement. The patient tolerated the procedure well. The patient advised to elevate both legs when in bed because of edema down to both ankles. DICTATING PHYSICIAN: SPENCER STAPLES M.D. [id number] PHY#: [id number] ID: [id number] JOB#: [id number] ACCT: [id number] cc:SPENCER STAPLES M.D. >
[2018-11-16 05:54] LABS: HEMATOCRIT 26.9 % (36.0-47.0); HEMOGLOBIN 9.4 g/dL (12.0-15.5); MEAN CORPUSCULAR HEMOGLOBIN 32.2 pg (27.0-33.4); MEAN CORPUSCULAR HGB CONC 35.1 g/dL (32.0-36.0); MEAN CORPUSCULAR VOLUME 92 fl (80-97); PLATELET COUNT 222 10^3/uL (150-450); RED BLOOD COUNT 2.93 10^6/uL (3.72-5.28); RED CELL DISTRIBUTION WIDTH 13.5 % (11.5-14.0); WHITE BLOOD COUNT 10.9 10^3/uL (4.0-10.5)
[2018-11-16 07:09] LABS: ANION GAP 9 (5-19); BLOOD UREA NITROGEN 51 mg/dL (7-20); CALCIUM 8.8 mg/dL (8.4-10.2); CARBON DIOXIDE 28 mmol/L (22-30); CHLORIDE 97 mmol/L (98-107); GLUCOSE 150 mg/dL (75-110); POTASSIUM 3.7 mmol/L (3.6-5.0); SODIUM 134.1 mmol/L (137-145)
[2018-11-16] MEDS: POLYETHYLENE GLYCOL 3350 POWDER 17 GM/1 PACKET PO SCH (09:14)
[2018-11-16] MEDS: FAMOTIDINE 20 MG TABLET PO SCH ×2 (09:14→21:42)
[2018-11-16] MEDS: AMLODIPINE BESYLATE 5 MG TABLET PO SCH (09:15)
[2018-11-16] MEDS: CALCIUM CARBONATE 500 MG TABLET PO SCH ×2 (09:15→17:48)
[2018-11-16] MEDS: INSULIN REG, HUMAN 100 UNIT/ML 3 ML VIAL (PYX) SUBCUT SCH ×3 (09:15→20:44)
[2018-11-16] MEDS: DOCUSATE SODIUM 100 MG CAPSULE PO SCH ×2 (09:15→17:48)
[2018-11-16] MEDS: INSULIN DETEMIR 100 UNIT/ML 3 ML PEN SUBCUT SCH ×2 (09:16→23:18)
[2018-11-16] MEDS: METOCLOPRAMIDE HCL 10 MG TABLET PO SCH ×4 (09:17→21:41)
[2018-11-16] MEDS: SUCRALFATE SUSP 1 GM/10 ML UDCUP PO SCH ×4 (09:17→21:41)
[2018-11-16] MEDS: MORPHINE SULFATE 10 MG/ML INJ IV PRN ×2 (13:57→17:54)
[2018-11-16] MEDS: SILVER SULFADIAZINE 1% CREAM 400 GM TP SCH ×2 (13:59→17:49)
--- NOTE | 2018-11-16 16:19 | PDOC PROGRESS REPORT ---
Subjective Progress Note for:: 11/16/18 Subjective:: No acute events overnight. She is very pleasant and cooperative with physical examination. P.o. tolerant, having normal bowel and bladder movements. Constipation is improved. Patient status post debridement of her bilateral metatarsal vesicles by surgery. She stating that she is feeling better denies any pain, fever, chills, nausea, vomiting, diarrhea, constipation or any urinary symptoms. Reason For Visit: HYPERGLYCEMIA,HYPERKALEMIA Physical Exam Vital Signs: Temp Pulse Resp BP Pulse Ox 97.6 F 133 H 20 126/81 H 98 11/16/18 07:30 11/16/18 07:30 11/16/18 07:30 11/16/18 07:30 11/16/18 07:30 Intake & Output 11/15/18 11/16/18 11/17/18 06:59 06:59 06:59 Intake Total 1487 2092 Output Total 2355 2150 Balance -868 -58 Weight 129.1 kg 132 kg General appearance: PRESENT: no acute distress, well-developed, well-nourished Head exam: PRESENT: atraumatic, normocephalic Respiratory exam: PRESENT: clear to auscultation heron. ABSENT: rales, rhonchi, wheezes GI/Abdominal exam: PRESENT: normal bowel sounds, soft. ABSENT: distended, guarding, mass, organolmegaly, rebound, tenderness Extremities exam: PRESENT: full ROM, other - Bilateral metatarsal status post debridement of the vesicles by surgery.. ABSENT: calf tenderness, clubbing, pedal edema Neurological exam: PRESENT: alert, awake, oriented to person, oriented to place, oriented to time, oriented to situation, CN II-XII grossly intact. ABSENT: motor sensory deficit Results Laboratory Results: 11/16/18 05:10 11/16/18 05:10 11/16/18 11/16/18 05:10 05:10 WBC 10.9 H RBC 2.93 L Hgb 9.4 L Hct 26.9 L MCV 92 MCH 32.2 MCHC 35.1 RDW 13.5 Plt Count 222 Sodium 134.1 L Potassium 3.7 Chloride 97 L Carbon Dioxide 28 Anion Gap 9 BUN 51 H Creatinine 1.32 H Est GFR ( Amer) 48 L Est GFR (Non-Af Amer) 40 L Glucose 150 H Calcium 8.8 11/07/18 11/07/18 11/08/18 18:00 20:33 04:10 Creatine Kinase 48 CK-MB (CK-2) Troponin I < 0.012 < 0.012 11/08/18 11/08/18 11/08/18 04:10 10:10 10:10 Creatine Kinase 54 CK-MB (CK-2) 0.81 0.93 Troponin I 0.018 0.023 11/08/18 11/08/18 16:15 16:15 Creatine Kinase 59 CK-MB (CK-2) 0.86 Troponin I 0.027 Impressions: Abdomen/Pelvis CT 11/07/18 22:18 IMPRESSION: 1. No acute intra-abdominal pathology. 2. Diverticulosis without inflammatory findings. 3. L4-L5 posterior spinal fusion with hardware grossly intact. 4. 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 Chest X-Ray 11/09/18 00:00 IMPRESSION: Right-sided dialysis catheter has been placed and is in good position. Renal Ultrasound 11/09/18 00:00 IMPRESSION: Small left renal cyst. The bladder is decompressed by Aleman catheter. No other significant findings. Assessment & Plan - Diagnosis (1) Acute renal failure Is this a current diagnosis for this admission?: Yes Plan: Improved. Normal urine output. Creatinine back at baseline. Creatinine on admission 1.3. Highest creatinine 4.04. Creatinine 1.3 down from 1.6 Likely secondary to contrast-induced nephropathy. Patient had a CT abdomen with contrast on admission. 11/09/2018. Renal ultrasound small left renal cyst otherwise normal kidneys. 11/10/2018 patient received hemodialysis. Continue IV fluids guided by volume status. Strict in and out. BMP tomorrow. Nephrology following. Avoid nephrotoxic meds. (2) Toe cyanosis Is this a current diagnosis for this admission?: Yes Plan: Likely due to underlying Raynaud's or limited scleroderma. Status post debridement by surgery on 11/15/2018. Continue wound care. Anticentromere antibodies > 8. C3 175 C4 39. Anti-Eneida 1, SSA, SSB negative Rheumatoid factor LISETTE pending. Outpatient rheumatology follow-up. Discussion has been made with the patient for possible transfer to another [facility] where there are no other subspecialties but at this time she does not want to be transferred as her is here in [place] and it would be very difficult for him to visit her. Would like to be discharged home and follow-up with director underwriter sales as outpatient. 11/12/2018. Bilateral lower extremity arterial Doppler. No hemodynamically significant lesions in the right lower extremity only ,on duplex imaging, at rest. Moderate hemodynamically significant lesions in the left lower extremity only, on duplex imaging, at rest. Evaluated vessels on the right seem normal. On the left compromise in the deep and femoral arteries is noted. Suboptimal study. Vascular surgery has been consulted no intervention at this point. She is to start amlodipine and heparin drip. Patient has thrombocytopenia since admission she received heparin on admission while use fondaparinux instead of just in case this is heparin-induced thrombocytopenia. PF4 pending. (3) Morbid obesity with BMI of 50.0-59.9, adult Is this a current diagnosis for this admission?: Yes Plan: Diet and lifestyle modification. (4) Diabetes mellitus type 2 in obese Is this a current diagnosis for this admission?: Yes Plan: A1c on admission 10.7%. Fasting blood glucose 156. POC glucose 157-258. Diabetic diet, long-acting insulin, pre-meal insulin, adding a scale insulin, adjust dosage. Patient may benefit from oral hypoglycemics as outpatient after her kidney function has improved. (5) Hyperkalemia Is this a current diagnosis for this admission?: Yes Plan: Resolved. (6) Hypothyroidism Qualifiers: Hypothyroidism type: unspecified Qualified Code(s): E03.9 - Hypothyroidism, unspecified Is this a current diagnosis for this admission?: Yes Plan: 11/08/2018. TSH 2.74, free T4 1.53, free T3 2.62. Patient does not take thyroid replacement therapy at home. (7) Avascular necrosis Is this a current diagnosis for this admission?: Yes Plan: 11/07/2018. 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 Orthopedic surgery has been consulted. A surgical candidate at this point. Outpatient follow-up with orthopedic surgery. Continue supportive measures. (8) Thrombocytopenia Is this a current diagnosis for this admission?: Yes Plan: Resolved. Platelets on admission 299 dropped to 85 3 days later. She had received heparin subcutaneous for DVT prophylaxis. Will use fondaparinux instead of heparin while lying out heparin-induced thrombocytopenia. PLT4 pending. Repeat tomorrow. Monitor for bleeding.
[2018-11-16] MEDS ORDERED: DEXTROSE 40% GEL 15 GM TUBE PO PRN ×4 (16:21→16:23)
[2018-11-16] MEDS ORDERED: GLUCAGON,HUMAN RECOMB 1 MG INJ IM PRN ×2 (16:21→16:23)
[2018-11-16] MEDS ORDERED: DEXTROSE 50%-WATER 25 GM/50 ML DISP.SYRIN IV PRN ×4 (16:21→16:23)
--- NOTE | 2018-11-16 17:18 | PDOC PROGRESS REPORT ---
Subjective Progress Note for:: 11/16/18 Reason For Visit: Patient seen today. She is in good spirits. She has had some surgical interventions done on her foot blisters and they have relieved of the pressure and she is able to bear some weight. She denies any complaints of fever or chills. Labs and medications reviewed with the patient. It shows improved creatinine now down to 1.3. Good urine output. Physical Exam Vital Signs: Temp Pulse Resp BP Pulse Ox 97.6 F 83 20 126/81 H 98 11/16/18 07:30 11/16/18 14:00 11/16/18 07:30 11/16/18 07:30 11/16/18 07:30 Intake & Output 11/15/18 11/16/18 11/17/18 06:59 06:59 06:59 Intake Total 1487 2092 Output Total 2350 2150 Balance -868 -58 Weight 129.1 kg 132 kg General appearance: PRESENT: no acute distress Respiratory exam: PRESENT: clear to auscultation heron. ABSENT: crackles Cardiovascular exam: PRESENT: +S1, +S2, systolic murmur GI/Abdominal exam: PRESENT: normal bowel sounds, soft. ABSENT: organomegaly, tenderness Extremities exam: ABSENT: pedal edema Neurological exam: PRESENT: alert, awake, oriented to person, oriented to place Results Laboratory Results: 11/16/18 05:10 11/16/18 05:10 11/16/18 11/16/18 05:10 05:10 WBC 10.9 H RBC 2.93 L Hgb 9.4 L Hct 26.9 L MCV 92 MCH 32.2 MCHC 35.1 RDW 13.5 Plt Count 222 Sodium 134.1 L Potassium 3.7 Chloride 97 L Carbon Dioxide 28 Anion Gap 9 BUN 51 H Creatinine 1.32 H Est GFR ( Amer) 48 L Est GFR (Non-Af Amer) 40 L Glucose 150 H Calcium 8.8 11/07/18 11/07/18 11/08/18 18:00 20:33 04:10 Creatine Kinase 48 CK-MB (CK-2) Troponin I < 0.012 < 0.012 11/08/18 11/08/18 11/08/18 04:10 10:10 10:10 Creatine Kinase 54 CK-MB (CK-2) 0.81 0.93 Troponin I 0.018 0.023 11/08/18 11/08/18 16:15 16:15 Creatine Kinase 59 CK-MB (CK-2) 0.86 Troponin I 0.027 Impressions: Abdomen/Pelvis CT 11/07/18 22:18 IMPRESSION: 1. No acute intra-abdominal pathology. 2. Diverticulosis without inflammatory findings. 3. L4-L5 posterior spinal fusion with hardware grossly intact. 4. 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 Chest X-Ray 11/09/18 00:00 IMPRESSION: Right-sided dialysis catheter has been placed and is in good position. Renal Ultrasound 11/09/18 00:00 IMPRESSION: Small left renal cyst. The bladder is decompressed by Aleman catheter. No other significant findings. Assessment & Plan - Diagnosis (1) Acute kidney injury Is this a current diagnosis for this admission?: Yes Plan: Currently nonoliguric. She is continuing to make good amounts of urine as she is recovering nicely from her ATN injury.Labs were reviewed with her and it shows improving creatinine and down to 1.3.She is cleared renally. Her IJ catheter should be removed prior to discharge. (2) Contrast dye induced nephropathy Is this a current diagnosis for this admission?: Yes Plan: That led to her present KERI. She is recovering. Monitor. (3) Diabetes mellitus type 2 in obese Is this a current diagnosis for this admission?: Yes Plan: Advised tight control. (4) Hyponatremia Is this a current diagnosis for this admission?: Yes Plan: Mild. Advised fluid restriction. Will monitor. (5) Raynaud's disease Plan: Leading to bluish lazo discoloration of multiple toes in both feet.Sometimes she says it persist for days. Both hospitalist and surgeons are following.
[2018-11-16 18:41] LABS: AMORPHOUS SEDIMENT,URINE TRACE /HPF; APPEARANCE,URINE TURBID; BILIRUBIN,URINE NEGATIVE (NEGATIVE); COLOR,URINE YELLOW; GLUCOSE, URINE NEGATIVE (NEGATIVE); KETONES,URINE NEGATIVE (NEGATIVE); LEUKOCYTE ESTERASE,URINE LARGE (NEGATIVE); NITRITE,URINE NEGATIVE (NEGATIVE); PROTEIN,URINE NEGATIVE (NEGATIVE); URINE SPECIFIC GRAVITY 1.016; UROBILINOGEN,URINE NEGATIVE mg/dL (<2.0)
[2018-11-16] MEDS: FONDAPARINUX SODIUM INJ 10 MG/0.8 ML DISP.SYRIN SUBCUT SCH (21:41)
[2018-11-16] MEDS: INSULIN LISPRO 100 UNIT/ML 3 ML VIAL SUBCUT SCH (22:00)
[2018-11-16] MEDS ORDERED: INSULIN DETEMIR 100 UNIT/ML 3 ML PEN SUBCUT ONE (22:40)
--- NOTE | 2018-11-16 22:50 | XCELERA REPORT ---
[address] [address] Transthoracic Echocardiogram Report Name: ZAID DONALDSON Age: 73 yrs Gender: Female : 1945 Patient Status: Inpatient Patient Location: [address] [place], [place] [address] Study Date: 11/13/2018 03:53 PM Height: 63 in Weight: 286 lb BSA: 2.3 m2 Procedure: A two-dimensional transthoracic echocardiogram with color flow and Doppler was performed. The study was technically difficult with many images being suboptimal in quality. Study Quality: Poor. Reason For Study: peripheral ischemia Ordering Physician: FLORINA JUAREZ Performed By: Vincenzo Munguia Interpretation Summary The left ventricle is grossly normal size. There is normal left ventricular wall thickness. LV EF is > than 65% The left ventricular ejection fraction is within normal limits. Doppler measurements suggest impaired left ventricular relaxation, which is associated with grade I/IV or mild diastolic dysfunction Probably no regional wall motion abnormality There is no evidence of mitral valve prolapse. There is no mitral valve stenosis. The aortic valve is not well visualized secondary to technical limitations There is mild aortic stenosis There is a peak gradient of 17 mm of Hg. No aortic regurgitation is present. There is no tricuspid stenosis. There is a trace amount of tricuspid regurgitation Right ventricular systolic pressure is normal. RVSP is 20 to 25 mm of Hg , with RA mean of 5 to 10. There is no pericardial effusion. MMode/2D Measurements & Calculations RVDd: 3.5 cm LVIDd: 4.5 cm FS: 29.6 % Ao root diam: 2.8 cm IVSd: 0.73 cm LVIDs: 3.2 cm EDV(Teich): 93.8 ml Ao root area: 6.0 cm2 LVPWd: 0.76 cm ESV(Teich): 40.6 ml LA dimension: 4.3 cm EF(Teich): 56.7 % LVOT diam: 1.9 cm LVOT area: 2.9 cm2 Doppler Measurements & Calculations MV E max maykel: MV P1/2t max maykel: Ao V2 max: LV V1 max P.5 cm/sec 102.5 cm/sec 203.9 cm/sec 13.7 mmHg MV A max maykel: MV P1/2t: 65.7 msec Ao max PG: LV V1 mean P.0 cm/sec MVA(P1/2t): 3.3 cm2 16.6 mmHg 8.6 mmHg MV E/A: 0.59 MV dec slope: Ao V2 mean: LV V1 max: 145.7 cm/sec 185.1 cm/sec 457.0 cm/sec2 Ao mean PG: LV V1 mean: MV dec time: 0.39 sec 9.5 mmHg 135.5 cm/sec Ao V2 VTI: 36.9 cm LV V1 VTI: 30.1 cm BRYAN(I,D): 2.4 cm2 BRYAN(V,D): 2.6 cm2 MR max maykel: SV(LVOT): 87.4 ml PA V2 max: TR max maykel: 219.9 cm/sec 151.3 cm/sec 195.5 cm/sec MR max PG: PA max PG: TR max P.3 mmHg 9.2 mmHg 15.3 mmHg MV P1/2t-pr_phl: 65.7 msec Left Ventricle The left ventricle is grossly normal size. There is normal left ventricular wall thickness. LV EF is > than 65%. The left ventricular ejection fraction is within normal limits. Doppler measurements suggest impaired left ventricular relaxation, which is associated with grade I/IV or mild diastolic dysfunction. Probably no regional wall motion abnormality. Right Ventricle The right ventricle is not well visualized secondary to technical limitations. Atria Right atrium not well visualized secondary to technical limitations. The left atrium is mildly dilated. Mitral Valve There is no evidence of mitral valve prolapse. There is no mitral valve stenosis. There is a trace amount of mitral regurgitation. Aortic Valve The aortic valve is not well visualized secondary to technical limitations. There is mild aortic stenosis. There is a peak gradient of 17 mm of Hg. No aortic regurgitation is present. Tricuspid Valve There is no tricuspid stenosis. There is a trace amount of tricuspid regurgitation. Right ventricular systolic pressure is normal. RVSP is 20 to 25 mm of Hg , with RA mean of 5 to 10. Pulmonic Valve The pulmonic valve is not well visualized. Great Vessels The aortic root is not well visualized but is probably normal size. Effusions There is no pericardial effusion. : FLORINA JUAREZ > Ling George
[2018-11-17] MEDS ORDERED: BISACODYL 10 MG SUPP.RECT PR ONE (02:00)
[2018-11-17 05:16] LABS: HEMATOCRIT 28.8 % (36.0-47.0); HEMOGLOBIN 9.8 g/dL (12.0-15.5); MEAN CORPUSCULAR HEMOGLOBIN 31.2 pg (27.0-33.4); MEAN CORPUSCULAR HGB CONC 33.9 g/dL (32.0-36.0); MEAN CORPUSCULAR VOLUME 92 fl (80-97); PLATELET COUNT 287 10^3/uL (150-450); RED BLOOD COUNT 3.14 10^6/uL (3.72-5.28); RED CELL DISTRIBUTION WIDTH 13.7 % (11.5-14.0)
[2018-11-17 05:51] LABS: ABSOLUTE LYMPHOCYTES# (MANUAL) 1.3 10^3/uL (0.5-4.7); ABSOLUTE MONOCYTES # (MANUAL) 1.1 10^3/uL (0.1-1.4); BAND NEUTROPHILS % (MANUAL) 3 % (3-5); BASOPHILS % (MANUAL) 0 % (0-2); EOSINOPHILS % (MANUAL) 5 % (0-6); LYMPHOCYTES % (MANUAL) 12 % (13-45); MONOCYTES % (MANUAL) 10 % (3-13); PLATELET COMMENT ADEQUATE; RBC MORPHOLOGY COMMENT NORMO-CYTIC/CHROMIC; SEGMENTED NEUTROPHILS % (MAN) 70 % (42-78); TOTAL CELLS COUNTED 100; TOXIC GRANULATION SLIGHT
[2018-11-17 07:05] LABS: RHEUMATOID FACTOR LEVELS IGG 9.9 EU/ml (.)
[2018-11-17] MEDS ORDERED: INSULIN REG, HUMAN 100 UNIT/ML 3 ML VIAL (PYX) SUBCUT SCH (08:00)
[2018-11-17] MEDS ORDERED: INSULIN LISPRO 100 UNIT/ML 3 ML VIAL SUBCUT SCH (08:00)
[2018-11-17] MEDS: SUCRALFATE SUSP 1 GM/10 ML UDCUP PO SCH ×4 (08:19→22:57)
[2018-11-17] MEDS: METOCLOPRAMIDE HCL 10 MG TABLET PO SCH ×4 (08:19→22:57)
[2018-11-17] MEDS: INSULIN LISPRO 100 UNIT/ML 3 ML VIAL SUBCUT SCH ×6 (08:20→22:58)
[2018-11-17] MEDS: INSULIN DETEMIR 100 UNIT/ML 3 ML PEN SUBCUT SCH ×2 (09:48→22:58)
[2018-11-17] MEDS: POLYETHYLENE GLYCOL 3350 POWDER 17 GM/1 PACKET PO SCH (09:48)
[2018-11-17] MEDS: CALCIUM CARBONATE 500 MG TABLET PO SCH ×2 (09:48→17:26)
[2018-11-17] MEDS: FAMOTIDINE 20 MG TABLET PO SCH ×2 (09:48→22:56)
[2018-11-17] MEDS: DOCUSATE SODIUM 100 MG CAPSULE PO SCH ×2 (09:48→17:26)
[2018-11-17] MEDS: AMLODIPINE BESYLATE 5 MG TABLET PO SCH (09:48)
[2018-11-17] MEDS: SILVER SULFADIAZINE 1% CREAM 400 GM TP SCH ×2 (09:57→17:26)
[2018-11-17] MEDS: TRAMADOL HCL 50 MG TABLET PO PRN (10:04)
--- NOTE | 2018-11-17 13:06 | PDOC PROGRESS REPORT ---
Subjective Progress Note for:: 11/17/18 Subjective:: Overall the patient says she feels better and is looking forward to going home today or tomorrow. Reason For Visit: HYPERGLYCEMIA,HYPERKALEMIA The patient continues to be hospitalized for a number of issues including ischemia of the toes. Physical Exam Vital Signs: Temp Pulse Resp BP Pulse Ox 99.2 F 72 18 152/64 H 97 11/17/18 10:47 11/17/18 10:47 11/17/18 10:47 11/17/18 10:47 11/17/18 10:47 Intake & Output 11/16/18 11/17/18 11/18/18 06:59 06:59 06:59 Intake Total 2092 1595 Output Total 2150 975 Balance -58 620 Weight 132 kg 134 kg Additional comments: Constitutional: Well-developed well-nourished lady, morbidly obese body habitus. No apparent acute distress. Eyes: Mucous membranes pink and moist, pupils equal and reactive to light. Conjunctiva normal. Cornea normal. Respiratory: Normal respiratory effort. Skin: Pertinent for ischemic damage to the skin of the toes distally. Psychiatric: Judgment, memory, insight seem normal. Mood is pleasant and appropriate. Extremities: Upper extremities show normal range of movement. Pulses present noted to the radial arteries. Capillary refill normal. No cyanosis noted. No muscle wasting noted. Lower extremities show reduced range of movement. Pulses present excellent at the dorsalis pedis artery. Capillary refill normal. Dark ischemia and compromise of the distal toes blistering, now opened. No muscle wasting noted. Results Laboratory Results: 11/17/18 04:47 11/16/18 05:10 11/16/18 11/17/18 12:44 04:47 WBC 11.0 H RBC 3.14 L Hgb 9.8 L Hct 28.8 L MCV 92 MCH 31.2 MCHC 33.9 RDW 13.7 Plt Count 287 Seg Neutrophils % Not Reportable Lymphocytes % Not Reportable Monocytes % Not Reportable Eosinophils % Not Reportable Basophils % Not Reportable Absolute Neutrophils Not Reportable Absolute Lymphocytes Not Reportable Absolute Monocytes Not Reportable Absolute Eosinophils Not Reportable Absolute Basophils Not Reportable Urine Color YELLOW Urine Appearance TURBID Urine pH 5.0 Ur Specific War 1.016 Urine Protein NEGATIVE Urine Glucose (UA) NEGATIVE Urine Ketones NEGATIVE Urine Blood MODERATE H Urine Nitrite NEGATIVE Ur Leukocyte Esterase LARGE H Urine WBC (Auto) 24 Urine RBC (Auto) 1 11/07/18 11/07/18 11/08/18 18:00 20:33 04:10 Creatine Kinase 48 CK-MB (CK-2) Troponin I < 0.012 < 0.012 11/08/18 11/08/18 11/08/18 04:10 10:10 10:10 Creatine Kinase 54 CK-MB (CK-2) 0.81 0.93 Troponin I 0.018 0.023 11/08/18 11/08/18 16:15 16:15 Creatine Kinase 59 CK-MB (CK-2) 0.86 Troponin I 0.027 Impressions: Abdomen/Pelvis CT 11/07/18 22:18 IMPRESSION: 1. No acute intra-abdominal pathology. 2. Diverticulosis without inflammatory findings. 3. L4-L5 posterior spinal fusion with hardware grossly intact. 4. 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 Chest X-Ray 11/09/18 00:00 IMPRESSION: Right-sided dialysis catheter has been placed and is in good position. Renal Ultrasound 11/09/18 00:00 IMPRESSION: Small left renal cyst. The bladder is decompressed by Aleman catheter. No other significant findings. Assessment & Plan - Diagnosis (1) Toe cyanosis Is this a current diagnosis for this admission?: Yes (3) Acute kidney injury Is this a current diagnosis for this admission?: Yes (4) Diabetes mellitus type 2 in obese Is this a current diagnosis for this admission?: Yes (5) Morbid obesity with BMI of 50.0-59.9, adult Is this a current diagnosis for this admission?: Yes - Plan Summary Plan Summary: In this patient with confounding comorbidities including localized toe ischemia and apparent thrombocytopenia making anticoagulation difficult, evaluation in the tertiary institution has been brought up. She has considered this, and declines. It would be too much of a burden on her family. For the time being we can certainly continue managing the localized ischemia and blistering in the feet. I think use of the Silvadene to the debrided blisters on a daily basis should be satisfactory. Ultimately Betadine to the borderline to ischemic skin of the distal toes. Expectation is for eventual demarcation and amputation of toes versus tissue salvage. I would be happy to continue management of this as an outpatient when she goes home.
--- NOTE | 2018-11-17 14:44 | RADIOLOGY REPORT (SQ) ---
EXAM DESCRIPTION: VENOUS BILATERAL LOWER COMPLETED DATE/TIME: 11/17/2018 2:18 pm REASON FOR STUDY: BLE Swelling COMPARISON: None. TECHNIQUE: Dynamic and static lazo scale and color images acquired of both lower extremity venous sy stems. Selected spectral images acquired with additional compression and augmentation maneuvers. Imag es stored on PACS. LIMITATIONS: None. FINDINGS: RIGHT LEG COMMON FEMORAL AND FEMORAL: Thrombus present. No compressibility. Acute DVT. POPLITEAL: Not visualized. CALF VESSELS: Posterior tibial vein normal. GSV AND SSV: Not visualized. ANY DEEP VENOUS INSUFFICIENCY: Not evaluated. ANY EVIDENCE OF POPLITEAL CYST: No. OTHER: No other significant finding. LEFT LEG COMMON FEMORAL AND FEMORAL: Thrombus present. No compressibility. Acute DVT. POPLITEAL: Not visualized. CALF VESSELS: Posterior to will vein normal. GSV AND SSV: Not visualized. ANY DEEP VENOUS INSUFFICIENCY: Not evaluated. ANY EVIDENCE POPLITEAL CYST: No. OTHER: No other significant finding. IMPRESSION: Bilateral acute DVT of the common femoral and femoral veins. COMMENT: Preliminary report was called by the technologist to the referring clinician's office at th e time of the exam. TECHNICAL DOCUMENTATION: JOB ID: [id number] [employer]- All Rights Reserved Reading location - IP/workstation name: [email or web address]
--- NOTE | 2018-11-17 15:07 | PDOC PROGRESS REPORT ---
Subjective Progress Note for:: 11/17/18 Subjective:: No acute events overnight. She is very pleasant and cooperative with physical examination. P.o. tolerant, having normal bowel and bladder movements. Constipation is improved. Patient status post debridement of her bilateral metatarsal vesicles by surgery. She stating that she is feeling better denies any pain, fever, chills, nausea, vomiting, diarrhea, constipation or any urinary symptoms. Reason For Visit: HYPERGLYCEMIA,HYPERKALEMIA Physical Exam Vital Signs: Temp Pulse Resp BP Pulse Ox 99.2 F 72 18 152/64 H 97 11/17/18 10:47 11/17/18 10:47 11/17/18 10:47 11/17/18 10:47 11/17/18 10:47 Intake & Output 11/16/18 11/17/18 11/18/18 06:59 06:59 06:59 Intake Total 2092 1595 Output Total 2150 975 Balance -58 620 Weight 132 kg 134 kg General appearance: PRESENT: no acute distress, well-developed, well-nourished Head exam: PRESENT: atraumatic, normocephalic Respiratory exam: PRESENT: clear to auscultation heron. ABSENT: rales, rhonchi, wheezes Cardiovascular exam: PRESENT: RRR. ABSENT: diastolic murmur, rubs, systolic murmur Pulses: PRESENT: normal dorsalis pedis pul GI/Abdominal exam: PRESENT: normal bowel sounds, soft. ABSENT: distended, guarding, mass, organolmegaly, rebound, tenderness Extremities exam: PRESENT: full ROM, other - Bilateral metatarsals and medial dorsal feet status post I&D of necrotic tissue and blisters. Wound looks clean, signs of granulation tissue. No Signs of active infection.. ABSENT: calf tenderness, clubbing, pedal edema Neurological exam: PRESENT: alert, awake, oriented to person, oriented to place, oriented to time, oriented to situation, CN II-XII grossly intact. ABSENT: motor sensory deficit Results Laboratory Results: 11/17/18 04:47 11/16/18 05:10 11/16/18 11/17/18 12:44 04:47 WBC 11.0 H RBC 3.14 L Hgb 9.8 L Hct 28.8 L MCV 92 MCH 31.2 MCHC 33.9 RDW 13.7 Plt Count 287 Seg Neutrophils % Not Reportable Lymphocytes % Not Reportable Monocytes % Not Reportable Eosinophils % Not Reportable Basophils % Not Reportable Absolute Neutrophils Not Reportable Absolute Lymphocytes Not Reportable Absolute Monocytes Not Reportable Absolute Eosinophils Not Reportable Absolute Basophils Not Reportable Urine Color YELLOW Urine Appearance TURBID Urine pH 5.0 Ur Specific [place] 1.016 Urine Protein NEGATIVE Urine Glucose (UA) NEGATIVE Urine Ketones NEGATIVE Urine Blood MODERATE H Urine Nitrite NEGATIVE Ur Leukocyte Esterase LARGE H Urine WBC (Auto) 24 Urine RBC (Auto) 1 11/07/18 11/07/18 11/08/18 18:00 20:33 04:10 Creatine Kinase 48 CK-MB (CK-2) Troponin I < 0.012 < 0.012 11/08/18 11/08/18 11/08/18 04:10 10:10 10:10 Creatine Kinase 54 CK-MB (CK-2) 0.81 0.93 Troponin I 0.018 0.023 11/08/18 11/08/18 16:15 16:15 Creatine Kinase 59 CK-MB (CK-2) 0.86 Troponin I 0.027 Impressions: Abdomen/Pelvis CT 11/07/18 22:18 IMPRESSION: 1. No acute intra-abdominal pathology. 2. Diverticulosis without inflammatory findings. 3. L4-L5 posterior spinal fusion with hardware grossly intact. 4. 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 Chest X-Ray 11/09/18 00:00 IMPRESSION: Right-sided dialysis catheter has been placed and is in good position. Renal Ultrasound 11/09/18 00:00 IMPRESSION: Small left renal cyst. The bladder is decompressed by Aleman catheter. No other significant findings. Assessment & Plan - Diagnosis (1) DVT of axillary vein, acute bilateral Is this a current diagnosis for this admission?: Yes Plan: Bilateral acute DVT of the common femoral and femoral veins. Unfortunately patient allergic to Coumadin and had a significant drop when on heparin and she may have heparin-induced thrombocytopenia. She was switched on fondaparinux. Continue fondaparinux either bridge to warfarin or NOACs. Will discuss with patient. (2) Toe cyanosis Is this a current diagnosis for this admission?: Yes Plan: Likely due to underlying Raynaud's or limited scleroderma. Pt still does not want to be transferred to a tertiary center. Status post debridement by surgery on 11/15/2018. Continue wound care. Anticentromere antibodies > 8. C3 175 C4 39. Anti-Eneida 1, SSA, SSB negative Rheumatoid factor LISETTE pending. Outpatient rheumatology follow-up. Outpatient surgery follow-up. Discussion has been made with the patient for possible transfer to another tertiary center where there are no other subspecialties but at this time she does not want to be transferred as her is here in [place] and it would be very difficult for him to visit her. Would like to be discharged home and follow-up with nurse consultant as outpatient. 11/12/2018. Bilateral lower extremity arterial Doppler. No hemodynamically significant lesions in the right lower extremity only ,on duplex imaging, at rest. Moderate hemodynamically significant lesions in the left lower extremity only, on duplex imaging, at rest. Evaluated vessels on the right seem normal. On the left compromise in the deep and femoral arteries is noted. Suboptimal study. Vascular surgery has been consulted no intervention at this point. She is to start amlodipine and heparin drip. Patient has thrombocytopenia since admission she received heparin on admission while use fondaparinux instead of just in case this is heparin-induced thrombocytopenia. PF4 pending. (3) Acute renal failure Is this a current diagnosis for this admission?: Yes Plan: Improved. Normal urine output. Creatinine back at baseline. Creatinine on admission 1.3. Highest creatinine 4.04. Creatinine 1.3 down from 1.6 Likely secondary to contrast-induced nephropathy. Patient had a CT abdomen with contrast on admission. 11/09/2018. Renal ultrasound small left renal cyst otherwise normal kidneys. 11/10/2018 patient received hemodialysis. Continue IV fluids guided by volume status. Strict in and out. BMP tomorrow. Nephrology following. Avoid nephrotoxic meds. (4) Morbid obesity with BMI of 50.0-59.9, adult Is this a current diagnosis for this admission?: Yes (5) Diabetes mellitus type 2 in obese Is this a current diagnosis for this admission?: Yes (6) Hyperkalemia Is this a current diagnosis for this admission?: Yes (7) Hypothyroidism Qualifiers: Hypothyroidism type: unspecified Qualified Code(s): E03.9 - Hypothyroidism, unspecified Is this a current diagnosis for this admission?: Yes (8) Avascular necrosis Is this a current diagnosis for this admission?: Yes (9) Thrombocytopenia Is this a current diagnosis for this admission?: Yes Plan: Resolved. Platelets on admission 299 dropped to 85 3 days later. She had received heparin subcutaneous for DVT prophylaxis. Will use fondaparinux instead of heparin while lying out heparin-induced thrombocytopenia. PLT4 pending. Repeat tomorrow. Monitor for bleeding.
[2018-11-17] MEDS: FUROSEMIDE INJ/PF 20 MG/2 ML SDV IV SCH (22:56)
[2018-11-17] MEDS: FONDAPARINUX SODIUM INJ 10 MG/0.8 ML DISP.SYRIN SUBCUT SCH (22:57)
[2018-11-18 04:54] LABS: HEMOGLOBIN 9.6 g/dL (12.0-15.5); MEAN CORPUSCULAR HEMOGLOBIN 31.2 pg (27.0-33.4); MEAN CORPUSCULAR HGB CONC 34.2 g/dL (32.0-36.0); MEAN CORPUSCULAR VOLUME 91 fl (80-97); PLATELET COUNT 318 10^3/uL (150-450); RED BLOOD COUNT 3.07 10^6/uL (3.72-5.28); RED CELL DISTRIBUTION WIDTH 13.7 % (11.5-14.0); WHITE BLOOD COUNT 10.4 10^3/uL (4.0-10.5)
[2018-11-18 05:21] LABS: ALANINE AMINOTRANSFERASE 18 U/L (9-52); ALBUMIN 3.1 g/dL (3.5-5.0); ALKALINE PHOSPHATASE 93 U/L (38-126); ANION GAP 9 (5-19); ASPARTATE AMINO TRANSFERASE 21 U/L (14-36); BILIRUBIN,DIRECT 0.3 mg/dL (0.0-0.4); BILIRUBIN,TOTAL 0.4 mg/dL (0.2-1.3); BLOOD UREA NITROGEN 30 mg/dL (7-20); CALCIUM 9.1 mg/dL (8.4-10.2); CARBON DIOXIDE 26 mmol/L (22-30); CHLORIDE 100 mmol/L (98-107); GLUCOSE 114 mg/dL (75-110); POTASSIUM 3.8 mmol/L (3.6-5.0); SODIUM 134.9 mmol/L (137-145); TOTAL PROTEIN 5.8 g/dL (6.3-8.2)
[2018-11-18] MEDS: POLYETHYLENE GLYCOL 3350 POWDER 17 GM/1 PACKET PO SCH (09:57)
[2018-11-18] MEDS: FUROSEMIDE INJ/PF 20 MG/2 ML SDV IV SCH (09:57)
[2018-11-18] MEDS: AMLODIPINE BESYLATE 10 MG TABLET PO SCH (09:57)
[2018-11-18] MEDS: METOCLOPRAMIDE HCL 10 MG TABLET PO SCH ×4 (09:57→21:17)
[2018-11-18] MEDS: SUCRALFATE SUSP 1 GM/10 ML UDCUP PO SCH ×4 (09:57→21:16)
[2018-11-18] MEDS: CALCIUM CARBONATE 500 MG TABLET PO SCH ×2 (09:57→17:27)
[2018-11-18] MEDS: INSULIN DETEMIR 100 UNIT/ML 3 ML PEN SUBCUT SCH ×2 (09:58→21:16)
[2018-11-18] MEDS: DOCUSATE SODIUM 100 MG CAPSULE PO SCH ×2 (09:58→17:27)
[2018-11-18] MEDS: SILVER SULFADIAZINE 1% CREAM 400 GM TP SCH ×2 (09:58→17:27)
[2018-11-18] MEDS: FAMOTIDINE 20 MG TABLET PO SCH ×2 (09:58→21:17)
[2018-11-18] MEDS: INSULIN LISPRO 100 UNIT/ML 3 ML VIAL SUBCUT SCH ×7 (09:59→21:15)
[2018-11-18] MEDS ORDERED: AMLODIPINE BESYLATE 5 MG TABLET PO SCH (10:00)
--- NOTE | 2018-11-18 14:40 | PDOC PROGRESS REPORT ---
Subjective Progress Note for:: 11/18/18 Subjective:: No acute events overnight. She is very pleasant and cooperative with physical examination. P.o. tolerant, having normal bowel and bladder movements. Constipation has improved. Patient status post debridement of her bilateral metatarsal vesicles by surgery. She stating that she is feeling better denies any pain, fever, chills, nausea, vomiting, diarrhea, constipation or any urinary symptoms. Reason For Visit: HYPERGLYCEMIA,HYPERKALEMIA Physical Exam Vital Signs: Temp Pulse Resp BP Pulse Ox 98.5 F 80 18 128/50 H 99 11/18/18 10:53 11/18/18 10:53 11/18/18 10:53 11/18/18 10:53 11/18/18 10:53 Intake & Output 11/17/18 11/18/18 11/19/18 06:59 06:59 06:59 Intake Total 1595 1578 Output Total 975 Balance 620 1578 Weight 134 kg 131.9 kg General appearance: PRESENT: no acute distress, morbidly obese, well-developed, well-nourished Head exam: PRESENT: atraumatic, normocephalic Respiratory exam: PRESENT: clear to auscultation heron. ABSENT: rales, rhonchi, wheezes Cardiovascular exam: PRESENT: RRR. ABSENT: diastolic murmur, rubs, systolic murmur GI/Abdominal exam: PRESENT: normal bowel sounds, soft. ABSENT: distended, guarding, mass, organolmegaly, rebound, tenderness Extremities exam: PRESENT: full ROM, pedal edema. ABSENT: calf tenderness, clubbing Neurological exam: PRESENT: alert, awake, oriented to person, oriented to place, oriented to time, oriented to situation, CN II-XII grossly intact. ABSENT: motor sensory deficit Skin exam: PRESENT: dry, intact, warm. ABSENT: cyanosis, rash Results Laboratory Results: 11/18/18 04:24 11/18/18 04:24 11/18/18 11/18/18 04:24 04:24 WBC 10.4 RBC 3.07 L Hgb 9.6 L Hct 28.0 L MCV 91 MCH 31.2 MCHC 34.2 RDW 13.7 Plt Count 318 Sodium 134.9 L Potassium 3.8 Chloride 100 Carbon Dioxide 26 Anion Gap 9 BUN 30 H Creatinine 1.02 Est GFR ( Amer) > 60 Est GFR (Non-Af Amer) 53 L Glucose 114 H Calcium 9.1 Magnesium 1.5 L Total Bilirubin 0.4 AST 21 ALT 18 Alkaline Phosphatase 93 Total Protein 5.8 L Albumin 3.1 L 11/07/18 11/07/18 11/08/18 18:00 20:33 04:10 Creatine Kinase 48 CK-MB (CK-2) Troponin I < 0.012 < 0.012 11/08/18 11/08/18 11/08/18 04:10 10:10 10:10 Creatine Kinase 54 CK-MB (CK-2) 0.81 0.93 Troponin I 0.018 0.023 11/08/18 11/08/18 16:15 16:15 Creatine Kinase 59 CK-MB (CK-2) 0.86 Troponin I 0.027 Impressions: Abdomen/Pelvis CT 11/07/18 22:18 IMPRESSION: 1. No acute intra-abdominal pathology. 2. Diverticulosis without inflammatory findings. 3. L4-L5 posterior spinal fusion with hardware grossly intact. 4. 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 Chest X-Ray 11/09/18 00:00 IMPRESSION: Right-sided dialysis catheter has been placed and is in good position. Renal Ultrasound 11/09/18 00:00 IMPRESSION: Small left renal cyst. The bladder is decompressed by Aleman catheter. No other significant findings. Venous Doppler Study 11/17/18 10:14 IMPRESSION: Bilateral acute DVT of the common femoral and femoral veins. Assessment & Plan - Diagnosis (1) Deep vein thrombosis (DVT) of femoral vein of both lower extremities Qualifiers: Chronicity: acute Qualified Code(s): I82.413 - Acute embolism and thrombosis of femoral vein, bilateral Is this a current diagnosis for this admission?: Yes Plan: Bilateral acute DVT of the common femoral and femoral veins. 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 She was switched on fondaparinux. Continue fondaparinux and switch NOACs. Also patient she stating that she does have history of recurrent DVTs. She has an IVC filter in place for several years and was never removed. For her previous DVT episode she was placed on Xarelto. Wants to be placed on Xarelto again. (2) Swelling of both lower extremities Is this a current diagnosis for this admission?: Yes Plan: Improving. Likey localized venous insufficiency superimposed on underlying acute on chronic DVT No history of cirrhosis, normal renal function, negative proteinuria, protein to creatinine ratio 0.1. Left lower extremity 11/13/2018. 2D echo left ventricular ejection fraction more than 65%. Mild diastolic dysfunction. Continue Lasix p.o. guided by volume status. Monitor kidney function. (3) Toe cyanosis Is this a current diagnosis for this admission?: Yes Plan: Likely due to underlying Raynaud's or limited scleroderma. Pt still does not want to be transferred to a tertiary center still wants to discuss it with her . Status post debridement by surgery on 11/15/2018. Continue wound care. Anticentromere antibodies > 8. C3 175 C4 39. Anti-Eneida 1, SSA, SSB negative Rheumatoid factor LISETTE pending. Outpatient rheumatology follow-up. Outpatient surgery follow-up. Discussion has been made with the patient for possible transfer to another tertiary center where there are no other subspecialties but at this time she does not want to be transferred as her is here in [place] and it would be very difficult for him to visit her. Would like to be discharged home and follow-up with poultry slaughterer as outpatient. 11/12/2018. Bilateral lower extremity arterial Doppler. No hemodynamically significant lesions in the right lower extremity only ,on duplex imaging, at rest. Moderate hemodynamically significant lesions in the left lower extremity only, on duplex imaging, at rest. Evaluated vessels on the right seem normal. On the left compromise in the deep and femoral arteries is noted. Suboptimal study. Vascular surgery has been consulted no intervention at this point. She is to start amlodipine and heparin drip. Patient has thrombocytopenia since admission she received heparin on admission while use fondaparinux instead of just in case this is heparin-induced thrombocytopenia. PF4 pending. (4) Acute renal failure Is this a current diagnosis for this admission?: Yes Plan: Resolved.. Normal urine output. Creatinine on admission 1.3. Highest creatinine 4.04. Creatinine 1.3 down from 1.6 Likely secondary to contrast-induced nephropathy. Patient had a CT abdomen with contrast on admission. 11/09/2018. Renal ultrasound small left renal cyst otherwise normal kidneys. 11/10/2018 patient received hemodialysis. [facility] follow-up ephrology following. Avoid nephrotoxic meds. (5) Morbid obesity with BMI of 50.0-59.9, adult Is this a current diagnosis for this admission?: Yes Plan: Diet and lifestyle modification. (6) Diabetes mellitus type 2 in obese Is this a current diagnosis for this admission?: Yes Plan: Controlled. A1c on admission 10.7%. Diabetic diet, long-acting insulin, pre-meal insulin, adding a scale insulin, adjust dosage. Patient may benefit from oral hypoglycemics as outpatient after her kidney function has improved. (7) Hypothyroidism Qualifiers: Hypothyroidism type: unspecified Qualified Code(s): E03.9 - Hypothyroidism, unspecified Is this a current diagnosis for this admission?: Yes Plan: 11/08/2018. TSH 2.74, free T4 1.53, free T3 2.62. Patient does not take thyroid replacement therapy at home. (8) Avascular necrosis Is this a current diagnosis for this admission?: Yes Plan: 11/07/2018. 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 Orthopedic surgery has been consulted. A surgical candidate at this point. Outpatient follow-up with orthopedic surgery. Continue supportive measures. (9) Thrombocytopenia Is this a current diagnosis for this admission?: Yes Plan: Resolved. Platelets on admission 299 dropped to 85 3 days later. She had received heparin subcutaneous for DVT prophylaxis. Will use fondaparinux instead of heparin while lying out heparin-induced thrombocytopenia. PLT4 pending. Repeat tomorrow. Monitor for bleeding.
[2018-11-18] MEDS: TRAMADOL HCL 50 MG TABLET PO PRN (15:41)
[2018-11-18] MEDS: FONDAPARINUX SODIUM INJ 10 MG/0.8 ML DISP.SYRIN SUBCUT SCH (21:16)
[2018-11-18] MEDS: FUROSEMIDE INJ/PF 40 MG/4 ML SDV IV SCH (21:16)
[2018-11-19 05:19] LABS: ABSOLUTE BASOPHILS # (AUTO) 0.1 10^3/uL (0.0-0.2); ABSOLUTE EOSINOPHILS # (AUTO) 0.7 10^3/uL (0.0-0.6); ABSOLUTE LYMPHOCYTES (AUTO) 1.8 10^3/uL (0.5-4.7); ABSOLUTE MONOCYTES (AUTO) 0.7 10^3/uL (0.1-1.4); BASOPHILS % (AUTO) 1.3 % (0-2); HEMOGLOBIN 9.6 g/dL (12.0-15.5); LYMPHOCYTES % (AUTO) 15.8 % (13-45); MEAN CORPUSCULAR HEMOGLOBIN 31.1 pg (27.0-33.4); MEAN CORPUSCULAR HGB CONC 34.3 g/dL (32.0-36.0); MEAN CORPUSCULAR VOLUME 91 fl (80-97); MONOCYTES % (AUTO) 6.1 % (3-13); PLATELET COUNT 294 10^3/uL (150-450); RED BLOOD COUNT 3.08 10^6/uL (3.72-5.28); RED CELL DISTRIBUTION WIDTH 13.8 % (11.5-14.0); SEGMENTED NEUTROPHILS % (AUTO) 70.8 % (42-78); TOTAL CELLS COUNTED % (AUTO) 100 %; WHITE BLOOD COUNT 11.3 10^3/uL (4.0-10.5)
[2018-11-19 05:51] LABS: ALANINE AMINOTRANSFERASE 21 U/L (9-52); ALBUMIN 3.3 g/dL (3.5-5.0); ALKALINE PHOSPHATASE 99 U/L (38-126); ANION GAP 9 (5-19); ASPARTATE AMINO TRANSFERASE 31 U/L (14-36); BILIRUBIN,DIRECT 0.1 mg/dL (0.0-0.4); BILIRUBIN,TOTAL 0.4 mg/dL (0.2-1.3); BLOOD UREA NITROGEN 30 mg/dL (7-20); CALCIUM 9.1 mg/dL (8.4-10.2); CARBON DIOXIDE 27 mmol/L (22-30); CHLORIDE 100 mmol/L (98-107); GLUCOSE 90 mg/dL (75-110); POTASSIUM 3.6 mmol/L (3.6-5.0); SODIUM 136.2 mmol/L (137-145); TOTAL PROTEIN 6.3 g/dL (6.3-8.2)
[2018-11-19] MEDS: SUCRALFATE SUSP 1 GM/10 ML UDCUP PO SCH ×4 (09:54→22:50)
[2018-11-19] MEDS: INSULIN LISPRO 100 UNIT/ML 3 ML VIAL SUBCUT SCH ×7 (09:55→22:50)
[2018-11-19] MEDS: METOCLOPRAMIDE HCL 10 MG TABLET PO SCH ×4 (09:56→23:14)
[2018-11-19] MEDS: MORPHINE SULFATE 10 MG/ML INJ IV PRN ×2 (10:05→23:47)
[2018-11-19] MEDS: FAMOTIDINE 20 MG TABLET PO SCH ×2 (10:09→22:50)
[2018-11-19] MEDS: POLYETHYLENE GLYCOL 3350 POWDER 17 GM/1 PACKET PO SCH (10:09)
[2018-11-19] MEDS: DOCUSATE SODIUM 100 MG CAPSULE PO SCH ×2 (10:10→20:17)
[2018-11-19] MEDS: AMLODIPINE BESYLATE 10 MG TABLET PO SCH (10:10)
[2018-11-19] MEDS: FUROSEMIDE INJ/PF 40 MG/4 ML SDV IV SCH ×2 (10:10→20:17)
[2018-11-19] MEDS: CALCIUM CARBONATE 500 MG TABLET PO SCH ×2 (10:10→20:17)
[2018-11-19] MEDS: SILVER SULFADIAZINE 1% CREAM 400 GM TP SCH ×2 (10:11→20:18)
[2018-11-19] MEDS: INSULIN DETEMIR 100 UNIT/ML 3 ML PEN SUBCUT SCH ×2 (10:13→22:50)
--- NOTE | 2018-11-19 10:53 | PDOC PROGRESS REPORT ---
Subjective Progress Note for:: 11/19/18 Subjective:: No acute events overnight. She is very pleasant and cooperative with physical examination. P.o. tolerant, having normal bowel and bladder movements. Constipation is improved. Patient status post debridement of her bilateral metatarsal vesicles by surgery. She stating that she is feeling better denies any pain, fever, chills, nausea, vomiting, diarrhea, constipation or any urinary symptoms. Reason For Visit: HYPERGLYCEMIA,HYPERKALEMIA Physical Exam Vital Signs: Temp Pulse Resp BP Pulse Ox 98.0 F 76 18 108/42 L 96 11/19/18 07:19 11/19/18 07:19 11/19/18 07:19 11/19/18 07:19 11/19/18 07:19 Intake & Output 11/18/18 11/19/18 11/20/18 06:59 06:59 06:59 Intake Total 1578 2196 Output Total 1625 Balance 1578 571 Weight 131.9 kg 127.8 kg General appearance: PRESENT: no acute distress, well-developed, well-nourished Head exam: PRESENT: atraumatic, normocephalic Respiratory exam: PRESENT: clear to auscultation heron. ABSENT: rales, rhonchi, wheezes Cardiovascular exam: PRESENT: RRR. ABSENT: diastolic murmur, rubs, systolic murmur GI/Abdominal exam: PRESENT: normal bowel sounds, soft. ABSENT: distended, guarding, mass, organolmegaly, rebound, tenderness Extremities exam: PRESENT: +1 edema, other - Lateral metatarsal status post I&D by surgery for necrotic tissue. Dressing in place, looks clean. Palpable dorsalis pedis pulse. Neurological exam: PRESENT: alert, awake, oriented to person, oriented to place, oriented to time, oriented to situation, CN II-XII grossly intact. ABSENT: motor sensory deficit Results Laboratory Results: 11/19/18 05:00 11/19/18 05:00 11/19/18 11/19/18 05:00 05:00 WBC 11.3 H RBC 3.08 L Hgb 9.6 L Hct 28.0 L MCV 91 MCH 31.1 MCHC 34.3 RDW 13.8 Plt Count 294 Seg Neutrophils % 70.8 Lymphocytes % 15.8 Monocytes % 6.1 Eosinophils % 6.0 Basophils % 1.3 Absolute Neutrophils 8.0 Absolute Lymphocytes 1.8 Absolute Monocytes 0.7 Absolute Eosinophils 0.7 H Absolute Basophils 0.1 Sodium 136.2 L Potassium 3.6 Chloride 100 Carbon Dioxide 27 Anion Gap 9 BUN 30 H Creatinine 1.12 Est GFR ( Amer) 58 L Est GFR (Non-Af Amer) 48 L Glucose 90 Calcium 9.1 Magnesium 1.4 L Total Bilirubin 0.4 AST 31 ALT 21 Alkaline Phosphatase 99 Total Protein 6.3 Albumin 3.3 L 11/15/18 18:45 Foot - Blister Gram Stain - Final 11/15/18 18:45 Foot - Blister Wound Culture - Final Staphylococcus Lugdunensis Skin Sheela 11/07/18 11/07/18 11/08/18 18:00 20:33 04:10 Creatine Kinase 48 CK-MB (CK-2) Troponin I < 0.012 < 0.012 11/08/18 11/08/18 11/08/18 04:10 10:10 10:10 Creatine Kinase 54 CK-MB (CK-2) 0.81 0.93 Troponin I 0.018 0.023 11/08/18 11/08/18 16:15 16:15 Creatine Kinase 59 CK-MB (CK-2) 0.86 Troponin I 0.027 Impressions: Abdomen/Pelvis CT 11/07/18 22:18 IMPRESSION: 1. No acute intra-abdominal pathology. 2. Diverticulosis without inflammatory findings. 3. L4-L5 posterior spinal fusion with hardware grossly intact. 4. 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 Chest X-Ray 11/09/18 00:00 IMPRESSION: Right-sided dialysis catheter has been placed and is in good position. Renal Ultrasound 11/09/18 00:00 IMPRESSION: Small left renal cyst. The bladder is decompressed by Aleman catheter. No other significant findings. Venous Doppler Study 11/17/18 10:14 IMPRESSION: Bilateral acute DVT of the common femoral and femoral veins. Assessment & Plan - Diagnosis (1) Deep vein thrombosis (DVT) of femoral vein of both lower extremities Qualifiers: Chronicity: acute Qualified Code(s): I82.413 - Acute embolism and thrombosis of femoral vein, bilateral Is this a current diagnosis for this admission?: Yes (2) Toe cyanosis Is this a current diagnosis for this admission?: Yes Plan: Likely due to underlying Raynaud's or limited scleroderma. Status post debridement by surgery on 11/15/2018. Continue wound care. Anticentromere antibodies > 8. C3 175 C4 39. Anti-Eneida 1, SSA, SSB negative Rheumatoid factor LISETTE pending. Outpatient rheumatology follow-up. Discussion has been made with the patient for possible transfer to another tertiary center where there are no other subspecialties but at this time she does not want to be transferred as her is here in [place] and it would be very difficult for him to visit her. Would like to be discharged home and follow-up with warehouse packaging supervisor as outpatient. 11/12/2018. Hemodynamically significant lesions in the right lower extremity only on depressive imaging, at rest. Moderate hemodynamically significant lesions in the left lower extremity only on duplex imaging at rest. Vascular surgery has been consulted. She is to start amlodipine and heparin drip. Patient has thrombocytopenia since admission she received heparin on admission while use fondaparinux instead of just in case this is heparin-induced thrombocytopenia. PF4 pending. (3) Acute renal failure Is this a current diagnosis for this admission?: Yes Plan: Resolved. Normal urine output. Creatinine back at baseline. Creatinine on admission 1.3. Highest creatinine 4.04. Likely secondary to contrast-induced nephropathy. Patient had a CT abdomen with contrast on admission. 11/09/2018. Renal ultrasound small left renal cyst otherwise normal kidneys. 11/10/2018 patient received hemodialysis. Avoid nephrotoxic meds. (4) Morbid obesity with BMI of 50.0-59.9, adult Is this a current diagnosis for this admission?: Yes Plan: Diet and lifestyle modification. (5) Diabetes mellitus type 2 in obese Is this a current diagnosis for this admission?: Yes Plan: Controlled. A1c on admission 10.7%. Diabetic diet, long-acting insulin, pre-meal insulin, adding a scale insulin, adjust dosage. Patient may benefit from oral hypoglycemics as outpatient after her kidney function has improved. (6) Hypothyroidism Qualifiers: Hypothyroidism type: unspecified Qualified Code(s): E03.9 - Hypothyroidism, unspecified Is this a current diagnosis for this admission?: Yes (7) Avascular necrosis Is this a current diagnosis for this admission?: Yes (8) Hyperkalemia Is this a current diagnosis for this admission?: Yes Plan: Resolved.
--- NOTE | 2018-11-19 10:56 | PDOC PROGRESS REPORT ---
Subjective Progress Note for:: 11/19/18 Subjective:: No acute events overnight. She is very pleasant and cooperative with physical examination. P.o. tolerant, having normal bowel and bladder movements. Constipation has improved. Patient status post debridement of her bilateral metatarsal vesicles by surgery. She stating that she is feeling better denies any pain, fever, chills, nausea, vomiting, diarrhea, constipation or any urinary symptoms Reason For Visit: HYPERGLYCEMIA,HYPERKALEMIA Physical Exam Vital Signs: Temp Pulse Resp BP Pulse Ox 98.0 F 76 18 108/42 L 96 11/19/18 07:19 11/19/18 07:19 11/19/18 07:19 11/19/18 07:19 11/19/18 07:19 Intake & Output 11/18/18 11/19/18 11/20/18 06:59 06:59 06:59 Intake Total 1578 2196 Output Total 1625 Balance 1578 571 Weight 131.9 kg 127.8 kg Results Laboratory Results: 11/19/18 05:00 11/19/18 05:00 11/19/18 11/19/18 05:00 05:00 WBC 11.3 H RBC 3.08 L Hgb 9.6 L Hct 28.0 L MCV 91 MCH 31.1 MCHC 34.3 RDW 13.8 Plt Count 294 Seg Neutrophils % 70.8 Lymphocytes % 15.8 Monocytes % 6.1 Eosinophils % 6.0 Basophils % 1.3 Absolute Neutrophils 8.0 Absolute Lymphocytes 1.8 Absolute Monocytes 0.7 Absolute Eosinophils 0.7 H Absolute Basophils 0.1 Sodium 136.2 L Potassium 3.6 Chloride 100 Carbon Dioxide 27 Anion Gap 9 BUN 30 H Creatinine 1.12 Est GFR ( Amer) 58 L Est GFR (Non-Af Amer) 48 L Glucose 90 Calcium 9.1 Magnesium 1.4 L Total Bilirubin 0.4 AST 31 ALT 21 Alkaline Phosphatase 99 Total Protein 6.3 Albumin 3.3 L 11/15/18 18:45 Foot - Blister Gram Stain - Final 11/15/18 18:45 Foot - Blister Wound Culture - Final Staphylococcus Lugdunensis Skin Sheela 11/07/18 11/07/18 11/08/18 18:00 20:33 04:10 Creatine Kinase 48 CK-MB (CK-2) Troponin I < 0.012 < 0.012 11/08/18 11/08/18 11/08/18 04:10 10:10 10:10 Creatine Kinase 54 CK-MB (CK-2) 0.81 0.93 Troponin I 0.018 0.023 11/08/18 11/08/18 16:15 16:15 Creatine Kinase 59 CK-MB (CK-2) 0.86 Troponin I 0.027 Impressions: Abdomen/Pelvis CT 11/07/18 22:18 IMPRESSION: 1. No acute intra-abdominal pathology. 2. Diverticulosis without inflammatory findings. 3. L4-L5 posterior spinal fusion with hardware grossly intact. 4. 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 Chest X-Ray 11/09/18 00:00 IMPRESSION: Right-sided dialysis catheter has been placed and is in good position. Renal Ultrasound 11/09/18 00:00 IMPRESSION: Small left renal cyst. The bladder is decompressed by Aleman catheter. No other significant findings. Venous Doppler Study 11/17/18 10:14 IMPRESSION: Bilateral acute DVT of the common femoral and femoral veins. Assessment & Plan - Diagnosis (1) Deep vein thrombosis (DVT) of femoral vein of both lower extremities Qualifiers: Chronicity: acute Qualified Code(s): I82.413 - Acute embolism and thrombosis of femoral vein, bilateral Is this a current diagnosis for this admission?: Yes Plan: Bilateral acute DVT of the common femoral and femoral veins. Switch to Xarelto 15 mg p.o. twice daily times 21 days 1020 p.o. daily. Follow- up with PCP. 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 She was switched on fondaparinux. Continue fondaparinux and switch NOACs. Also patient she stating that she does have history of recurrent DVTs. She has an IVC filter in place for several years and was never removed. For her previous DVT episode she was placed on Xarelto. Wants to be placed on X arelto again. (2) Swelling of both lower extremities Is this a current diagnosis for this admission?: Yes Plan: Improving. Likey localized venous insufficiency superimposed on underlying acute on chronic DVT No history of cirrhosis, normal renal function, negative proteinuria, protein to creatinine ratio 0.1. Left lower extremity 11/13/2018. 2D echo left ventricular ejection fraction more than 65%. Mild diastolic dysfunction. Continue Lasix p.o. guided by volume status. Monitor kidney function. (3) Toe cyanosis Is this a current diagnosis for this admission?: Yes Plan: Likely due to underlying Raynaud's or limited scleroderma. Pt still does not want to be transferred to a tertiary center still wants to discuss it with her . Status post debridement by surgery on 11/15/2018. Continue wound care. Anticentromere antibodies > 8. C3 175 C4 39. Anti-Eneida 1, SSA, SSB negative Rheumatoid factor LISETTE pending. Outpatient rheumatology follow-up. Outpatient surgery follow-up. Discussion has been made with the patient for possible transfer to another tertiary center where there are no other subspecialties but at this time she does not want to be transferred as her is here in [place] and it would be very difficult for him to visit her. Would like to be discharged home and follow-up with [facility] as outpatient. 11/12/2018. Bilateral lower extremity arterial Doppler. No hemodynamically significant lesions in the right lower extremity only ,on duplex imaging, at rest. Moderate hemodynamically significant lesions in the left lower extremity only, on duplex imaging, at rest. Evaluated vessels on the right seem normal. On the left compromise in the deep and femoral arteries is noted. Suboptimal study. Vascular surgery has been consulted no intervention at this point. She is to start amlodipine and heparin drip. Patient has thrombocytopenia since admission she received heparin on admission while use fondaparinux instead of just in case this is heparin-induced thrombocytopenia. PF4 pending. (4) Acute renal failure Is this a current diagnosis for this admission?: Yes Plan: Resolved.. Normal urine output. Creatinine on admission 1.3. Highest creatinine 4.04. Likely secondary to contrast-induced nephropathy. Patient had a CT abdomen with contrast on admission. 11/09/2018. Renal ultrasound small left renal cyst otherwise normal kidneys. 11/10/2018 patient received hemodialysis. (5) Morbid obesity with BMI of 50.0-59.9, adult Is this a current diagnosis for this admission?: Yes Plan: Diet and lifestyle modification. (6) Diabetes mellitus type 2 in obese Is this a current diagnosis for this admission?: Yes Plan: Controlled. A1c on admission 10.7%. Diabetic diet, long-acting insulin, pre-meal insulin, adding a scale insulin, adjust dosage. Patient may benefit from oral hypoglycemics as outpatient after her kidney function has improved. (7) Hypothyroidism Qualifiers: Hypothyroidism type: unspecified Qualified Code(s): E03.9 - Hypothyroidism, unspecified Is this a current diagnosis for this admission?: Yes Plan: 11/08/2018. TSH 2.74, free T4 1.53, free T3 2.62. Patient does not take thyroid replacement therapy at home. (8) Avascular necrosis Is this a current diagnosis for this admission?: Yes Plan: 11/07/2018. 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 Orthopedic surgery has been consulted. A surgical candidate at this point. Outpatient follow-up with orthopedic surgery. Continue supportive measures. (9) Thrombocytopenia Is this a current diagnosis for this admission?: Yes Plan: Resolved. Platelets on admission 299 dropped to 85 3 days later. She had received heparin subcutaneous for DVT prophylaxis. Will use fondaparinux instead of heparin while lying out heparin-induced thrombocytopenia. PLT4 pending. Repeat tomorrow. Monitor for bleeding.
[2018-11-19] MEDS: TRAMADOL HCL 50 MG TABLET PO PRN (12:13)
[2018-11-19] MEDS ORDERED: FENTANYL CITRATE INJ/PF 100 MCG/2 ML AMPUL IV ONE (15:00)
[2018-11-19] MEDS: RIVAROXABAN 15 MG TABLET PO SCH (20:17)
[2018-11-19] MEDS: FONDAPARINUX SODIUM INJ 10 MG/0.8 ML DISP.SYRIN SUBCUT SCH (22:50)
[2018-11-19] MEDS: CLINDAMYCIN HCL 150 MG CAPSULE PO SCH (22:50)
[2018-11-20] MEDS: CLINDAMYCIN HCL 150 MG CAPSULE PO SCH (05:50)
[2018-11-20] MEDS: INSULIN LISPRO 100 UNIT/ML 3 ML VIAL SUBCUT SCH ×7 (08:58→23:41)
[2018-11-20] MEDS: INSULIN DETEMIR 100 UNIT/ML 3 ML PEN SUBCUT SCH ×2 (09:36→23:42)
[2018-11-20] MEDS: CALCIUM CARBONATE 500 MG TABLET PO SCH ×2 (09:37→17:37)
[2018-11-20] MEDS: AMLODIPINE BESYLATE 10 MG TABLET PO SCH (09:37)
[2018-11-20] MEDS: SUCRALFATE SUSP 1 GM/10 ML UDCUP PO SCH ×4 (09:37→23:29)
[2018-11-20] MEDS: DOCUSATE SODIUM 100 MG CAPSULE PO SCH ×2 (09:37→17:37)
[2018-11-20] MEDS: SILVER SULFADIAZINE 1% CREAM 400 GM TP SCH ×2 (09:37→17:37)
[2018-11-20] MEDS: FUROSEMIDE INJ/PF 40 MG/4 ML SDV IV SCH ×2 (09:37→17:37)
[2018-11-20] MEDS: POLYETHYLENE GLYCOL 3350 POWDER 17 GM/1 PACKET PO SCH ×2 (09:37→09:51)
[2018-11-20] MEDS: METOCLOPRAMIDE HCL 10 MG TABLET PO SCH ×4 (09:37→23:29)
[2018-11-20] MEDS: FAMOTIDINE 20 MG TABLET PO SCH ×2 (09:37→23:29)
[2018-11-20] MEDS: RIVAROXABAN 15 MG TABLET PO SCH ×2 (09:37→17:37)
[2018-11-20] MEDS ORDERED: FENTANYL CITRATE INJ/PF 100 MCG/2 ML AMPUL IV ONE (11:00)
--- NOTE | 2018-11-20 11:34 | PDOC PROGRESS REPORT ---
Subjective Progress Note for:: 11/20/18 Subjective:: No acute events overnight. She is very pleasant and cooperative with physical examination. P.o. tolerant, having normal bowel and bladder movements. Constipation has improved. Patient status post debridement of her bilateral metatarsal vesicles by surgery. She stating that she is feeling better denies any pain, fever, chills, nausea, vomiting, diarrhea, constipation or any urinary symptoms Reason For Visit: HYPERGLYCEMIA,HYPERKALEMIA Physical Exam Vital Signs: Temp Pulse Resp BP Pulse Ox 98.5 F 62 12 139/52 H 95 11/20/18 04:25 11/20/18 07:00 11/20/18 04:25 11/20/18 04:25 11/20/18 04:25 Intake & Output 11/19/18 11/20/18 11/21/18 06:59 06:59 06:59 Intake Total 2196 2492 Output Total 1625 2000 Balance 571 492 Weight 127.8 kg 130.6 kg General appearance: PRESENT: no acute distress, obese, well-developed, well- nourished Head exam: PRESENT: atraumatic, normocephalic Neck exam: ABSENT: carotid bruit, JVD, lymphadenopathy, thyromegaly Respiratory exam: PRESENT: clear to auscultation heron. ABSENT: rales, rhonchi, wheezes Cardiovascular exam: PRESENT: RRR. ABSENT: diastolic murmur, rubs, systolic murmur GI/Abdominal exam: PRESENT: normal bowel sounds, soft. ABSENT: distended, guarding, mass, organolmegaly, rebound, tenderness Extremities exam: PRESENT: +1 edema, other - Bilateral metatarsal status post I&D, granulation on bilateral dorsal aspect of feet, metatarsal still with necrotic tissue. No sign of active infection, discharge or foul smell Results Laboratory Results: 11/19/18 05:00 11/19/18 05:00 11/15/18 18:45 Foot - Blister Gram Stain - Final 11/15/18 18:45 Foot - Blister Wound Culture - Final Staphylococcus Lugdunensis Skin Sheela 11/07/18 11/07/18 11/08/18 18:00 20:33 04:10 Creatine Kinase 48 CK-MB (CK-2) Troponin I < 0.012 < 0.012 11/08/18 11/08/1819 04:10 10:10 10:10 Creatine Kinase 54 CK-MB (CK-2) 0.81 0.93 Troponin I 0.018 0.023 11/08/18 11/08/18 16:15 16:15 Creatine Kinase 59 CK-MB (CK-2) 0.86 Troponin I 0.027 Impressions: Abdomen/Pelvis CT 11/07/18 22:18 IMPRESSION: 1. No acute intra-abdominal pathology. 2. Diverticulosis without inflammatory findings. 3. L4-L5 posterior spinal fusion with hardware grossly intact. 4. 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 Chest X-Ray 11/09/18 00:00 IMPRESSION: Right-sided dialysis catheter has been placed and is in good position. Renal Ultrasound 11/09/18 00:00 IMPRESSION: Small left renal cyst. The bladder is decompressed by Aleman catheter. No other significant findings. Venous Doppler Study 11/17/18 10:14 IMPRESSION: Bilateral acute DVT of the common femoral and femoral veins. Assessment & Plan - Diagnosis (1) Deep vein thrombosis (DVT) of femoral vein of both lower extremities Qualifiers: Chronicity: acute Qualified Code(s): I82.413 - Acute embolism and thrombosis of femoral vein, bilateral Is this a current diagnosis for this admission?: Yes Plan: Bilateral acute DVT of the common femoral and femoral veins. Switch to Xarelto 15 mg p.o. twice daily times 21 days 1020 p.o. daily. Follow- up with PCP. 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 She was switched on fondaparinux. Continue fondaparinux and switch NOACs. Also patient she stating that she does have history of recurrent DVTs. She has an IVC filter in place for several years and was never removed. For her previous DVT episode she was placed on Xarelto. Wants to be placed on Xarelto again. (2) Wound infection after surgery Is this a current diagnosis for this admission?: Yes Plan: Bilateral metatarsal. Patient had presented with cyanosis and necrosis of her bilateral metatarsals, initially she was diagnosed with ischemic limb Osito was consulted who did an arterial Doppler of both lower extremity with no significant abnormalities. Patient's metatarsal necrosis progressed to bullae in the dorsal medial aspect of bilateral feet which was debrided by surgery on 11/15/2018. Patient continued on wound care and a swab was sent on 11/19/2018 came back positive for Staphylococcus Lugdunensis resistant to Augmentin, cefazolin, clindamycin, sensitive to Bactrim and vancomycin Initially patient was started on doxycycline but switched to Bactrim after susceptibility was available. Please monitor for kidney function as patient had kidney failure on this admission. BMP daily, wound care. (3) Swelling of both lower extremities Is this a current diagnosis for this admission?: Yes Plan: Improving. Likey localized venous insufficiency superimposed on underlying acute on chronic DVT No history of cirrhosis, normal renal function, negative proteinuria, protein to creatinine ratio 0.1. Left lower extremity 11/13/2018. 2D echo left ventricular ejection fraction more than 65%. Mild diastolic dysfunction. Continue Lasix p.o. guided by volume status. Monitor kidney function. (4) Toe cyanosis Is this a current diagnosis for this admission?: Yes Plan: Likely due to underlying Raynaud's or limited scleroderma. Pt still does not want to be transferred to a tertiary center still wants to discuss it with her . Since I started my shift she has been refusing to be transferred to a tertiary center because it will be too inconvenient for her . Had a conversation with and herself together and they are both in agreement. Status post debridement by surgery on 11/15/2018. Continue wound care. Anticentromere antibodies > 8. C3 175 C4 39. Anti-Eneida 1, SSA, SSB negative Rheumatoid factor LISETTE pending. Outpatient rheumatology follow-up. Outpatient surgery follow-up. Discussion has been made with the patient for possible transfer to another tertiary center where there are no other subspecialties but at this time she does not want to be transferred as her is here in [place] and it would be very difficult for him to visit her. Would like to be discharged home and follow-up with [facility] as outpatient. 11/12/2018. Bilateral lower extremity arterial Doppler. No hemodynamically significant lesions in the right lower extremity only ,on duplex imaging, at rest. Moderate hemodynamically significant lesions in the left lower extremity only, on duplex imaging, at rest. Evaluated vessels on the right seem normal. On the left compromise in the deep and femoral arteries is noted. Suboptimal study. Vascular surgery has been consulted no intervention at this point. She is to start amlodipine and heparin drip. Patient has thrombocytopenia since admission she received heparin on admission while use fondaparinux instead of just in case this is heparin-induced thrombocytopenia. PF4 pending. (5) Acute renal failure Is this a current diagnosis for this admission?: Yes Plan: Resolved.. Normal urine output. Creatinine on admission 1.3. Highest creatinine 4.04. Likely secondary to contrast-induced nephropathy. Patient had a CT abdomen with contrast on admission. 11/09/2018. Renal ultrasound small left renal cyst otherwise normal kidneys. 11/10/2018 patient received hemodialysis. (6) Morbid obesity with BMI of 50.0-59.9, adult Is this a current diagnosis for this admission?: Yes Plan: Diet and lifestyle modification. (7) Diabetes mellitus type 2 in obese Is this a current diagnosis for this admission?: Yes Plan: Controlled. A1c on admission 10.7%. Diabetic diet, long-acting insulin, pre-meal insulin, adding a scale insulin, adjust dosage. Patient may benefit from oral hypoglycemics as outpatient after her kidney function has improved. (8) Hypothyroidism Qualifiers: Hypothyroidism type: unspecified Qualified Code(s): E03.9 - Hypothyroidism, unspecified Is this a current diagnosis for this admission?: Yes Plan: 11/08/2018. TSH 2.74, free T4 1.53, free T3 2.62. Patient does not take thyroid replacement therapy at home. (9) Avascular necrosis Is this a current diagnosis for this admission?: Yes Plan: 11/07/2018. 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 Orthopedic surgery has been consulted. A surgical candidate at this point. Ou tpatient follow-up with orthopedic surgery. Continue supportive measures. (10) Thrombocytopenia Is this a current diagnosis for this admission?: Yes Plan: Resolved. Platelets on admission 299 dropped to 85 3 days later. She had received heparin subcutaneous for DVT prophylaxis. Will use fondaparinux instead of heparin while lying out heparin-induced thrombocytopenia. PLT4 pending. Repeat tomorrow. Monitor for bleeding.
[2018-11-20] MEDS: MORPHINE SULFATE 10 MG/ML INJ IV PRN (16:09)
[2018-11-20] MEDS: SULFAMETHOXAZOLE/TRIMETHOPRIM 800-160 MG TABLET PO SCH (23:29)
[2018-11-21 05:00] LABS: HEMATOCRIT 28.7 % (36.0-47.0); HEMOGLOBIN 9.8 g/dL (12.0-15.5); MEAN CORPUSCULAR HEMOGLOBIN 31.3 pg (27.0-33.4); MEAN CORPUSCULAR HGB CONC 34.2 g/dL (32.0-36.0); MEAN CORPUSCULAR VOLUME 91 fl (80-97); PLATELET COUNT 402 10^3/uL (150-450); RED BLOOD COUNT 3.14 10^6/uL (3.72-5.28); RED CELL DISTRIBUTION WIDTH 13.6 % (11.5-14.0); WHITE BLOOD COUNT 10.4 10^3/uL (4.0-10.5)
[2018-11-21] MEDS ORDERED: DIPHENHYDRAMINE HCL 50 MG/ML VIAL IV PRN (05:03)
[2018-11-21 05:41] LABS: ALANINE AMINOTRANSFERASE 20 U/L (9-52); ALBUMIN 3.3 g/dL (3.5-5.0); ALKALINE PHOSPHATASE 100 U/L (38-126); ANION GAP 10 (5-19); ASPARTATE AMINO TRANSFERASE 21 U/L (14-36); BILIRUBIN,DIRECT 0.1 mg/dL (0.0-0.4); BILIRUBIN,TOTAL 0.3 mg/dL (0.2-1.3); BLOOD UREA NITROGEN 28 mg/dL (7-20); CALCIUM 9.1 mg/dL (8.4-10.2); CARBON DIOXIDE 30 mmol/L (22-30); CHLORIDE 96 mmol/L (98-107); GLUCOSE 122 mg/dL (75-110); POTASSIUM 3.8 mmol/L (3.6-5.0); SODIUM 135.5 mmol/L (137-145); TOTAL PROTEIN 5.8 g/dL (6.3-8.2)
[2018-11-21] MEDS: RIVAROXABAN 15 MG TABLET PO SCH ×2 (08:19→17:25)
[2018-11-21] MEDS: SUCRALFATE SUSP 1 GM/10 ML UDCUP PO SCH ×4 (08:19→21:59)
[2018-11-21] MEDS: METOCLOPRAMIDE HCL 10 MG TABLET PO SCH ×4 (08:19→21:59)
[2018-11-21] MEDS: INSULIN LISPRO 100 UNIT/ML 3 ML VIAL SUBCUT SCH ×7 (08:20→21:57)
[2018-11-21] MEDS: DOCUSATE SODIUM 100 MG CAPSULE PO SCH ×2 (09:23→17:25)
[2018-11-21] MEDS: AMLODIPINE BESYLATE 10 MG TABLET PO SCH (09:23)
[2018-11-21] MEDS: FUROSEMIDE INJ/PF 40 MG/4 ML SDV IV SCH ×2 (09:23→17:26)
[2018-11-21] MEDS: FAMOTIDINE 20 MG TABLET PO SCH ×2 (09:23→21:59)
[2018-11-21] MEDS: CALCIUM CARBONATE 500 MG TABLET PO SCH ×2 (09:24→17:25)
[2018-11-21] MEDS: SILVER SULFADIAZINE 1% CREAM 400 GM TP SCH ×2 (09:24→17:27)
[2018-11-21] MEDS: SULFAMETHOXAZOLE/TRIMETHOPRIM 800-160 MG TABLET PO SCH ×2 (09:24→21:59)
[2018-11-21] MEDS: POLYETHYLENE GLYCOL 3350 POWDER 17 GM/1 PACKET PO SCH (09:25)
[2018-11-21] MEDS: INSULIN DETEMIR 100 UNIT/ML 3 ML PEN SUBCUT SCH ×2 (09:25→21:59)
--- NOTE | 2018-11-21 10:33 | PDOC PROGRESS REPORT ---
Subjective Progress Note for:: 11/21/18 Subjective:: No acute events overnight. She is very pleasant and cooperative with physical examination. P.o. tolerant, having normal bowel and bladder movements. Constipation has improved. Patient status post debridement of her bilateral metatarsal vesicles by surgery. She stating that she is feeling better denies any pain, fever, chills, nausea, vomiting, diarrhea, constipation or any urinary symptoms Reason For Visit: HYPERGLYCEMIA,HYPERKALEMIA Physical Exam Vital Signs: Temp Pulse Resp BP Pulse Ox 99.6 F 73 18 120/54 L 96 11/21/18 07:12 11/21/18 07:12 11/21/18 07:12 11/21/18 07:12 11/21/18 07:12 Intake & Output 11/20/18 11/21/18 11/22/18 06:59 06:59 06:59 Intake Total 2492 1504 Output Total 1999 1650 Balance 492 -146 Weight 130.6 kg 129.4 kg General appearance: PRESENT: no acute distress, well-developed, well-nourished Head exam: PRESENT: atraumatic, normocephalic Respiratory exam: PRESENT: clear to auscultation heron. ABSENT: rales, rhonchi, wheezes Cardiovascular exam: PRESENT: RRR. ABSENT: diastolic murmur, rubs, systolic murmur GI/Abdominal exam: PRESENT: normal bowel sounds, soft. ABSENT: distended, guarding, mass, organolmegaly, rebound, tenderness Extremities exam: PRESENT: full ROM, +1 edema. ABSENT: calf tenderness, clubbing, pedal edema Neurological exam: PRESENT: alert, awake, oriented to person, oriented to place, oriented to time, oriented to situation, CN II-XII grossly intact. ABSENT: motor sensory deficit Results Laboratory Results: 11/21/18 04:18 11/21/18 04:18 11/21/18 11/21/18 04:18 04:18 WBC 10.4 RBC 3.14 L Hgb 9.8 L Hct 28.7 L MCV 91 MCH 31.3 MCHC 34.2 RDW 13.6 Plt Count 402 Sodium 135.5 L Potassium 3.8 Chloride 96 L Carbon Dioxide 30 Anion Gap 10 BUN 28 H Creatinine 1.18 Est GFR ( Amer) 54 L Est GFR (Non-Af Amer) 45 L Glucose 122 H Calcium 9.1 Magnesium 1.4 L Total Bilirubin 0.3 AST 21 ALT 20 Alkaline Phosphatase 100 Total Protein 5.8 L Albumin 3.3 L 11/15/18 18:45 Foot - Blister Gram Stain - Final 11/15/18 18:45 Foot - Blister Wound Culture - Final Staphylococcus Lugdunensis Skin Sheela 11/07/18 11/07/18 11/08/18 18:00 20:33 04:10 Creatine Kinase 48 CK-MB (CK-2) Troponin I < 0.012 < 0.012 11/08/18 11/08/18 11/08/18 04:10 10:10 10:10 Creatine Kinase 54 CK-MB (CK-2) 0.81 0.93 Troponin I 0.018 0.023 11/08/18 11/08/18 16:15 16:15 Creatine Kinase 59 CK-MB (CK-2) 0.86 Troponin I 0.027 Impressions: Abdomen/Pelvis CT 11/07/18 22:18 IMPRESSION: 1. No acute intra-abdominal pathology. 2. Diverticulosis without inflammatory findings. 3. L4-L5 posterior spinal fusion with hardware grossly intact. 4. 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 Chest X-Ray 11/09/18 00:00 IMPRESSION: Right-sided dialysis catheter has been placed and is in good position. Renal Ultrasound 11/09/18 00:00 IMPRESSION: Small left renal cyst. The bladder is decompressed by Aleman catheter. No other significant findings. Venous Doppler Study 11/17/18 10:14 IMPRESSION: Bilateral acute DVT of the common femoral and femoral veins. Assessment & Plan - Diagnosis (1) Deep vein thrombosis (DVT) of femoral vein of both lower extremities Qualifiers: Chronicity: acute Qualified Code(s): I82.413 - Acute embolism and thrombosis of femoral vein, bilateral Is this a current diagnosis for this admission?: Yes Plan: Bilateral acute DVT of the common femoral and femoral veins. Switch to Xarelto 15 mg p.o. twice daily times 21 days 1020 p.o. daily. Follow- up with PCP. 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 She was switched on fondaparinux. Continue fondaparinux and switch NOACs. Also patient she stating that she does have history of recurrent DVTs. She has an IVC filter in place for several years and was never removed. For her previous DVT episode she was placed on Xarelto. Wants to be placed on Xarelto again. (2) Wound infection after surgery Is this a current diagnosis for this admission?: Yes Plan: Bilateral metatarsal. Patient had presented with cyanosis and necrosis of her bilateral metatarsals, initially she was diagnosed with ischemic limb Osito was consulted who did an arterial Doppler of both lower extremity with no significant abnormalities. Patient's metatarsal necrosis progressed to bullae in the dorsal medial aspect of bilateral feet which was debrided by surgery on 11/15/2018. Patient continued on wound care and a swab was sent on 11/19/2018 came back positive for Staphylococ cus Lugdunensis resistant to Augmentin, cefazolin, clindamycin, sensitive to Bactrim and vancomycin Initially patient was started on doxycycline but switched to Bactrim after susceptibility was available. Please monitor for kidney function as patient had kidney failure on this admission. BMP daily, wound care. (3) Swelling of both lower extremities Is this a current diagnosis for this admission?: Yes Plan: Mild Improvement. Likey localized venous insufficiency superimposed on underlying acute on chronic DVT No history of cirrhosis, normal renal function, negative proteinuria, protein to creatinine ratio 0.1. Left lower extremity 11/13/2018. 2D echo left ventricular ejection fraction more than 65%. Mild diastolic dysfunction. Continue Lasix p.o. guided by volume status. Monitor kidney function. (4) Toe cyanosis Is this a current diagnosis for this admission?: Yes Plan: Likely due to underlying Raynaud's or limited scleroderma. She will agree for being transferred only if she could be transferred to [facility] otherwise like to stay here. Since I started my shift she has been refusing to be transferred to a tertiary center because it will be too inconvenient for her . Had a conversation with and herself together and they are both in agreement. Status post debridement by surgery on 11/15/2018. Continue wound care. Anticentromere antibodies > 8. C3 175 C4 39. Anti-Eneida 1, SSA, SSB negative Rheumatoid factor LISETTE pending. Outpatient rheumatology follow-up. Outpatient surgery follow-up. Discussion has been made with the patient for possible transfer to another tertiary center where there are no other subspecialties but at this time she does not want to be transferred as her is here in [place] and it would be very difficult for him to visit her. Would like to be discharged home and follow-up with cuff slitter as outpatient. 11/12/2018. Bilateral lower extremity arterial Doppler. No hemodynamically significant lesions in the right lower extremity only ,on duplex imaging, at rest. Moderate hemodynamically significant lesions in the left lower extremity only, on duplex imaging, at rest. Evaluated vessels on the right seem normal. On the left compromise in the deep and femoral arteries is noted. Suboptimal study. Vascular surgery has been consulted no intervention at this point. She is to start amlodipine and heparin drip. Patient has thrombocytopenia since admission she received heparin on admission while use fondaparinux instead of just in case this is heparin-induced thrombocytopenia. PF4 pending. (5) Acute renal failure Is this a current diagnosis for this admission?: Yes Plan: Resolved. Normal urine output. Creatinine on admission 1.3. Highest creatinine 4.04. Likely secondary to contrast-induced nephropathy. Patient had a CT abdomen with contrast on admission. 11/09/2018. Renal ultrasound small left renal cyst otherwise normal kidneys. 11/10/2018 patient received hemodialysis. (6) Morbid obesity with BMI of 50.0-59.9, adult Is this a current diagnosis for this admission?: Yes Plan: Diet and lifestyle modification. (7) Diabetes mellitus type 2 in obese Is this a current diagnosis for this admission?: Yes Plan: Controlled. A1c on admission 10.7%. Diabetic diet, long-acting insulin, pre-meal insulin, adding a scale insulin, adjust dosage. Patient may benefit from oral hypoglycemics as outpatient after her kidney function has improved. (8) Hypothyroidism Qualifiers: Hypothyroidism type: unspecified Qualified Code(s): E03.9 - Hypothyroidism, unspecified Is this a current diagnosis for this admission?: Yes Plan: 11/08/2018. TSH 2.74, free T4 1.53, free T3 2.62. Patient does not take thyroid replacement therapy at home. (9) Avascular necrosis Is this a current diagnosis for this admission?: Yes Plan: 11/07/2018. 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 Orthopedic surgery has been consulted. A surgical candidate at this point. Outpatient follow-up with orthopedic surgery. Continue supportive measures. (10) Thrombocytopenia Is this a current diagnosis for this admission?: Yes Plan: Resolved. Platelets on admission 299 dropped to 85 3 days later. She had received heparin subcutaneous for DVT prophylaxis. Will use fondaparinux instead of heparin while lying out heparin-induced thrombocytopenia. PLT4 pending. Repeat tomorrow. Monitor for bleeding.
[2018-11-21] MEDS: ACETAMINOPHEN 325 MG TABLET PO PRN ×2 (14:17→20:34)
[2018-11-21 18:17] LABS: AMORPHOUS SEDIMENT,URINE TRACE /HPF; APPEARANCE,URINE CLOUDY; BILIRUBIN,URINE NEGATIVE (NEGATIVE); COLOR,URINE YELLOW; GLUCOSE, URINE NEGATIVE (NEGATIVE); KETONES,URINE NEGATIVE (NEGATIVE); LEUKOCYTE ESTERASE,URINE LARGE (NEGATIVE); NITRITE,URINE NEGATIVE (NEGATIVE); PROTEIN,URINE NEGATIVE (NEGATIVE); URINE SPECIFIC GRAVITY 1.006; UROBILINOGEN,URINE NEGATIVE mg/dL (<2.0)
[2018-11-22] MEDS: INSULIN LISPRO 100 UNIT/ML 3 ML VIAL SUBCUT SCH ×7 (08:24→23:29)
[2018-11-22] MEDS: METOCLOPRAMIDE HCL 10 MG TABLET PO SCH ×4 (08:28→21:45)
[2018-11-22] MEDS: RIVAROXABAN 15 MG TABLET PO SCH ×2 (08:28→17:34)
[2018-11-22] MEDS: SUCRALFATE SUSP 1 GM/10 ML UDCUP PO SCH ×4 (08:28→21:45)
[2018-11-22] MEDS: CALCIUM CARBONATE 500 MG TABLET PO SCH ×2 (10:01→17:35)
[2018-11-22] MEDS: AMLODIPINE BESYLATE 10 MG TABLET PO SCH (10:01)
[2018-11-22] MEDS: SILVER SULFADIAZINE 1% CREAM 400 GM TP SCH ×2 (10:01→17:36)
[2018-11-22] MEDS: SULFAMETHOXAZOLE/TRIMETHOPRIM 800-160 MG TABLET PO SCH ×2 (10:01→21:46)
[2018-11-22] MEDS: FAMOTIDINE 20 MG TABLET PO SCH ×2 (10:01→21:45)
[2018-11-22] MEDS: DOCUSATE SODIUM 100 MG CAPSULE PO SCH ×2 (10:02→17:25)
[2018-11-22] MEDS: FUROSEMIDE INJ/PF 40 MG/4 ML SDV IV SCH ×2 (10:02→17:32)
[2018-11-22] MEDS: POLYETHYLENE GLYCOL 3350 POWDER 17 GM/1 PACKET PO SCH (10:08)
[2018-11-22] MEDS: INSULIN DETEMIR 100 UNIT/ML 3 ML PEN SUBCUT SCH ×2 (13:42→23:28)
--- NOTE | 2018-11-22 15:06 | PDOC PROGRESS REPORT ---
Subjective Progress Note for:: 11/22/18 Subjective:: This is a 73 yr old female with a PMH of DM 2 and obesity who initially presented with generalized weakness and was noted have SIRS, hyperkalemia and lactic acidosis. In the interim, patient developed thrombocytopenia and was treated for possible HIT. She was initially started on argatroban drip and was eventually switched to Xarelto by preceding provider she has allergy to Coumadin. She was also found to have bilateral DVT of the common femoral veins. Patient also developed cyanosis on her toes bilaterally with some bullae. She underwent debridement by surgery on 11/15. She also had KERI from contrast-induced nephropathy form a CT study. No acute event overnight. Noted blood tissues on toes of both feet. She denies leg pain. Denies chest pain or shortness of breath. Reason For Visit: HYPERGLYCEMIA,HYPERKALEMIA Physical Exam Vital Signs: Temp Pulse Resp BP Pulse Ox 97.8 F 69 16 105/37 L 98 11/22/18 08:00 11/22/18 08:00 11/22/18 08:00 11/22/18 08:00 11/22/18 08:00 Intake & Output 11/21/18 11/22/18 11/23/18 06:59 06:59 06:59 Intake Total 1504 1244 Output Total 1650 2275 Balance -146 -1031 Weight 285 lb 4.45 oz 278 lb 7.101 oz General appearance: PRESENT: no acute distress, well-developed, well-nourished Head exam: PRESENT: atraumatic, normocephalic Eye exam: PRESENT: conjunctiva pink, EOMI, PERRLA. ABSENT: scleral icterus Ear exam: PRESENT: normal external ear exam Mouth exam: PRESENT: moist, tongue midline Neck exam: ABSENT: carotid bruit, JVD, lymphadenopathy, thyromegaly Respiratory exam: PRESENT: clear to auscultation heron. ABSENT: rales, rhonchi, wheezes Cardiovascular exam: PRESENT: RRR. ABSENT: diastolic murmur, rubs, systolic murmur Pulses: PRESENT: normal dorsalis pedis pul GI/Abdominal exam: PRESENT: normal bowel sounds, soft. ABSENT: distended, guarding, mass, organolmegaly, rebound, tenderness Rectal exam: PRESENT: deferred Extremities exam: PRESENT: +2 edema Musculoskeletal exam: PRESENT: other - Note of black tissues on the toes, bilaterally Neurological exam: PRESENT: alert, awake, oriented to person, oriented to place, oriented to time, oriented to situation, CN II-XII grossly intact. ABSENT: motor sensory deficit Results Laboratory Results: 11/21/18 04:18 11/21/18 04:18 11/21/18 18:00 Urine Color YELLOW Urine Appearance CLOUDY Urine pH 5.0 Ur Specific [place] 1.006 Urine Protein NEGATIVE Urine Glucose (UA) NEGATIVE Urine Ketones NEGATIVE Urine Blood LARGE H Urine Nitrite NEGATIVE Ur Leukocyte Esterase LARGE H Urine WBC (Auto) 66 Urine RBC (Auto) 97 11/19/18 12:35 Foot - Blister Gram Stain - Final 11/19/18 12:35 Foot - Blister Wound Culture - Final Staphylococcus Aureus 11/07/18 11/07/18 11/08/18 18:00 20:33 04:10 Creatine Kinase 48 CK-MB (CK-2) Troponin I < 0.012 < 0.012 11/08/18 11/08/18 11/08/18 04:10 10:10 10:10 Creatine Kinase 54 CK-MB (CK-2) 0.81 0.93 Troponin I 0.018 0.023 11/08/18 11/08/18 16:15 16:15 Creatine Kinase 59 CK-MB (CK-2) 0.86 Troponin I 0.027 Impressions: Abdomen/Pelvis CT 11/07/18 22:18 IMPRESSION: 1. No acute intra-abdominal pathology. 2. Diverticulosis without inflammatory findings. 3. L4-L5 posterior spinal fusion with hardware grossly intact. 4. 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 Chest X-Ray 11/09/18 00:00 IMPRESSION: Right-sided dialysis catheter has been placed and is in good position. Renal Ultrasound 11/09/18 00:00 IMPRESSION: Small left renal cyst. The bladder is decompressed by Aleman catheter. No other significant findings. Venous Doppler Study 11/17/18 10:14 IMPRESSION: Bilateral acute DVT of the common femoral and femoral veins. Assessment & Plan - Diagnosis (1) Deep vein thrombosis (DVT) of femoral vein of both lower extremities Qualifiers: Chronicity: acute Qualified Code(s): I82.413 - Acute embolism and thrombosis of femoral vein, bilateral Is this a current diagnosis for this admission?: Yes Plan: Initially on argatroban drip for possible HIT, subsequently switched to Xarelto. (2) Thrombocytopenia Is this a current diagnosis for this admission?: Yes Plan: Possible HIT. HIT antibodies ordered. As mentioned, patient was initially started on argatroban drip and was switched to Xarelto. Platelet counts have recovered. (3) Ischemic necrosis of toe Is this a current diagnosis for this admission?: Yes Plan: Patient underwent debridement on 11/15/18 by surgery. Continue daily wound care. (4) Acute kidney injury Is this a current diagnosis for this admission?: Yes Plan: Resolved. Secondary to contrast-induced nephropathy. Patient was evaluated by nephrology. Creatinine now at baseline. (5) Raynaud's disease Is this a current diagnosis for this admission?: Yes Plan: he had an autoimmune workup which was unremarkable aside from elevated anti centromere Abs. Possibility of scleroderma. Discussed with [facility] rheumatology. Will try to get a logistic specialist opinion from [place] or [facility] to get more input. (6) Hyperkalemia Is this a current diagnosis for this admission?: Yes Plan: Resolved. - Time Time Spent with patient: 35 or more minutes
[2018-11-22] MEDS: ACETAMINOPHEN 325 MG TABLET PO PRN (16:29)
[2018-11-23] MEDS: METOCLOPRAMIDE HCL 10 MG TABLET PO SCH ×4 (07:33→21:48)
[2018-11-23] MEDS: SUCRALFATE SUSP 1 GM/10 ML UDCUP PO SCH ×4 (07:33→21:48)
[2018-11-23] MEDS: INSULIN LISPRO 100 UNIT/ML 3 ML VIAL SUBCUT SCH ×7 (07:35→21:46)
[2018-11-23 08:06] LABS: HEMATOCRIT 27.9 % (36.0-47.0); HEMOGLOBIN 9.6 g/dL (12.0-15.5); MEAN CORPUSCULAR HEMOGLOBIN 31.5 pg (27.0-33.4); MEAN CORPUSCULAR HGB CONC 34.3 g/dL (32.0-36.0); MEAN CORPUSCULAR VOLUME 92 fl (80-97); PLATELET COUNT 415 10^3/uL (150-450); RED BLOOD COUNT 3.04 10^6/uL (3.72-5.28); RED CELL DISTRIBUTION WIDTH 13.8 % (11.5-14.0); WHITE BLOOD COUNT 7.4 10^3/uL (4.0-10.5)
[2018-11-23] MEDS: POLYETHYLENE GLYCOL 3350 POWDER 17 GM/1 PACKET PO SCH (09:23)
[2018-11-23] MEDS: DOCUSATE SODIUM 100 MG CAPSULE PO SCH ×2 (09:23→17:22)
[2018-11-23] MEDS: FAMOTIDINE 20 MG TABLET PO SCH ×2 (09:28→21:47)
[2018-11-23] MEDS: SULFAMETHOXAZOLE/TRIMETHOPRIM 800-160 MG TABLET PO SCH ×2 (09:28→21:48)
[2018-11-23] MEDS: RIVAROXABAN 15 MG TABLET PO SCH ×2 (09:28→17:22)
[2018-11-23] MEDS: FUROSEMIDE INJ/PF 40 MG/4 ML SDV IV SCH ×2 (09:28→17:22)
[2018-11-23] MEDS: CALCIUM CARBONATE 500 MG TABLET PO SCH ×2 (09:28→17:22)
[2018-11-23] MEDS: INSULIN DETEMIR 100 UNIT/ML 3 ML PEN SUBCUT SCH ×2 (09:29→21:47)
[2018-11-23] MEDS: AMLODIPINE BESYLATE 10 MG TABLET PO SCH (09:29)
[2018-11-23] MEDS: SILVER SULFADIAZINE 1% CREAM 400 GM TP SCH ×2 (09:34→17:23)
--- NOTE | 2018-11-23 15:29 | PDOC PROGRESS REPORT ---
Subjective Progress Note for:: 11/23/18 Reason For Visit: HYPERGLYCEMIA,HYPERKALEMIA Physical Exam Vital Signs: Temp Pulse Resp BP Pulse Ox 98.2 F 76 16 115/68 97 11/23/18 12:41 11/23/18 12:41 11/23/18 12:41 11/23/18 12:41 11/23/18 12:41 Intake & Output 11/22/18 11/23/18 11/24/18 06:59 06:59 06:59 Intake Total 1244 817 Output Total 0355 1575 Balance -1031 -758 Weight 126.3 kg 128.8 kg Pulses: PRESENT: +1 pedal pulses bilateral Musculoskeletal exam: PRESENT: other - evaluation of both feet, distal necrotic toes. and dorusm of rt foot. there is necrosis of distal toes bilat. without evidence of deep tissue infection. no expressable pus Results Laboratory Results: 11/23/18 07:30 11/21/18 04:18 11/23/18 07:30 WBC 7.4 RBC 3.04 L Hgb 9.6 L Hct 27.9 L MCV 92 MCH 31.5 MCHC 34.3 RDW 13.8 Plt Count 415 11/19/18 12:35 Foot - Blister Gram Stain - Final 11/19/18 12:35 Foot - Blister Wound Culture - Final Staphylococcus Aureus 11/07/18 11/07/18 11/08/18 18:00 20:33 04:10 Creatine Kinase 48 CK-MB (CK-2) Troponin I < 0.012 < 0.012 11/08/18 11/08/18 11/08/18 04:10 10:10 10:10 Creatine Kinase 54 CK-MB (CK-2) 0.81 0.93 Troponin I 0.018 0.023 11/08/18 11/08/18 16:15 16:15 Creatine Kinase 59 CK-MB (CK-2) 0.86 Troponin I 0.027 Impressions: Abdomen/Pelvis CT 11/07/18 22:18 IMPRESSION: 1. No acute intra-abdominal pathology. 2. Diverticulosis without inflammatory findings. 3. L4-L5 posterior spinal fusion with hardware grossly intact. 4. 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 Chest X-Ray 11/09/18 00:00 IMPRESSION: Right-sided dialysis catheter has been placed and is in good position. Renal Ultrasound 11/09/18 00:00 IMPRESSION: Small left renal cyst. The bladder is decompressed by Aleman catheter. No other significant findings. Venous Doppler Study 11/17/18 10:14 IMPRESSION: Bilateral acute DVT of the common femoral and femoral veins. Assessment & Plan - Plan Summary Plan Summary: bilat distal toe necrosis with secondary to ?etiol rheumatoid vs diabetic discussed with Dr Echols who suggested pt should have further w/U (could be outpatient) at tertiary center.\ at this point no need for amputation as this is dry gangrene and the toe tip will autoamputate pt could be discharged with home health or snf for continued dressing changes and\ will need referral to tertiary ctr for vascular eval.
[2018-11-23 19:04] LABS: APPEARANCE,URINE SLIGHTLY-CLOUDY; BILIRUBIN,URINE NEGATIVE (NEGATIVE); COLOR,URINE YELLOW; GLUCOSE, URINE NEGATIVE (NEGATIVE); KETONES,URINE NEGATIVE (NEGATIVE); LEUKOCYTE ESTERASE,URINE TRACE (NEGATIVE); NITRITE,URINE NEGATIVE (NEGATIVE); PROTEIN,URINE 30 mg/dL (NEGATIVE); URINE SPECIFIC GRAVITY 1.015; UROBILINOGEN,URINE NEGATIVE mg/dL (<2.0)
[2018-11-23] MEDS: MAGNESIUM SULFATE/D5W 1 GM/100 ML RTUPB IV SCH (19:30)
--- NOTE | 2018-11-23 19:30 | PDOC PROGRESS REPORT ---
Subjective Progress Note for:: 11/23/18 Subjective:: This is a 73 yr old female with a PMH of DM 2 and obesity who initially presented with generalized weakness and was noted have SIRS, hyperkalemia and lactic acidosis. In the interim, patient developed thrombocytopenia and was treated for possible HIT. She was initially started on argatroban drip and was eventually switched to Xarelto by preceding provider she has allergy to Coumadin. She was also found to have bilateral DVT of the common femoral veins. Patient also developed cyanosis on her toes bilaterally with some bullae. She underwent debridement by surgery on 11/15. She also had KERI from contrast-induced nephropathy form a CT study. No acute event overnight. Noted necrotic tissues on toes of both feet. She denies leg pain. Denies chest pain or shortness of breath. Discussed case with [facility] rheumatology. Reason For Visit: HYPERGLYCEMIA,HYPERKALEMIA Physical Exam Vital Signs: Temp Pulse Resp BP Pulse Ox 98.8 F 74 16 126/46 H 93 11/23/18 15:37 11/23/18 15:37 11/23/18 15:37 11/23/18 15:37 11/23/18 15:37 Intake & Output 11/22/18 11/23/18 11/24/18 06:59 06:59 06:59 Intake Total 1244 817 696 Output Total 2275 1575 500 Balance -1031 -758 196 Weight 278 lb 7.101 oz 283 lb 15.286 oz General appearance: PRESENT: no acute distress, well-developed, well-nourished Head exam: PRESENT: atraumatic, normocephalic Eye exam: PRESENT: conjunctiva pink, EOMI, PERRLA. ABSENT: scleral icterus Ear exam: PRESENT: normal external ear exam Mouth exam: PRESENT: moist, tongue midline Neck exam: ABSENT: carotid bruit, JVD, lymphadenopathy, thyromegaly Respiratory exam: PRESENT: clear to auscultation heron. ABSENT: rales, rhonchi, wheezes Cardiovascular exam: PRESENT: RRR. ABSENT: diastolic murmur, rubs, systolic murmur Pulses: PRESENT: normal dorsalis pedis pul GI/Abdominal exam: PRESENT: normal bowel sounds, soft. ABSENT: distended, guarding, mass, organolmegaly, rebound, tenderness Rectal exam: PRESENT: deferred Neurological exam: PRESENT: alert, awake, oriented to person, oriented to place, oriented to time, oriented to situation, CN II-XII grossly intact. ABSENT: motor sensory deficit Results Laboratory Results: 11/23/18 07:30 11/21/18 04:18 11/23/18 11/23/18 11/23/18 07:30 07:30 18:40 WBC 7.4 RBC 3.04 L Hgb 9.6 L Hct 27.9 L MCV 92 MCH 31.5 MCHC 34.3 RDW 13.8 Plt Count 415 Magnesium 1.6 Urine Color YELLOW Urine Appearance SLIGHTLY-CLOUDY Urine pH 5.0 Ur Specific [place] 1.015 Urine Protein 30 H Urine Glucose (UA) NEGATIVE Urine Ketones NEGATIVE Urine Blood MODERATE H Urine Nitrite NEGATIVE Ur Leukocyte Esterase TRACE H Urine WBC (Auto) 16 Urine RBC (Auto) 52 11/19/18 12:35 Foot - Blister Gram Stain - Final 11/19/18 12:35 Foot - Blister Wound Culture - Final Staphylococcus Aureus 11/07/18 11/07/18 11/08/18 18:00 20:33 04:10 Creatine Kinase 48 CK-MB (CK-2) Troponin I < 0.012 < 0.012 11/08/18 11/08/18 11/08/18 04:10 10:10 10:10 Creatine Kinase 54 CK-MB (CK-2) 0.81 0.93 Troponin I 0.018 0.023 11/08/18 11/08/18 16:15 16:15 Creatine Kinase 59 CK-MB (CK-2) 0.86 Troponin I 0.027 Impressions: Abdomen/Pelvis CT 11/07/18 22:18 IMPRESSION: 1. No acute intra-abdominal pathology. 2. Diverticulosis without inflammatory findings. 3. L4-L5 posterior spinal fusion with hardware grossly intact. 4. 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 Chest X-Ray 11/09/18 00:00 IMPRESSION: Right-sided dialysis catheter has been placed and is in good position. Renal Ultrasound 11/09/18 00:00 IMPRESSION: Small left renal cyst. The bladder is decompressed by Aleman catheter. No other significant findings. Venous Doppler Study 11/17/18 10:14 IMPRESSION: Bilateral acute DVT of the common femoral and femoral veins. Assessment & Plan - Diagnosis (1) Deep vein thrombosis (DVT) of femoral vein of both lower extremities Qualifiers: Chronicity: acute Qualified Code(s): I82.413 - Acute embolism and thrombosis of femoral vein, bilateral Is this a current diagnosis for this admission?: Yes Plan: Initially on Arixtra drip for possible HIT, subsequently switched to Xarelto. (2) Thrombocytopenia Is this a current diagnosis for this admission?: Yes Plan: Resolved. Possible HIT. HIT antibodies ordered. As mentioned, patient was initially started on Arixtra and was switched to Xarelto. Platelet counts have recovered. (3) Ischemic necrosis of toe Is this a current diagnosis for this admission?: Yes Plan: Patient underwent debridement on 11/15/18 by surgery. Continue daily wound care. (4) Acute kidney injury Is this a current diagnosis for this admission?: Yes Plan: Resolved. Secondary to contrast-induced nephropathy. Patient was evaluated by nephrology. Creatinine now at baseline. (5) Raynaud's disease Is this a current diagnosis for this admission?: Yes Plan: She had an autoimmune workup which was unremarkable aside from elevated anti centromere Abs. Possibility of scleroderma. Discussed with [facility] rheumatology. (6) Hyperkalemia Is this a current diagnosis for this admission?: Yes Plan: Resolved. - Time Time Spent with patient: 35 or more minutes
[2018-11-23] MEDS: ACETAMINOPHEN 325 MG TABLET PO PRN (19:55)
[2018-11-24 05:38] LABS: ANION GAP 10 (5-19); BLOOD UREA NITROGEN 27 mg/dL (7-20); CALCIUM 8.6 mg/dL (8.4-10.2); CARBON DIOXIDE 28 mmol/L (22-30); CHLORIDE 99 mmol/L (98-107); GLUCOSE 109 mg/dL (75-110); POTASSIUM 3.5 mmol/L (3.6-5.0)
--- NOTE | 2018-11-24 08:51 | PDOC CONSULTATION ---
Consultation Consult Date: 11/24/18 Attending physician:: VICKI JOHNSON Consult reason:: Concern of heparin-induced thrombocytopenia History of Present Illness Admission Date/PCP: 11/08/18 00:33 Patient complains of: Low platelets, necrotic toes History of Present Illness: ZAID DONALDSON is a 73 year old female who presented with DKA, acidosis, Sirs, confusion, upon admission platelet count was greater than 200, placed on prophylactic anticoagulation with heparin. Unfortunately she was confused and did not have much history here, but in discussion with the patient she remembers with hip surgery about 4-5 years ago in [place] she was told she had a "heparin allergy". And she actually was on Xarelto for a period of time thereafter. She was not on anticoagulation upon presentation. She was critically ill, and she was placed on heparin for prophylaxis, as this history was unknown. Over the next 4-5 days her platelet count dipped down and went down to the mid 60s, she began having some necrosis of her toes, it was quickly picked up by the hospitalist team who placed her on ARGATROBAN and within 24-48 hours of being on ARGATROBAN platelet count recovered and has since recovered. She was then placed back on Xarelto recently. Past Medical History Cardiac Medical History: Denies: Atrial Fibrillation, Coronary Artery Disease, DVT, Hyperlipidema, Hypertension, Pulmonary Embolism Pulmonary Medical History: Denies: Asthma, Chronic Obstructive Pulmonary Disease (COPD) EENT Medical History: Reports: Other - Bad teeth Denies: Cataracts Neurological Medical History: Denies: Multiple Sclerosis, Seizures Endocrine Medical History: Reports: Diabetes Mellitus Type 2, Hypothyroidism, Obesity Denies: Diabetes Mellitus Type 1, Hyperthyroidism Renal/ Medical History: Denies: Chronic Kidney Disease, Nephrolithiasis Malignancy Medical History: Reports: None GI Medical History: Denies: Cirrhosis, Hepatitis Musculoskeltal Medical History: Reports: Arthritis, Other - Recent right hip pain Denies: Fibromyalgia, Gout Skin Medical History: Denies: Eczema, Psoriasis Psychiatric Medical History: Reports: Depression Denies: Alcohol Dependency, Substance Abuse, Tobacco Dependency Traumatic Medical History: Reports: None Hematology: 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 Denies: Anemia, Bleeding Tendencies Infectious Medical History: Reports: None Past Surgical History Past Surgical History: Reports: Appendectomy, Hip Replacement, Orthopedic Surgery - Left hip replacement in [place] in 2016, back surgeries, Thyroidectomy, Other - Oophorectomy Social History Lives with: Spouse/Significant other Smoking Status: Former Smoker Frequency of Alcohol Use: Occasional Hx Recreational Drug Use: Yes Drugs: None Hx Prescription Drug Abuse: No - Advance Directive Resuscitation Status: Full Code Family History Family History: Arthritis, DM, Thyroid Disfunction Parental Family History Reviewed: Yes Children Family History Reviewed: Yes Sibling(s) Family History Reviewed.: Yes Medication/Allergy Home Medications: Aspirin [Ecotrin 81 mg EC Tablet] 81 mg PO DAILY 11/08/18 Diclofenac Sodium [Voltaren 50 Mg Tablet.Dr] 50 mg PO Q8HP PRN 11/08/18 Duloxetine HCl [Cymbalta] 60 mg PO DAILY 11/08/18 Glimepiride [Amaryl 4 mg Tablet] 4 mg PO DAILY 11/08/18 Krill/Om-3/Dha/Epa/Phospho/Ast [Megared [place]-3 Krill Oil Sfgl] 1 each PO DAILY 11/08/18 Lutein/Zeaxanthin [Lutein-Zeaxanthin 25-5 mg Sfgl] 1 each PO DAILY 11/08/18 Methocarbamol [Robaxin 500 mg Tablet] 500 mg PO Q12HP PRN 11/08/18 Omeprazole 20 mg PO DAILY 11/08/18 Ubidecarenone/Vit E Acet [Co Q-10 100 mg Softgel] 1 each PO DAILY 11/08/18 Allergies/Adverse Reactions: propoxyphene [From Darvocet-N] Allergy (Verified 11/07/18 18:11) warfarin Allergy (Verified 11/07/18 18:11) Penicillins Adverse Reaction (Verified 11/07/18 18:11) Review of Systems Constitutional: ABSENT: chills, fever(s), headache(s), weight gain, weight loss Eyes: ABSENT: visual disturbances Ears: ABSENT: hearing changes Cardiovascular: ABSENT: chest pain, dyspnea on exertion, edema, orthropnea, palpitations Respiratory: ABSENT: cough, hemoptysis Gastrointestinal: ABSENT: abdominal pain, constipation, diarrhea, hematemesis, hematochezia, nausea, vomiting Genitourinary: ABSENT: dysuria, hematuria Musculoskeletal: ABSENT: joint swelling Integumentary: ABSENT: rash, wounds Neurological: ABSENT: abnormal gait, abnormal speech, confusion, dizziness, focal weakness, syncope Psychiatric: ABSENT: anxiety, depression, homidical ideation, suicidal ideation Endocrine: ABSENT: cold intolerance, heat intolerance, polydipsia, polyuria Hematologic/Lymphatic: ABSENT: easy bleeding, easy bruising Physical Exam Vital Signs: Temp Pulse Resp BP Pulse Ox 97.6 F 66 20 146/56 H 99 11/24/18 07:31 11/24/18 07:31 11/24/18 07:31 11/24/18 07:31 11/24/18 07:31 Intake & Output 11/23/18 11/24/18 11/25/18 06:59 06:59 06:59 Intake Total 817 896 Output Total 1575 9075 Balance -758 -929 Weight 128.8 kg 126.2 kg General appearance: PRESENT: no acute distress, well-developed, well-nourished Head exam: PRESENT: atraumatic, normocephalic Eye exam: PRESENT: conjunctiva pink, EOMI, PERRLA. ABSENT: scleral icterus Ear exam: PRESENT: normal external ear exam Mouth exam: PRESENT: moist, tongue midline Neck exam: ABSENT: carotid bruit, JVD, lymphadenopathy, thyromegaly Respiratory exam: PRESENT: clear to auscultation heron. ABSENT: rales, rhonchi, wheezes Cardiovascular exam: PRESENT: RRR. ABSENT: diastolic murmur, rubs, systolic murmur Pulses: PRESENT: normal dorsalis pedis pul Vascular exam: PRESENT: normal capillary refill GI/Abdominal exam: PRESENT: normal bowel sounds, soft. ABSENT: distended, guarding, mass, organolmegaly, rebound, tenderness Rectal exam: PRESENT: deferred Extremities exam: PRESENT: full ROM. ABSENT: calf tenderness, clubbing, pedal edema Neurological exam: PRESENT: alert, awake, oriented to person, oriented to place, oriented to time, oriented to situation, CN II-XII grossly intact. ABSENT: motor sensory deficit Psychiatric exam: PRESENT: appropriate affect, normal mood. ABSENT: homicidal ideation, suicidal ideation Skin exam: PRESENT: dry, intact, warm. ABSENT: cyanosis, rash Results Laboratory Results: 11/23/18 07:30 11/24/18 04:40 11/23/18 11/23/18 11/24/18 07:30 18:40 04:40 Sodium 137.0 Potassium 3.5 L Chloride 99 Carbon Dioxide 28 Anion Gap 10 BUN 27 H Creatinine 1.39 H Est GFR ( Amer) 45 L Est GFR (Non-Af Amer) 37 L Glucose 109 Calcium 8.6 Magnesium 1.6 1.5 L Urine Color YELLOW Urine Appearance SLIGHTLY-CLOUDY Urine pH 5.0 Ur Specific [place] 1.015 Urine Protein 30 H Urine Glucose (UA) NEGATIVE Urine Ketones NEGATIVE Urine Blood MODERATE H Urine Nitrite NEGATIVE Ur Leukocyte Esterase TRACE H Urine WBC (Auto) 16 Urine RBC (Auto) 52 11/07/18 11/07/18 11/08/18 18:00 20:33 04:10 Creatine Kinase 48 CK-MB (CK-2) Troponin I < 0.012 < 0.012 11/08/18 11/08/18 11/08/18 04:10 10:10 10:10 Creatine Kinase 54 CK-MB (CK-2) 0.81 0.93 Troponin I 0.018 0.023 11/08/18 11/08/18 16:15 16:15 Creatine Kinase 59 CK-MB (CK-2) 0.86 Troponin I 0.027 Impressions: Abdomen/Pelvis CT 11/07/18 22:18 IMPRESSION: 1. No acute intra-abdominal pathology. 2. Diverticulosis without inflammatory findings. 3. L4-L5 posterior spinal fusion with hardware grossly intact. 4. 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 Chest X-Ray 11/09/18 00:00 IMPRESSION: Right-sided dialysis catheter has been placed and is in good position. Renal Ultrasound 11/09/18 00:00 IMPRESSION: Small left renal cyst. The bladder is decompressed by Aleman cath eter. No other significant findings. Venous Doppler Study 11/17/18 10:14 IMPRESSION: Bilateral acute DVT of the common femoral and femoral veins. Assessment & Plan - Diagnosis (1) HIT (heparin-induced thrombocytopenia) Is this a current diagnosis for this admission?: Yes Plan: So this is certainly clinical hit, she had an appropriate decrease in platelet count, did have a complication of bilateral DVT as well as necrosis, which would go along with this disorder. She has a previous history of "heparin allergy" as well. She should never be on heparin again. She will need to be on Xarelto lifelong. There is not much data with Xarelto and hit but theoretically it should work as it is a direct thrombin inhibitor just as Argatroban is. We will need to follow her as an outpatient. (2) Deep vein thrombosis (DVT) of femoral vein of both lower extremities Qualifiers: Chronicity: acute Qualified Code(s): I82.413 - Acute embolism and thrombosis of femoral vein, bilateral Is this a current diagnosis for this admission?: Yes Plan: She will need lifelong anticoagulation now, continue Xarelto - Time Time Spent: Greater than 70 Minutes
[2018-11-24] MEDS: DOCUSATE SODIUM 100 MG CAPSULE PO SCH (10:06)
[2018-11-24] MEDS: AMLODIPINE BESYLATE 10 MG TABLET PO SCH (10:06)
[2018-11-24] MEDS: FAMOTIDINE 20 MG TABLET PO SCH (10:06)
[2018-11-24] MEDS: RIVAROXABAN 15 MG TABLET PO SCH (10:07)
[2018-11-24] MEDS: SUCRALFATE SUSP 1 GM/10 ML UDCUP PO SCH ×2 (10:07→13:31)
[2018-11-24] MEDS: INSULIN DETEMIR 100 UNIT/ML 3 ML PEN SUBCUT SCH (10:07)
[2018-11-24] MEDS: FUROSEMIDE INJ/PF 40 MG/4 ML SDV IV SCH (10:07)
[2018-11-24] MEDS: POLYETHYLENE GLYCOL 3350 POWDER 17 GM/1 PACKET PO SCH ×2 (10:08→10:23)
[2018-11-24] MEDS: METOCLOPRAMIDE HCL 10 MG TABLET PO SCH ×2 (10:08→13:31)
[2018-11-24] MEDS: CALCIUM CARBONATE 500 MG TABLET PO SCH (10:08)
[2018-11-24] MEDS: SULFAMETHOXAZOLE/TRIMETHOPRIM 800-160 MG TABLET PO SCH (10:08)
[2018-11-24] MEDS: INSULIN LISPRO 100 UNIT/ML 3 ML VIAL SUBCUT SCH ×4 (10:08→13:32)
[2018-11-24] MEDS: SILVER SULFADIAZINE 1% CREAM 400 GM TP SCH (10:09)
[2018-11-24 16:09] VITALS: BP 131/46
--- NOTE | 2018-11-24 16:32 | PDOC DISCHARGE SUMMARY ---
General - Admit/Disc Date/PCP Admission Date/Primary Care Provider: 11/08/18 00:33 Discharge Date: 11/24/18 - Discharge Diagnosis (1) Deep vein thrombosis (DVT) of femoral vein of both lower extremities Is this a current diagnosis for this admission?: Yes (2) Thrombocytopenia Is this a current diagnosis for this admission?: Yes (3) Ischemic necrosis of toe Is this a current diagnosis for this admission?: Yes (4) Acute kidney injury Is this a current diagnosis for this admission?: Yes (5) Raynaud's disease Is this a current diagnosis for this admission?: Yes (6) Hyperkalemia Is this a current diagnosis for this admission?: Yes - Additional Information Resuscitation Status: Full Code Discharge Activity: Activity As Tolerated, Balance Activity w/Rest, Keep Legs Elevated Prescriptions: Losartan/Hydrochlorothiazide [Losartan-Hctz 50-12.5 mg Tab] 1 each PO DAILY #30 tablet Rivaroxaban [Xarelto 15 mg Tablet] 15 mg PO BID #30 tablet Home Medications: Aspirin [Ecotrin 81 mg EC Tablet] 81 mg PO DAILY 11/08/18 Diclofenac Sodium [Voltaren 50 mg Tablet.dr] 50 mg PO Q8HP PRN 11/08/18 Duloxetine HCl [Cymbalta] 60 mg PO DAILY 11/08/18 Glimepiride [Amaryl 4 mg Tablet] 4 mg PO DAILY 11/08/18 Krill/Om-3/Dha/Epa/Phospho/Ast [Megared [place]-3 Krill Oil Sfgl] 1 each PO DAILY 11/08/18 Lutein/Zeaxanthin [Lutein-Zeaxanthin 25-5 mg Sfgl] 1 each PO DAILY 11/08/18 Methocarbamol [Robaxin 500 mg Tablet] 500 mg PO Q12HP PRN 11/08/18 Omeprazole 20 mg PO DAILY 11/08/18 Ubidecarenone/Vit E Acet [Co Q-10 100 mg Softgel] 1 each PO DAILY 11/08/18 Losartan/Hydrochlorothiazide [Losartan-Hctz 50-12.5 mg Tab] 1 each PO DAILY #30 tablet 11/24/18 Rivaroxaban [Xarelto 15 mg Tablet] 15 mg PO BID #30 tablet 11/24/18 History of Present Illness History of Present Illness: Admitting hospitalist's H&P: ZAID DONALDSON is a 73 year old female presented to the emergency room with a 1 day history of severe generalized weakness. Patient admits that she began feeling severely weak earlier today and also noted intermittent mild nausea and a brief episode of mild abdominal cramping pain of a vague generalized nature. She decided to take a shower, however she soon had worsening of her weakness and became very lightheaded feeling like she may fall in the shower. She made her way to the bedroom and laid down on the bed and seemed to improve a little bit as long as she did not move. Any movement resulted in a significant increase in her sensation of weakness and nausea. She had a large bowel movement this morning and noticed a small amount of blood when she wiped which is not unusual for her. She denies prior similar episodes and has not identified any additional aggravating or ameliorating factors for her symptoms. In the emergency room she was found to to be hemodynamically stable, but to have a blood sugar of 498 as well as a leukocytosis of greater than 19,000. Her serum potassium was 5.9 and her serum lactate was initially 5.7 rising to 6.2 after receiving IV fluid therapy. Her BUN was slightly elevated at 23 and her cre atinine was slightly elevated at 1.3. With these findings patient was admitted for further evaluation and treatment of her SIRS syndrome. Hospital Course Hospital Course: This is a 73 yr old female with a PMH of DM 2, history of DVTs, prior IVC filter placement, history of HIT, and obesity who initially presented with generalized weakness and was noted have SIRS, hyperkalemia and lactic acidosis. She was admitted for possible sepsis. This is a highly complex case as detailed below. She was found to have UTI. She was started on antibiotics. She developed KERI from contrast-induced nephropathy from a CT of the abdomen study. She underwent temporary dialysis and was followed by nephrology. Her KERI did resolve and came back to baseline. In the interim, patient developed significant thrombocytopenia and was treated for possible HIT. She was initially started on Fondaparinux and was eventually switched to Xarelto as she has allergy to Coumadin. She developed bilateral DVT of the common femoral veins. Patient also developed cyanosis and necrosis on her toes bilaterally with some bullae. She underwent debridement by surgery on 11/15. She also had a right hip AVN and was seen by ortho and did not recommend intervention at this time. They will see her outpatient. Vascular surgery also evaluated patient. 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 Hematology/oncology was also consulted. Her overall clinical picture including the toe necrosis is consistently related to HIT. She did have an autoimmune work-up and came back only remarkable for elevated anti centromere antibodies. Discussed case with [facility] rheumatology, Dr. Hassan in length. Patient does have history of Raynaud's phenomenon (bluish discoloration) of feet but not hands. She has GERD but no apparent evidence of calcinosis, sclerodactyly, lung issues and other features. 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 [facility] recommends outpatient follow up with them for further auto immune work-up. Dr. Hassan will make arrangements for them to see her at their clinic in [place]. She was re-evaluated by surgery and vascular surgery. Her toes did respond to the debridement but she has still some necrotic tissues but are deemed to be "dry" per surgery and do not appear to need repeat debridement nor further antibiotics. Her Bactrim was d/john. She will be on lifelong anticoagulation. Heparin was also not listed on her allergy list. Patient says she did have history of developing low platelet from heparin years before but forgot about it. Heparin has been added to her allergy list. She will follow up with Dr. Bryson (hem/onc) for further hypercogulable work-up and [facility] in 1 week for further autoimmune work-up. She will also be following up with the wound care clinic, surgery and Dr. Sim Echols (vascular surgery). Physical Exam Vital Signs: Temp Pulse Resp BP Pulse Ox 98.8 F 78 20 131/46 H 92 11/24/18 14:57 11/24/18 14:57 11/24/18 14:57 11/24/18 14:57 11/24/18 14:57 Intake & Output 11/23/18 11/24/18 11/25/18 06:59 06:59 06:59 Intake Total 817 896 355 Output Total 1188 8705 400 Balance -758 -929 -45 Weight 283 lb 15.286 oz 278 lb 3.574 oz General appearance: PRESENT: no acute distress, well-developed, well-nourished Head exam: PRESENT: atraumatic, normocephalic Eye exam: PRESENT: conjunctiva pink, EOMI, PERRLA. ABSENT: scleral icterus Ear exam: PRESENT: normal external ear exam Mouth exam: PRESENT: moist, tongue midline Neck exam: ABSENT: carotid bruit, JVD, lymphadenopathy, thyromegaly Respiratory exam: PRESENT: clear to auscultation heron. ABSENT: rales, rhonchi, wheezes Cardiovascular exam: PRESENT: RRR. ABSENT: diastolic murmur, rubs, systolic murmur Pulses: PRESENT: normal dorsalis pedis pul GI/Abdominal exam: PRESENT: normal bowel sounds, soft. ABSENT: distended, guarding, mass, organolmegaly, rebound, tenderness Rectal exam: PRESENT: deferred Extremities exam: PRESENT: +2 edema Neurological exam: PRESENT: alert, awake, oriented to person, oriented to place, oriented to time, oriented to situation, CN II-XII grossly intact. ABSENT: motor sensory deficit Results Laboratory Results: 11/23/18 07:30 11/24/18 04:40 11/23/18 11/23/18 11/24/18 07:30 18:40 04:40 Sodium 137.0 Potassium 3.5 L Chloride 99 Carbon Dioxide 28 Anion Gap 10 BUN 27 H Creatinine 1.39 H Est GFR ( Amer) 45 L Est GFR (Non-Af Amer) 37 L Glucose 109 Calcium 8.6 Magnesium 1.6 1.5 L Urine Color YELLOW Urine Appearance SLIGHTLY-CLOUDY Urine pH 5.0 Ur Specific [place] 1.015 Urine Protein 30 H Urine Glucose (UA) NEGATIVE Urine Ketones NEGATIVE Urine Blood MODERATE H Urine Nitrite NEGATIVE Ur Leukocyte Esterase TRACE H Urine WBC (Auto) 16 Urine RBC (Auto) 52 Stool Occult Blood 11/24/18 11:14 Sodium Potassium Chloride Carbon Dioxide Anion Gap BUN Creatinine Est GFR ( Amer) Est GFR (Non-Af Amer) Glucose Calcium Magnesium Urine Color Urine Appearance Urine pH Ur Specific [place] Urine Protein Urine Glucose (UA) Urine Ketones Urine Blood Urine Nitrite Ur Leukocyte Esterase Urine WBC (Auto) Urine RBC (Auto) Stool Occult Blood NEGATIVE 11/07/18 11/07/18 11/08/18 18:00 20:33 04:10 Creatine Kinase 48 CK-MB (CK-2) Troponin I < 0.012 < 0.012 11/08/18 11/08/18 11/08/18 04:10 10:10 10:10 Creatine Kinase 54 CK-MB (CK-2) 0.81 0.93 Troponin I 0.018 0.023 11/08/18 11/08/18 16:15 16:15 Creatine Kinase 59 CK-MB (CK-2) 0.86 Troponin I 0.027 Impressions: Abdomen/Pelvis CT 11/07/18 22:18 IMPRESSION: 1. No acute intra-abdominal pathology. 2. Diverticulosis without inflammatory findings. 3. L4-L5 posterior spinal fusion with hardware grossly intact. 4. 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 Chest X-Ray 11/09/18 00:00 IMPRESSION: Right-sided dialysis catheter has been placed and is in good position. Renal Ultrasound 11/09/18 00:00 IMPRESSION: Small left renal cyst. The bladder is decompressed by Aleman catheter. No other significant findings. Venous Doppler Study 11/17/18 10:14 IMPRESSION: Bilateral acute DVT of the common femoral and femoral veins. Qualifiers - * PATIENT BEING DISCHARGED WITH ANY OF THE FOLLOWING DIAGNOSIS: No
== END 2018-11-24 17:11 | disposition home health service (06) | DRG 637 ==
LOC: ER 16:55 → EH 11-08 00:33 → 2N 11-08 05:09 → 5 11-08 15:27 → 3W 11-09 14:40
PROVIDERS: ADMIT Emergency Medicine; ATTEND Emergency Medicine
PROC: 02HV33Z Insertion of Infusion Device into Superior Vena Cava, Percutaneous Approach (ICD-10-PCS; 2018-11-08)
PROC: B548ZZA Ultrasonography of Superior Vena Cava, Guidance (ICD-10-PCS; 2018-11-08)
PROC: 5A1D70Z Performance of Urinary Filtration, Intermittent, Less than 6 Hours Per Day (ICD-10-PCS; principal; 2018-11-10)
PROC: 5A1D70Z Performance of Urinary Filtration, Intermittent, Less than 6 Hours Per Day (ICD-10-PCS; 2018-11-11)
PROC: 0HBRXZZ Excision of Toe Nail, External Approach (ICD-10-PCS; 2018-11-15)
PROC: 0HBRXZZ Excision of Toe Nail, External Approach (ICD-10-PCS; 2018-11-15)
PROC: 0HBRXZZ Excision of Toe Nail, External Approach (ICD-10-PCS; 2018-11-15)
PROC: 0HBRXZZ Excision of Toe Nail, External Approach (ICD-10-PCS; 2018-11-15)
PROC: 0HBRXZZ Excision of Toe Nail, External Approach (ICD-10-PCS; 2018-11-15)
PROC: 0HBRXZZ Excision of Toe Nail, External Approach (ICD-10-PCS; 2018-11-15)
PROC: 0HBRXZZ Excision of Toe Nail, External Approach (ICD-10-PCS; 2018-11-15)
PROC: 0HBRXZZ Excision of Toe Nail, External Approach (ICD-10-PCS; 2018-11-15)
PROC: 0HBRXZZ Excision of Toe Nail, External Approach (ICD-10-PCS; 2018-11-15)
PROC: 0HBRXZZ Excision of Toe Nail, External Approach (ICD-10-PCS; 2018-11-15)
PROC: 0HBNXZZ Excision of Left Foot Skin, External Approach (ICD-10-PCS; 2018-11-15)
PROC: 0HBMXZZ Excision of Right Foot Skin, External Approach (ICD-10-PCS; 2018-11-15)
DX: E11.10 Type 2 diabetes mellitus with ketoacidosis without coma (principal); R65.11 Systemic inflammatory response syndrome (SIRS) of non-infectious origin with acute organ dysfunction; I82.413 Acute embolism and thrombosis of femoral vein, bilateral; N17.9 Acute kidney failure, unspecified; M87.17 Osteonecrosis due to drugs, ankle, foot and toes; M87.151 Osteonecrosis due to drugs, right femur; Z68.41 Body mass index [BMI] 40.0-44.9, adult; I73.00 Raynaud's syndrome without gangrene; E87.5 Hyperkalemia; E66.9 Obesity, unspecified; E11.21 Type 2 diabetes mellitus with diabetic nephropathy; N14.1 Nephropathy induced by other drugs, medicaments and biological substances; T50.8X5A Adverse effect of diagnostic agents, initial encounter; Y92.012 Bathroom of single-family (private) house as the place of occurrence of the external cause; D75.82 Heparin induced thrombocytopenia (HIT); T45.515A Adverse effect of anticoagulants, initial encounter; K21.9 Gastro-esophageal reflux disease without esophagitis; M19.90 Unspecified osteoarthritis, unspecified site; F32.9 Major depressive disorder, single episode, unspecified; Z96.642 Presence of left artificial hip joint; E89.0 Postprocedural hypothyroidism; Y83.6 Removal of other organ (partial) (total) as the cause of abnormal reaction of the patient, or of later complication, without mention of misadventure at the time of the procedure; E83.42 Hypomagnesemia; B95.61 Methicillin susceptible Staphylococcus aureus infection as the cause of diseases classified elsewhere; Z23 Encounter for immunization; Z79.899 Other long term (current) drug therapy; Z87.891 Personal history of nicotine dependence; Z88.6 Allergy status to analgesic agent; Z88.0 Allergy status to penicillin; Z88.8 Allergy status to other drugs, medicaments and biological substances; Z82.61 Family history of arthritis; Z83.3 Family history of diabetes mellitus
CPT/HCPCS: 36415; 36600; 51701; 71045; 71046; 74177; 76775; 80048; 80053; 80061; 80074; 80307; 81001; 82010; 82272; 82550; 82553; 82570; 82803; 82962; 83036; 83520; 83605; 83690; 83735; 84100; 84156; 84300; 84439; 84443; 84481; 84484; 85025; 85027; 85610; 85652; 85730; 86022; 86160; 86162; 86225; 86235; 86431; 86701; 87070; 87077; 87086; 87186; 87205; 89190; 93005; 93010; 93306; 93925; 93970; 96361; 96365; 96367; 96375; 99285; C1752; J0610; J1200; J1644; J1652; J1815; J1940; J2270; J2300; J2405; J2543; J3010; J3475; J3490; J7030

== ENCOUNTER → 2018-12-13 | Outpatient (CLI) | payer MEDICARE, OTHER ==
[2018-12-13 17:31] LABS: ABSOLUTE BASOPHILS # (AUTO) 0.1 10^3/uL (0.0-0.2); ABSOLUTE EOSINOPHILS # (AUTO) 0.5 10^3/uL (0.0-0.6); ABSOLUTE LYMPHOCYTES (AUTO) 1.2 10^3/uL (0.5-4.7); ABSOLUTE MONOCYTES (AUTO) 0.4 10^3/uL (0.1-1.4); ABSOLUTE NEUT (AUTO) 5.1 10^3/uL (1.7-8.2); BASOPHILS % (AUTO) 0.8 % (0-2); EOSINOPHILS % (AUTO) 6.5 % (0-6); HEMATOCRIT 30.8 % (36.0-47.0); HEMOGLOBIN 10.3 g/dL (12.0-15.5); MEAN CORPUSCULAR HEMOGLOBIN 31.1 pg (27.0-33.4); MEAN CORPUSCULAR HGB CONC 33.3 g/dL (32.0-36.0); MEAN CORPUSCULAR VOLUME 93 fl (80-97); MONOCYTES % (AUTO) 5.2 % (3-13); PLATELET COUNT 414 10^3/uL (150-450); RED CELL DISTRIBUTION WIDTH 15.3 % (11.5-14.0); SEGMENTED NEUTROPHILS % (AUTO) 70.5 % (42-78); TOTAL CELLS COUNTED % (AUTO) 100 %; WHITE BLOOD COUNT 7.2 10^3/uL (4.0-10.5)
[2018-12-13 17:56] LABS: ALANINE AMINOTRANSFERASE 19 U/L (9-52); ALBUMIN 4.4 g/dL (3.5-5.0); ALKALINE PHOSPHATASE 98 U/L (38-126); ANION GAP 13 (5-19); ASPARTATE AMINO TRANSFERASE 20 U/L (14-36); BILIRUBIN,DIRECT 0.2 mg/dL (0.0-0.4); BILIRUBIN,TOTAL 0.4 mg/dL (0.2-1.3); BLOOD UREA NITROGEN 13 mg/dL (7-20); C-REACTIVE PROTEIN 20.6 mg/L (<10.0); CALCIUM 9.2 mg/dL (8.4-10.2); CARBON DIOXIDE 26 mmol/L (22-30); CHLORIDE 99 mmol/L (98-107); GLUCOSE 132 mg/dL (75-110); POTASSIUM 4.5 mmol/L (3.6-5.0); SODIUM 138.1 mmol/L (137-145); TOTAL PROTEIN 7.5 g/dL (6.3-8.2)
[2018-12-13 18:07] LABS: ERYTHROCYTE SEDIMENTATION RATE 67 mm/hr (0-30)
--- NOTE | 2018-12-14 08:21 | RADIOLOGY REPORT (SQ) ---
EXAM DESCRIPTION: FOOT BILATERAL 3 VIEWS COMPLETED DATE/TIME: 12/13/2018 5:16 pm REASON FOR STUDY: NON PRESSURE CHRONIC ULCER OF RT/LEFT FOOT WITH FAT LAYER EXPOSED L97.512 NON-PRS CHRONIC ULCER OTH PRT RIGHT FOOT W FAT LAYER L97.522 NON-PRS CHRONIC ULCER OTH PRT LEFT FOOT W FAT LAYER COMPARISON: Bilateral lower extremity venous Dopplers 11/17/2018 Bilateral lower extremity arterial Dopplers 11/10/2018 NUMBER OF VIEWS: Three views. TECHNIQUE: AP, lateral and oblique radiographic images acquired of the right and left foot. LIMITATIONS: None. FINDINGS: MINERALIZATION: Normal. BONES: Subacute nonunited left 5th toe proximal phalanx fracture marked with a lac courte oreilles. No other acute or chronic fractures. Bilateral plantar calcaneal spurs No aggressive demineralization or periostitis worrisome for osteomyelitis. JOINTS: No effusions. SOFT TISSUES: Diffuse bilateral forefoot soft tissue swelling. No foreign body. OTHER: No other significant finding. IMPRESSION: Diffuse bilateral forefoot soft tissue swelling. No soft tissue gas. No aggressive dem ineralization or periostitis worrisome for osteomyelitis. TECHNICAL DOCUMENTATION: JOB ID: [id number] 2007 [employer]- All Rights Reserved Reading location - IP/workstation name: [email or web address]
== END ==
LOC: OD 16:25
PROVIDERS: ATTEND Nurse Practitioner Family
DX: L97.512 Non-pressure chronic ulcer of other part of right foot with fat layer exposed (principal); L97.522 Non-pressure chronic ulcer of other part of left foot with fat layer exposed
CPT/HCPCS: 36415; 80053; 85025; 85652; 86140

== ENCOUNTER → 2019-05-02 | Outpatient (CLI) | payer MEDICARE, OTHER ==
[2019-05-02 13:54] LABS: ABSOLUTE BASOPHILS # (AUTO) 0.1 10^3/uL (0.0-0.2); ABSOLUTE EOSINOPHILS # (AUTO) 0.4 10^3/uL (0.0-0.6); ABSOLUTE LYMPHOCYTES (AUTO) 0.9 10^3/uL (0.5-4.7); ABSOLUTE MONOCYTES (AUTO) 0.4 10^3/uL (0.1-1.4); ABSOLUTE NEUT (AUTO) 5.9 10^3/uL (1.7-8.2); BASOPHILS % (AUTO) 0.8 % (0-2); EOSINOPHILS % (AUTO) 5.7 % (0-6); HEMATOCRIT 32.3 % (36.0-47.0); HEMOGLOBIN 10.6 g/dL (12.0-15.5); LYMPHOCYTES % (AUTO) 12.3 % (13-45); MEAN CORPUSCULAR HEMOGLOBIN 30.2 pg (27.0-33.4); MEAN CORPUSCULAR HGB CONC 32.9 g/dL (32.0-36.0); MEAN CORPUSCULAR VOLUME 92 fl (80-97); MONOCYTES % (AUTO) 5.4 % (3-13); PLATELET COUNT 331 10^3/uL (150-450); RED BLOOD COUNT 3.52 10^6/uL (3.72-5.28); SEGMENTED NEUTROPHILS % (AUTO) 75.8 % (42-78); TOTAL CELLS COUNTED % (AUTO) 100 %; WHITE BLOOD COUNT 7.7 10^3/uL (4.0-10.5)
[2019-05-02 15:19] LABS: ANION GAP 9 (5-19); BLOOD UREA NITROGEN 24 mg/dL (7-20); CALCIUM 9.2 mg/dL (8.4-10.2); CARBON DIOXIDE 25 mmol/L (22-30); CHLORIDE 105 mmol/L (98-107); GLUCOSE 111 mg/dL (75-110); POTASSIUM 5.1 mmol/L (3.6-5.0)
[2019-05-02 15:59] LABS: FREE T4 (FREE THYROXINE) 1.2 ng/dL (0.78-2.19)
[2019-05-02 16:13] LABS: THYROID STIMULATING HORMONE 14.6 uIU/mL (0.47-4.68)
== END ==
LOC: OD 12:55
PROVIDERS: ATTEND Nurse Practitioner Acute Care
DX: E03.9 Hypothyroidism, unspecified (principal); E11.9 Type 2 diabetes mellitus without complications; N17.9 Acute kidney failure, unspecified; Z86.2 Personal history of diseases of the blood and blood-forming organs and certain disorders involving the immune mechanism
CPT/HCPCS: 36415; 80048; 83036; 84439; 84443; 85025

== ENCOUNTER → 2019-05-02 | Outpatient (CLI) | payer MEDICARE, OTHER ==
[2019-05-02 13:49] LABS: ABSOLUTE BASOPHILS # (AUTO) 0.1 10^3/uL (0.0-0.2); ABSOLUTE EOSINOPHILS # (AUTO) 0.4 10^3/uL (0.0-0.6); ABSOLUTE LYMPHOCYTES (AUTO) 0.9 10^3/uL (0.5-4.7); ABSOLUTE MONOCYTES (AUTO) 0.4 10^3/uL (0.1-1.4); ABSOLUTE NEUT (AUTO) 5.9 10^3/uL (1.7-8.2); BASOPHILS % (AUTO) 0.8 % (0-2); EOSINOPHILS % (AUTO) 5.7 % (0-6); HEMATOCRIT 32.3 % (36.0-47.0); HEMOGLOBIN 10.6 g/dL (12.0-15.5); LYMPHOCYTES % (AUTO) 12.3 % (13-45); MEAN CORPUSCULAR HEMOGLOBIN 30.2 pg (27.0-33.4); MEAN CORPUSCULAR HGB CONC 32.9 g/dL (32.0-36.0); MEAN CORPUSCULAR VOLUME 92 fl (80-97); MONOCYTES % (AUTO) 5.4 % (3-13); PLATELET COUNT 331 10^3/uL (150-450); RED BLOOD COUNT 3.52 10^6/uL (3.72-5.28); SEGMENTED NEUTROPHILS % (AUTO) 75.8 % (42-78); TOTAL CELLS COUNTED % (AUTO) 100 %; WHITE BLOOD COUNT 7.7 10^3/uL (4.0-10.5)
[2019-05-02 14:28] LABS: ERYTHROCYTE SEDIMENTATION RATE 61 mm/hr (0-30)
[2019-05-02 15:15] LABS: ALANINE AMINOTRANSFERASE 19 U/L (9-52); ALBUMIN 3.9 g/dL (3.5-5.0); ALKALINE PHOSPHATASE 96 U/L (38-126); ANION GAP 9 (5-19); ASPARTATE AMINO TRANSFERASE 17 U/L (14-36); BILIRUBIN,DIRECT 0.3 mg/dL (0.0-0.4); BILIRUBIN,TOTAL 0.5 mg/dL (0.2-1.3); BLOOD UREA NITROGEN 24 mg/dL (7-20); CALCIUM 9.2 mg/dL (8.4-10.2); CARBON DIOXIDE 25 mmol/L (22-30); CHLORIDE 105 mmol/L (98-107); GLUCOSE 111 mg/dL (75-110); POTASSIUM 5.1 mmol/L (3.6-5.0); TOTAL PROTEIN 7.1 g/dL (6.3-8.2)
--- NOTE | 2019-05-02 16:42 | RADIOLOGY REPORT (SQ) ---
EXAM DESCRIPTION: FOOT LEFT COMPLETE; FOOT RIGHT COMPLETE COMPLETED DATE/TIME: 05/02/2019 1:42 pm REASON FOR STUDY: NON-PRS CHRONIC ULCER OTH PRT LEFT FOOT W NECROSIS OF BONE; NON-PRS CHRONIC ULCER OTH PRT RIGHT FOOT W NECROSIS OF BONE COMPARISON: None. FINDINGS: Three views right foot: Marked osteopenia. Truncated appearance of the distal phalanges throughout. This includes great toe, to a lesser extent 2nd toe and extensively throughout the 3rd, 4th and 5th toes. Consistent with osteomyelitis. Overlying soft tissue irregularity, presumed ulcer s through this area. Marked forefoot soft tissue edema. Three views of the left foot: Similar to the opposite foot, destructive appearance in the tips of al l the toes suggesting osteomyelitis. Osteopenic. Soft tissue swelling along the forefoot. TECHNICAL DOCUMENTATION: JOB ID: [id number] Reading location - IP/workstation name: [email or web address]
--- NOTE | 2019-05-02 16:42 | RADIOLOGY REPORT (SQ) ---
EXAM DESCRIPTION: FOOT LEFT COMPLETE; FOOT RIGHT COMPLETE COMPLETED DATE/TIME: 05/02/2019 1:42 pm REASON FOR STUDY: NON-PRS CHRONIC ULCER OTH PRT LEFT FOOT W NECROSIS OF BONE; NON-PRS CHRONIC ULCER OTH PRT RIGHT FOOT W NECROSIS OF BONE COMPARISON: None. FINDINGS: Three views right foot: Marked osteopenia. Truncated appearance of the distal phalanges throughout. This includes great toe, to a lesser extent 2nd toe and extensively throughout the 3rd, 4th and 5th toes. Consistent with osteomyelitis. Overlying soft tissue irregularity, presumed ulcer s through this area. Marked forefoot soft tissue edema. Three views of the left foot: Similar to the opposite foot, destructive appearance in the tips of al l the toes suggesting osteomyelitis. Osteopenic. Soft tissue swelling along the forefoot. TECHNICAL DOCUMENTATION: JOB ID: [id number] Reading location - IP/workstation name: [email or web address]
== END ==
LOC: WC 13:00
PROVIDERS: ATTEND Surgery
DX: L97.514 Non-pressure chronic ulcer of other part of right foot with necrosis of bone (principal); L97.524 Non-pressure chronic ulcer of other part of left foot with necrosis of bone
CPT/HCPCS: 36415; 85652; 86140; 87070

== ENCOUNTER → 2019-12-21 | Day surgery (SDC) | payer MEDICARE, OTHER ==
[~2019-12-21] MED LIST: BUPIVACAINE HCL 0.5 % INJ/PF 30 ML SDV ONE; LIDOCAINE 1% INJ-PF (10 MG/ML) 30 ML SDV ONE
--- NOTE | 2019-12-21 09:42 | Operative Report ---
PROCEDURE: 1. Right articular branch of femoral nerve radiofrequency denervation 2. Right articular branch of obturator nerve radiofrequency denervation Preoperative Diagnosis: Right osteoarthritis Hip Postoperative Diagnosis: Right osteoarthritis Hip DATE OF PROCEDURE: December 21, 2019 ANESTHESIA: Local anesthesia COMPLICATIONS: none reported PROCEDURE IN DETAIL: Hx/PE/meds/allergies/applicable labs reviewed. No changes and no contraindications were found. Full description of the procedure was provided including benefits as well as possible complications including transient increased pain, stomach irritation, mood alteration, transient weakness or parathesias as well as more serious nerve injury, bleeding, infection or allergic reaction. Informed consent was obtained and documented. The patient was brought to the procedure room and placed on the exam table in a comfortable supine position. The place for the needle placement was obtained by manual palpation with radiographic confirmation. The sterile field was prepared and sterile drapes. Local anesthesia superficial and deep was provided by local infiltration of 6 ml 1 % lidocaine. Using fluoroscopic guidance a 17g 150 mm radiofrequency needle with 4mm active tip was advanced to the anteromedial aspect of the extraarticular portion of the hip joint where the articular branch of the femoral nerve traverses until a bony endpoint is felt. Attempted aspiration yielded no blood. Motor testing was then performed with 2hz at 2 volts and no lower extremity motor stimulation was observed. 2 cc of .5 % marcaine was injected through the RF needle. A radiofrequency lesion of the articular branch of the femoral nerve was then performed at 80 degrees C for 2 min and 30 seconds. The needle was then withdrawn. A second needle was placed and using fluoroscopic confirmation with ULTRASOUND guidance the needle was advanced to the incisura of the acetabulum where the articular branch of the obturator nerve traverses until a bony endpoint was met. Attempted aspiration yielded no blood. Radiographs were made. Motor testing was then performed with 2hz at 2 volts and no lower extremity motor stimulation was observed. 2cc .5 % marcaine was injected through the RF needle. A radiofrequency lesion of the articular branch of the obturator nerve was then performed at 80 degrees C for 2 minutes and 30 seconds. The needle was then withdrawn. The patient tolerated the procedure well. After observation the patient was discharged with instructions and follow up. They were also provided contact information to call regarding any concerning symptoms or questions. IMPRESSION: 1. Successful radiofrequency ablations of the articular branches of the obturator and femoral nerves was performed. 2. Follow up in 1-2 weeks to assess the efficacy of the procedure. 3. Estimated Blood Loss: 0 4. Disposition: home
== END ==
LOC: RAD 09:18
PROVIDERS: ATTEND Family Medicine
DX: M16.11 Unilateral primary osteoarthritis, right hip (principal)
CPT/HCPCS: 64640 ×2; J3490 ×2

== ENCOUNTER 2019-12-27 09:49 | Day surgery (SDC) | payer MEDICARE, OTHER ==
[~2019-12-27 09:49] MED LIST changes: -BUPIVACAINE HCL 0.5 % INJ/PF 30 ML SDV ONE; +CHONDR SU A NA/HYALUR INTRAOC KIT (SURGICARE) ONE; +DORZOLAMIDE HCL 2%/TIMOLOL MALEAT 0.5% OPH SOLN 10 ML OD PRN; +EPINEPHRINE INJ/PF 1 MG/1 ML AMPULE ONE; +KETOROLAC TROMETHAMINE 0.45% 4 DROP/0.4 ML DROPERETTE OD PRN; -LIDOCAINE 1% INJ-PF (10 MG/ML) 30 ML SDV ONE; +LIDOCAINE 1%/PHENYLEPHRINE 1.5% 1 ML VIAL ONE; +MIDAZOLAM 2 MG/2 ML INJ ONE
[2019-12-27] MEDS: TETRACAINE HCL 0.5% OPH SOLN 4 ML OD PRN ×3 (10:15→10:44)
[2019-12-27] MEDS: TROPICAMIDE 1% OPH SOLN 15 ML OD PRN ×3 (10:15→10:32)
[2019-12-27] MEDS: CYCLOPENTOLATE 0.2%/PHENYLEPHRINE 1% OPH SOLN 2 ML OD PRN ×3 (10:15→10:32)
[2019-12-27] MEDS: BESIFLOXACIN HCL 0.6% OPH SUSP 5 ML BOTTLE OD PRN ×3 (10:15→11:08)
[2019-12-27] MEDS ORDERED: MIDAZOLAM 2 MG/2 ML INJ ONE (10:57)
--- NOTE | 2019-12-27 14:34 | Operative Report ---
Operative Report-[facility] Operative Report: DATE OF SURGERY: December 27, 2019 PREOPERATIVE DIAGNOSIS: NUCLEAR CATARACT, RIGHT EYE. POSTOPERATIVE DIAGNOSIS: NUCLEAR CATARACT, RIGHT EYE. PROCEDURE PERFORMED: PHACOEMULSIFICATION WITH POSTERIOR CHAMBER INTRAOCULAR LENS IMPLANT, RIGHT EYE. SURGEON: Zelalem Linda DO MEDICATIONS AND ANESTHESIA: Versed: IV Versed Tetracaine drops: 1 to 2 drops given as needed COMPLICATION: None INDICATIONS FOR SURGERY: Medical necessity: Best corrected visual acuity worse than 20/40 secondary to cataracts with impairment of ability to carry out needs or desired activities, blurred vision, visual distortion, reduced contrast sensitivity and/or glare with association functional impairment and supporting documentation/testing, and cataracts causing symptomatic impairment of visual functions not corrected with tolerable changes in glasses or contact lenses interfering with activities of daily life. PROCEDURE: Consent: The risks, benefits and alternatives of this procedures was discussed with the patient. The patient read and signed the consent forms, was identified and was seated in the exam chair. IOL: MX 60 E 24.0 IOL Diopters: Phacoemulsification with posterior chamber intraocular lens implant: The face was prepped with 5% povidone iodine solution, and a few drops of 5% povidone iodine solution was instilled into the inferior fornix. A non-fenestrated drape was placed over the eye and the lids were parted with the speculum. A paracentesis was made with a 15 degree blade, and 1% lidocaine MPF followed by viscoelastic was injected into the anterior chamber. A 2.4 mm metal micro- keratome was used to create a temporal clear corneal incision. A circular anterior capsulorrhexis was created, followed by hydro-dissection and hydro- delineation. The phacoemulsification hand piece was inserted and the nucleus was removed with the Phaco chop technique. The irrigation-aspiration hand piece was used to remove the residual cortex, and vacuum the posterior capsule. The capsular bag was inflated and viscoelastic and the above-mentioned IOL was injected into the eye with care to insert both leaning and trailing haptics in the capsular bag. The irrigation/aspiration hand piece was reinserted to remove residual viscoelastic from the capsular bag and anterior chamber. The corneal incision was hydrated, and anterior chamber was inflated with sterile BSS via the paracentesis site, and found to be watertight. Postop medication: 1 drop of prednisolone into operative by followed by 1 drop of Cosopt into operative eye followed by 1 drop of Besivance intraoperative by other:
== END 2019-12-27 12:03 | disposition home or self-care (01) ==
LOC: SC 09:49
PROVIDERS: ATTEND Ophthalmology
DX: H25.12 Age-related nuclear cataract, left eye (principal); E11.9 Type 2 diabetes mellitus without complications; I10 Essential (primary) hypertension; Z87.891 Personal history of nicotine dependence; Z79.899 Other long term (current) drug therapy; Z88.8 Allergy status to other drugs, medicaments and biological substances; Z88.0 Allergy status to penicillin; Z79.82 Long term (current) use of aspirin; E66.9 Obesity, unspecified
CPT/HCPCS: 66984; 82962; 00142; V2632; J2250; J3490 ×2; A9270; J0171; 142